=== PATIENT | male | born 1945 | race Caucasian/White ===

== ENCOUNTER 2019-06-25 07:41 | Inpatient (IN) ==
--- NOTE | 2019-05-30 09:30 | PAT Medication Instructions ---
Medication Instructions Date of Service May 30, 2019 Home Medications Levemir FlexTouch U-100 Insuln 24 unit SUBCUT QPM Novolog Flexpen U-100 Insulin 6 - 12 unit SUBCUT TIDM aspirin [Aspir-81] 81 mg PO HS metformin 1,000 mg PO BIDM rosuvastatin 20 mg PO HS lisinopril 20 mg PO QDD ASK your prescriber and surgeon aspirin [Aspir-81] 81 mg PO HS DO NOT take the morning of surgery Novolog Flexpen U-100 Insulin 6 - 12 unit SUBCUT TIDM metformin 1,000 mg PO BIDM Take evening before surgery Levemir FlexTouch U-100 Insuln 24 unit SUBCUT QPM Novolog Flexpen U-100 Insulin 6 - 12 unit SUBCUT TIDM metformin 1,000 mg PO BIDM rosuvastatin 20 mg PO HS lisinopril 20 mg PO QDD Other Notes If you have any questions please call us at [phone] or [phone] or [phone] or [phone]
--- NOTE | 2019-05-30 11:22 | Anesthesiology Consultation ---
Date of Service May 30, 2019 Assessment & Plan (1) Encounter for pre-operative examination: - Abnormal stress test (2017): per patient, subsequent cardiac cath done (most recent he believes was 02/2019 at [facility]) with unremarkable findings. Attemp ting to obtain most recent cardiac testing (including cardiac cath since abnormal stress test) and cardiology office optimization response (Dr. Keith). - Awaiting review preop testing (labs, EKG, CXR). - ASA instructions per surgeon/cardiology. Chart Review Chart Review: Patient seen in Pre Admission Testing Teaching & Discussion Pre-Anesthesia Teaching/Discussion Notes: Instructed NPO after midnight before surgery,except medications with 15 cc of water. Medication instructions provided according to the PAT guidelines. History Surgery Operation Date: 06/25/19 07:30 Proposed Procedures p Right Reversed Total Shoulder Arthroplasty - Abhijit Cabral MD Height/Weight Height: 6 ft Weight: 99.1 kg Allergies Allergy/AdvReac Type Severity Reaction Status Date / Time erythromycin base AdvReac Intermediate N/V, Verified 05/30/19 11:21 hematuria shellfish derived AdvReac severe Verified 05/30/19 11:21 nausea Medications Home Medications Medication Instructions Recorded Confirmed Last Taken Levemir FlexTouch U-100 Insuln 24 unit SUBCUT QPM 06/10/18 05/26/19 06/20/18 22:00 Novolog Flexpen U-100 Insulin 6 - 12 unit SUBCUT TIDM 06/10/18 05/26/19 06/20/18 19:00 aspirin [Aspir-81] 81 mg PO HS 06/10/18 05/26/19 06/20/18 23:30 metformin 1,000 mg PO BIDM 06/10/18 05/26/19 06/18/18 18:00 rosuvastatin 20 mg PO HS 06/10/18 05/26/19 06/20/18 22:00 lisinopril 20 mg PO QDD 05/26/19 05/26/19 Unknown Past Medical History Medical History Degenerative disc disease cervical/lumbar with UE/LE radiculopathy Diabetes mellitus, type 2 IDDM Hiatal hernia Hx of skin cancer, basal cell Hyperlipidemia Hypertension Neuropathy of both feet results in difficulty with ambulation Osteoarthritis Sleep apnea did not tolerate CPAP Exercise / Class Metabolic Activity II 4-5 Yardwork/Stairs/Walk up hill Past Family History Family History Mother Family history of diabetes mellitus Grandfather (Paternal) Family history of diabetes mellitus Grandmother (Maternal) Family history of diabetes mellitus Past Surgical History Surgical History History of bunionectomy WITH SANCHEZ IMPLANTED - RIGHT History of cardiac cath 02/2019 (per patient, attempting to obtain) = NO STENTS History of eye surgery b/l UE eyelid "lift" + eye fat pad excision History of lumbar fusion Hardware removal, L3-L4 decompression/fusion: 06/21/18: Grade 1 view, MAC#3, ETT 8.0 at [facility] History of tonsillectomy and adenoidectomy + UVULA REMOVED Hx of LASIK BILATERAL EYES Hx of bilateral cataract extraction Hx of colonoscopy Hx of nasal septoplasty Hx of rotator cuff surgery 3 L/1 R Hx of thumb surgery X2 - STEEL ASNCHEZ IMPLANTED Hx of total hip arthroplasty RIGHT Past Anesthesia History No Hx of Anesthesia Complications and No Family Hx of Anesthesia Complications History of PONV No Hx of PONV and No Hx of Motion Sickness Social History Smoking Status: Never smoker Do You Dip or Chew Tobacco: No Hx Alcohol Use: Yes Alcohol type: wine alcohol intake frequency: a few times a month Hx Substance Use: No substance use type: does not use Review of Systems Seasonal allergies/congestion. Patient denies chest pain, shortness of breath, dyspnea on exertion, reflux, cough, wheezing, palpitations. Physical Exam Vital Signs VITALS BP 126/70 P 53 TEMP 97.6 SP02 99%RA RESP 16 PHYSICAL Full neck and c-spine range of motion. Full TMJ range of motion. TMD 3 finger breaths Mallampati Score 1 Dentition: several implants, several caps including upper front Lungs: clear throughout to auscultation Cardiac: regular rate and rhythm, no murmurs noted Spine: normal Carotid arteries: negative bruit Extremities: no edema Eyelid tape and lower eyelid bruising s/p recent eyelid "lift" and lower eye "fa t pad" excision Testing Laboratory Results 05/30/19 11:40 05/30/19 11:40 PT 9.8 Seconds (9.0-12.0) 05/30/19 11:40 INR 1.0 (0.9-1.1) 05/30/19 11:40 APTT 25.1 Seconds (21.0-31.0) 05/30/19 11:40 Urine Color Yellow 05/30/19 Unknown Urine Appearance Clear (Clear) 05/30/19 Unknown Urine pH 5.0 (4.5-7.5) 05/30/19 Unknown Ur Specific [place] 1.022 (1.000-1.030) 05/30/19 Unknown Urine Protein Negative (Negative) 05/30/19 Unknown Urine Glucose (UA) 3+ (Negative) H 05/30/19 Unknown Urine Ketones Negative (Negative) 05/30/19 Unknown Urine Nitrite Negative (Negative) 05/30/19 Unknown Ur Leukocyte Esterase Negative (Negative) 05/30/19 Unknown Stress Test Date: 08/15/17 Type: exercise Exercise stress ECHO with basal and mid anterolateral ischemia. Good functional status for age. 10 METS. EF 55%. *Per patient, subsequent cardiac cath done ([facility])*
--- NOTE | 2019-05-30 12:04 | XRay Report ---
TWO VIEW CHEST CLINICAL HISTORY: Preoperative examination. FINDINGS: PA and lateral chest radiographs are compared to study dated 06/13/2018. The heart is mildl y enlarged noting atherosclerotic calcification of the thoracic aorta. Chronic interstitial thickenin g is similar to previous. No airspace consolidation or pleural effusion is identified. There is no pn eumothorax. The skeletal structures are osteopenic. The bony thorax appears intact. IMPRESSION: Mild cardiomegaly with no active disease in the chest. Electronically signed by: Alejandro Mercedes M.D. 05/30/2019 12:03 PM
[2019-05-30 12:39] LABS: Appearance Urine Clear (Clear); Bilirubin Urine Negative (Negative); Blood Urine Negative (Negative); Color Urine Yellow; Glucose Urine UA 3+ (Negative); Ketones Urine Negative (Negative); Leukocyte Esterase Urine Negative (Negative); Nitrite Urine Negative (Negative); Protein Urine Negative (Negative); Specific Gravity Urine 1.022 (1.000-1.030); Urobilinogen Urine Negative (Negative)
[2019-05-30 12:39] LABS: Basophils # (auto) 0.04 K/uL (0-0.2); Basophils % (auto) 0.5 %; Eosinophils % (auto) 1.3 %; Hematocrit (blood only) 42.9 % (42-52); Hemoglobin 14.7 g/dL (14.0-18.0); Immature Granulocytes # (auto) 0.02 K/uL (0.00-0.02); Immature Granulocytes % (auto) 0.3 %; Lymphocytes # (auto) 2.33 K/uL (1.2-3.4); Mean Corpuscular Hemoglobin 30.9 pg (25-34); Mean Corpuscular Hgb Conc 34.3 g/dL (32-36); Mean Corpuscular Volume 90.1 fL (80-100); Mean Platelet Volume 9.6 fL (7.4-10.4); Monocytes # (auto) 0.66 K/uL (0.11-0.59); Monocytes % (auto) 8.8 %; Neutrophils # (auto) 4.37 K/uL (1.4-6.5); Neutrophils % (auto) 58.1 %; Platelet Count 224 K/uL (130-400); RDW Coefficient of Variation 12.7 % (11.5-14.5); Red Blood Count 4.76 M/uL (4.7-6.1); White Blood Count 7.52 K/uL (4.8-10.8)
[2019-05-30 12:53] LABS: Partial Thromboplastin Ratio 0.9; Partial Thromboplastin Time 25.1 Seconds (21.0-31.0); Prothrombin Time 9.8 Seconds (9.0-12.0)
[2019-05-30 12:54] LABS: Albumin Level 3.8 gm/dl (3.4-5.0); Calcium 9.6 mg/dl (8.5-10.1); Creatinine Clr Calc Pharmacy 61.8 ml/min; Est GFR (African American) 64.2; Est GFR (Non-African American) 55.4; Potassium 4.5 mmol/L (3.5-5.1)
[2019-05-30 13:10] LABS: Estimated Average Glucose 171 mg/dl; Hemoglobin A1C 7.6 % (4.5-5.6)
--- NOTE | 2019-06-24 19:02 | History and Physical Report ---
DATE OF ADMISSION: 06/25/2019 CHIEF COMPLAINT: Right shoulder pain and weakness. HISTORY OF PRESENT ILLNESS: This is a 74-year-old male patient of Dr. Wilson, complaining of chronic right shoulder pain and weakness, longstanding, now progressively getting worse. The patient has failed conservative treatment including a rotator cuff repair in the past. MRI has confirmed chronic rotator cuff tear. The patient wished to proceed with a right reverse total shoulder arthroplasty. PAST MEDICAL HISTORY: Hypertension, hypercholesterolemia, sleep apnea with the use of CPAP, peripheral neuropathy, diabetes mellitus with insulin, spine problems, neck problems, upper back problems, sciatica, skin cancer. SOCIAL HISTORY: Nonsmoker, occasional drinker. FAMILY HISTORY: Noncontributory. REVIEW OF SYSTEMS: Chronic right shoulder pain and decreased strength, otherwise denies any shortness of breath, chest pain, nausea, vomiting or any other joint complaints. PAST SURGICAL HISTORY: Tonsillectomy, LASIK, shoulder surgery, bilateral eyes, right total hip, right thumb and lumbar surgery x2. ALLERGIES: ERYTHROMYCIN AND SHELLFISH. PHYSICAL EXAMINATION: GENERAL: Well-developed, well-nourished 74-year-old male in no acute distress. He is alert and oriented x3 and pleasant. HEENT: Normocephalic, atraumatic. Extraocular motions are intact. Pupils are equal and reactive to light. HEART: Regular rate and rhythm. No murmurs appreciated. LUNGS: Clear. ABDOMEN: Soft, nontender, bowel sounds present. EXTREMITIES: Right shoulder full range of motion with pain. He has crepitation with passive range of motion. He has 4/5 strength. Neurologically and neurovascularly, he is intact in his right upper extremity. DIAGNOSES: Right shoulder rotator cuff arthropathy, hypertension, hypercholesterolemia, sleep apnea, peripheral neuropathy, diabetes mellitus with insulin, spine problems, neck problems, upper back problems, sciatica, skin cancer. PLAN: The patient was advised of her diagnosis. Indications, risks, benefits, postop course have all been reviewed. The patient wishes to proceed with a right reversed total shoulder arthroplasty. Necessary consent forms, preoperative testing and clearances will be obtained.
[~2019-06-25 07:41] MED LIST: ACETAMINOPHEN 500 MG TAB PO SCH; CEFAZOLIN 2000MG 2,000 MG/15 ML SYR IV SCH; CeleBREX 200 MG CAP PO SCH; FAMOTIDINE 20 MG TAB PO SCH; GABAPENTIN 300 MG CAP PO SCH; LR 15ML/HR IV SCH; METOCLOPRAMIDE HCL 10 MG TABLET PO SCH; ROPIVACAINE 0.5% 5 MG/ML 30 ML VIAL ONE
[2019-06-25] MEDS ORDERED: LIDOCAINE HCL 2% 2 ML VIAL/AMP(20MG/ML) INFIL ONE (09:26)
[2019-06-25] MEDS ORDERED: PROPOFOL IV EMULSION 10 MG/ML 20 ML VIAL IV ONE (09:26)
[2019-06-25] MEDS ORDERED: DEXAMETHASONE SOD INJ 4 MG/ML VIAL ONE (09:26)
[2019-06-25] MEDS ORDERED: MIDAZOLAM HCL 1 MG/ML 2ML VIAL ONE ×2 (09:26)
[2019-06-25] MEDS ORDERED: GLYCOPYRROLATE 0.2 MG/ML VIAL ONE ×2 (09:26→11:49)
[2019-06-25] MEDS ORDERED: ONDANSETRON INJ 2 MG/ML 2 ML VIAL ONE (09:26)
[2019-06-25] MEDS ORDERED: NEOSTIGMINE METHYLSULFATE 5 MG/5 ML SYR ONE (09:26)
[2019-06-25] MEDS ORDERED: fentaNYL citrate 100 MCG/2 ML VIAL ONE (09:27)
--- NOTE | 2019-06-25 10:25 | History & Physical Bridge Note ---
Date of Service June 25, 2019 History & Physical Bridge Note I have examined the patient, reviewed the History & Physical and in the interval since the performance of the History & Physical I have noted the following changes of clinical significance: no changes noted
[2019-06-25] MEDS ORDERED: BACITRACIN INJ 50,000 UNIT VIAL ONE (10:28)
[2019-06-25] MEDS ORDERED: ONDANSETRON INJ 2 MG/ML 2 ML VIAL IV PRN ×2 (10:44→14:57)
[2019-06-25] MEDS ORDERED: fentaNYL citrate 100 MCG/2 ML VIAL IV PRN (10:44)
[2019-06-25] MEDS ORDERED: ATROPINE SULFATE 0.1 MG/ML 10ML SYR IV PRN (10:44)
[2019-06-25] MEDS ORDERED: ePHEDrine sulfate 50 MG/ML AMP IV PRN (10:44)
[2019-06-25] MEDS ORDERED: PHENYLEPHRINE 100MCG/ML 5ML SYR ONE (11:49)
[2019-06-25] MEDS ORDERED: ePHEDrine sulfate 50 MG/ML SYR ONE (11:49)
[2019-06-25] MEDS ORDERED: ROCURONIUM BROMIDE 10 MG/ML 5 ML VIAL ONE (11:49)
--- NOTE | 2019-06-25 13:22 | Post Operative Brief Note ---
Immediate Post Op Note v1 Date of Surgery June 25, 2019 Pre & Post Diagnosis Operation Date: 06/25/19 10:10 Pre-Op Diagnosis: Right Shoulder Rotator Cuff Arthropathy chronic rotator cuff tear, failed rotator cuff repair, biceps tendon rupture Post-Op Diagnosis: Right Shoulder Rotator Cuff Arthropathy chronic rotator cuff tear, failed rotator cuff repair, biceps tendon rupture I identified the patient and participated in the time-out.: Yes Procedure Operation Date: 06/25/19 10:10 Actual Procedures p Right Reversed Total Shoulder Arthroplasty(Right) - Abhijit Cabral MD Surgeon Abhijit Cabral MD Journeyman Level Acoustic Analyst Malcolm VAUGHAN Estimated Blood Loss 100 Findings Consistent with Post-Op Diagnosis Specimens Humeral head Drains Hemovac Drain (dual 10 georgian) Anesthesia Type General Regional Complications none Disposition Accompanied Patient To Recovery: No Disposition: Recovery Room Overlapping Procedure I was immediately available: during the entire case.
--- NOTE | 2019-06-25 13:43 | Operative Report ---
Post Operative Report Pre & Post Diagnosis Operation Date: 06/25/19 10:10 Pre-Op Diagnosis: Right Shoulder Rotator Cuff Arthropathy, chronic rotator cuff tear, failed rotator cuff repair, chronic biceps rupture Post-Op Diagnosis: Right Shoulder Rotator Cuff Arthropathy, chronic rotator cuff tear, failed rotator cuff repair, chronic biceps rupture I identified the patient and participated in the time-out.: Yes Procedure Operation Date: 06/25/19 10:10 Actual Procedures p Right Reversed Total Shoulder Arthroplasty(Right) - Abhijit Cabral MD Surgeon Abhijit Cabral MD Ship Cleaner Malcolm VAUGHAN Estimated Blood Loss 100 Findings Consistent with Post-Op Diagnosis Specimens Humeral head Drains 2 Hemovac Anesthesia Type General Regional Complications none Disposition Accompanied Patient To Recovery: No Disposition: Recovery Room Indications 74-year-old male with remote history of rotator cuff repair done open. Patient mentioned failure rotator cuff repair chronic progressive pain over time has rotator cuff arthropathy has a chronic biceps rupture with retraction. His left less painful shoulder has similar exam. Patient has progressive pain failed conservative management and wants to proceed with reverse shoulder replacement surgery. Description of Procedure The patient was taken to the operating room and anesthetized under regional block and general anesthetic. The patient was positioned on the operating table in a 30 beachchair position with a towel roll under the medial border of the right scapula. The arm was draped free to be able to manipulate the shoulder as needed. The right upper extremity was prepped and draped in usual sterile fashion. Exam demonstrated subacromial crepitation good passive range of motion with 170 degrees forward elevation external rotation to 80 degrees internal rotation 90 degrees. There was an old saber scar across the shoulder. An anterior deltopectoral approach was performed. A longitudinal incision was made in the deltopectoral interval. The skin was incised sharply. Subcutaneous flaps were elevated off the fascia. The cephalic vein was dissected out and retracted lateral with the deltoid. The clavipectoral fascia was divided at the lateral margin of the conjoined tendon and extended up to the CA ligament. The following findings were noted there was chronic thickened subacromial bursa and the bursa extended over the subscapularis tendon. Subscapularis tendon was intact. Biceps tendon was absent retracted. The supraspinatus tendon was torn. The anterior infraspinatus tendon was torn. The posterior infraspinatus and teres minor were intact. There was chronic thickened subacromial bursa and capsule. The upper centimeter of the pectoralis was released for inferior exposure. The subscapularis tendon was taken down off the lesser tuberosity using a subperiosteal dissection. A #1 Vicryl traction suture was placed into the free end of the subscapularis tendon and capsule. The subscapular muscle fibers were split longitudinally at the level of the circumflex vessels. The circumflex vessels were identified and tied off with silk ties and divided laterally. A Kitner elevator was used to free up the inferior fibers of the subscapularis off of the capsule. The axillary nerve was identified with a tug test and protected with a blunt Jo retractor between the nerve and the capsule. The subscapularis tendon was then taken down off of the lesser tuberosity subperiosteally and subperiosteal dissection was performed along the neck of the humerus as the arm is gradually externally rotated exposing the humeral head. The humeral head findings demonstrated grade III chondromalacia superior head with some fissures in the articular surface and centrally there was a soft spot with fibrocartilage which could have been a small area of avascular necrosis of the humeral head. There were some inferior posterior and anterior osteophytes small to moderate size. retractors were readjusted and the inferior osteophytes were all resected using an artist chisel. A Phillips elevator was used to assist in releasing the capsule of the neck of the humerus. The capsule was divided with Leung scissors down to the glenoid released off the anterior glenoid and the rotator interval was released to meet the capsular release and a 360 release of the subscapularis was accomplished. A Fukuda retractor was placed into the joint retracting the humeral head posterior. Glenoid findings demonstrated 2-3 chondromalacia some degeneration of the labrum and absent biceps tendon. The labrum was resected. an anterior-inferior and posterior inferior capsular release were performed with electrocautery and a Phillips elevator on bone with the axillary nerve protected inferiorly by the retractor. Attention was then taken to the humeral preparation. The cutting guide was placed into the humeral head. It was positioned at 20 of retroversion. Oscillating saw was used to resect the humeral head giving the cut above the level of the posterior rotator cuff insertion site. The humerus was then prepared for the stem. I used the ascend flex stem from [employer]. The sizing broaches were used followed by trial broaches up to a size 5 which had the appropriate fit and fill. The appropriate sized cut protector was placed. The humerus was then retracted posterior to the glenoid. The glenoid was sized for a 29. The guide for the baseplate was positioned in a 10 inferior tilt and the central drill hole was made. The reamer for the 29 baseplate was used. The central drill was widened for the peg. The 29 hydroxyapatite-coated baseplate was impacted into position. The base plate was transfixed with superior and inferior locking screws and anterior and posterior compression screws with stable fixation. The fan reamer was used for the 42 millimeter glenoid sphere. After irrigation the 42 standard aequalis glenoid sphere was impacted onto the baseplate and the screw was tightened. Attention was taken back to the humerus. The cut protector was removed and the plus 0 high offset humeral tray trial was assembled to the trial stem rotated appropriately to get bony coverage and then screwed in position. A trial reduction was performed. A 42+6 trial insert demonstrated good stability and no shuck. The trials were removed. 3 drill holes are made into the harder bone in the bicipital groove area and 3 #5 FiberWire sutures were placed transosseously. The canal was irrigated with antibiotic solution with bacitracin. The final component was assembled. The final component was 5B long stem plus or high offset humeral tray with 42+6 polyethylene insert. This was then impacted into the humerus with a tight press-fit. It was reduced to the glenoid sphere. Stability was verified. Subscapularis was repaired with the #5 FiberWire sutures using Juan-Andres suture technique. Lateral row soft tissue repair was performed with #2 FiberWire [id number] sutures. The pectoralis was repaired with #2 FiberWire [id number] sutures. The arm was taken through a range of motion which demonstrated 150 degrees forward elevation 80 degrees external rotation and 90 degrees abduction without tension on repair. The implant was stable through the range of motion tested. The wound was copiously irrigated. 2 Hemovac drains were placed. The deltopectoral interval was closed with [id number] #1 Vicryl sutures. The subcutaneous tissues were closed with 2-0 Vicryl sutures. The skin was closed with gina. Sterile dressings were applied and a shoulder immobilizer. Malcolm VAUGHAN my physician tv production assistant assisted in the procedure to the entire procedure including patient positioning arm positioning prepping and draping soft tissue retraction instrument management suture management and performed the subcutaneous and skin closure and will participate in the postoperative care of the patient. I attest to the content of the Intraoperative Record and any orders documented therein. Any exceptions are noted below.
--- NOTE | 2019-06-25 14:44 | XRay Report ---
XR shoulder RT min 2V routine CLINICAL HISTORY: Post shoulder surgery COMPARISON: None. DISCUSSION: There are postsurgical changes of a reverse total right shoulder arthroplasty. There are overlying surgical drains. There are overlying skin gina. There is no dislocation. There is soft t issue gas consistent with recent surgery. There are low lung volumes. IMPRESSION: Postsurgical changes of a reverse total right shoulder arthroplasty Electronically signed by: Kaden Lopez M.D. 06/25/2019 2:43 PM
--- NOTE | 2019-06-25 14:48 | Anesthesiology Progress Note ---
Date of Service June 25, 2019 Anesthesia Post Procedure Vital Signs Vital Signs: Temp Pulse Pulse Resp BP BP Pulse Ox 06/25/19 14:40 36.6 C 52 L 14 110/63 97 06/25/19 14:30 50 L 14 113/59 L 97 06/25/19 14:20 53 L 14 114/62 97 06/25/19 14:10 55 L 13 110/59 L 97 06/25/19 14:00 54 L 13 112/62 100 06/25/19 13:50 56 L 13 116/62 100 06/25/19 13:40 36.2 C L 57 L 16 120/61 98 06/25/19 07:59 36.4 C L 55 L 18 153/71 H 99 Transfer of Care Handoff Completed per policy Notes Mental Status: alert / awake / arousable and participated in evaluation Patient Amnestic to Procedure: Yes Nausea / Vomiting: adequately controlled Pain: adequately controlled Airway Patency, RR, SpO2: stable & adequate BP & HR: stable & adequate Hydration State: stable & adequate Anesthetic Complications: no major complications apparent and Pt Satisfied with anesthetic care Notes: Block is functioning well.
[2019-06-25] MEDS ORDERED: SODIUM CHLORIDE 0.9% 1000ML 1,000 ML IV SCH (14:57)
[2019-06-25] MEDS ORDERED: MAGNESIUM HYDROXIDE SUSP 30 ML UDC PO PRN (14:57)
[2019-06-25] MEDS ORDERED: NALOXONE HCL 0.4 MG/1 ML VIAL/CARP IV PRN (14:57)
[2019-06-25] MEDS ORDERED: BISACODYL 10 MG SUPP PR PRN (14:57)
[2019-06-25] MEDS ORDERED: HYDROmorphone INJ 0.5 MG/0.5 ML SYR IV PRN (14:57)
[2019-06-25] MEDS ORDERED: PHARMACY GLYCEMIC MGMT CONSULT PRN (15:16)
[2019-06-25] MEDS ORDERED: GLUCAGON FOR INJ 1 MG VIAL IM PRN (15:30)
[2019-06-25] MEDS ORDERED: INSULIN DETEMIR FLEXPEN/FLEX TOUCH 100 UNITS/ML 3ML SC ONE (15:30)
[2019-06-25] MEDS ORDERED: DEXTROSE 50% 50 ML SYRINGE IV PRN (15:30)
[2019-06-25] MEDS ORDERED: CARBOHYDRATES FOR HYPOGLYCEMIA PO PRN (15:30)
[2019-06-25] MEDS ORDERED: GLUCOSE 40% GEL 15 GM TUBE PO PRN (15:30)
[2019-06-25] MEDS ORDERED: GLUCOSE 10 TABS/TUBE PO PRN (15:30)
--- NOTE | 2019-06-25 15:39 | Pharmacy Report ---
Glycemic Control Consultation - Date of Service June 25, 2019 - Scope Scope: Glycemic Pharmacist consulted for glycemic control and to write orders per [facility] inpatient glycemic control protocol - Objective Weight: 101 kg Accuchecks BSG (last 24hrs): 06/25/19 06/25/19 06/25/19 08:16 13:42 14:37 POC Glucose 113 H 133 H 158 H HbA1c: Hemoglobin A1c 7.6 % (4.5-5.6) H 05/30/19 11:40 - Recent Pertinent Medications Outpatient Anti-diabetic Regimen: * Metformin 1 g po BID * Levemir 24 units SC qPM * Novolog 6-12 units SC TIDM * HbA1c 7.6% on 05/30/19 Risk Factors for Insulin Resistance: * Steroids: dexamethasone 4 mg IV preop (8mg vended and then returned to Omni, but additional 4 mg vended therefore assume was administered) * Infection: cefazolin periop * Recent Surgery: POD 0 s/p R reverse total shoulder arthroplasty * Diet: T2DM - Assessment & Plan Assessment & Plan: ASSESSMENT: * 74 yo M with T2DM with good outpatient control on metformin and basal/bolus insulin admitted * Pt is maintained on oral antidiabetic agent as an outpatient * Oral agents are not recommended for inpatient use d/t drug interactions, changing PO intake, and difficulty titrating for acute hyper/hypoglycemia. ADA recommends re-initiating outpatient oral agents 1-2 days prior to discharge if/when appropriate if they were held on admission. * Will hold oral agent for admission and utilize SQ basal bolus insulin regimen which is the recommended regimen for inpatient glycemic control. * Will utilize more stringent goal of 110-140mg/dL as tighter glycemic control is warranted to facilitate wound/infection healing. * Steroid dose this AM anticipated to increase insulin resistance (in addition to physiologic stress due to surgery) * Patient will likely require temporary increase in Levemir dose 2nd stressors - last received full outpatient dose last night per medication history. Will therefore only give small supplemental dose now but provide additional insulin tonight based on BSG. Total daily dose at a minimum with equal outpatient dose * Will initiate Novolog at slightly tighter than weight-based moderate stress estimate and add an overnight check PLAN FOR INPATIENT GLYCEMIC CONTROL: * Hold outpatient oral diabetes medications. Anticipate ability to resume metformin on POD 2, assuming SCr OK. * Basal insulin: Levemir 10 units SC x1 now. Additional tonight based on BSG. * 15 units for BSG less than 140 mg/dL * 20 units for BSG 140-180 mg/dL * 25 units for BSG 180 mg/dL or greater * Bolus insulin * NovoLog per scale ACHS or Q6hrs while NPO with one overnight check * Goal Range: Low 110 mg/dL - High 140 mg/dL * Correction Factor: 25 mg/dL/unit * Nutritional / Prandial insulin per carb ratio of 1 unit per 7 grams CHO consumed * Please note that the plan above was derived based on current level of insulin resistance and hospital stress. These recommendations are appropriate for inpatient admission only. Plan of care upon discharge will need to be reassessed to avoid potential outpatient hypo/hyperglycemia. Thank you.
[2019-06-25] MEDS: ACETAMINOPHEN 500 MG TAB PO SCH ×2 (16:32→21:39)
[2019-06-25] MEDS: LISINOPRIL 20 MG TAB PO SCH (16:42)
[2019-06-25] MEDS: INSULIN ASPART 100 UNITS/ML 3 ML PEN SC SCH ×2 (17:18→20:44)
--- NOTE | 2019-06-25 17:42 | Hospitalist Consultation ---
Date of Consultation June 25, 2019 Assessment & Plan (1) Status post reverse arthroplasty of right shoulder: Surgery performed earlier today by Dr. Cabral, well-tolerated with no complications identified. Pain is well controlled at present. -Continue pain, nausea and bowel regimens per primary team -Dilaudid, oxycodone, Tylenol as needed -Zofran and Benadryl as needed -Senna, docusate and magnesium hydroxide as needed Present on Admission?: Yes (2) Diabetes mellitus: Blood sugar presently 164. Hemoglobin A1c on 05/30/2019 = 7.6. A glycemic management consult has been put in to pharmacy by the primary team -Patient on Levemir and NovoLog sliding scale with correction factor of 25 and carb ratio of 7 -Goal blood sugar 110-140 while inpatient -Continue per pharmacy -Metformin is being held while inpatient. It can be resumed upon discharge -Continue aspirin 81 mg p.o. daily Present on Admission?: Yes (3) HTN (hypertension): Blood pressure currently well controlled at 124/70. Continue lisinopril 20 mg p.o. daily Present on Admission?: Yes (4) Dyslipidemia: Chronic. Stable. Continue Crestor 20 mg p.o. daily Thank you very much for this consult. Please do not hesitate to contact us with any additional questions or concerns. The Hospitalist service will sign off at this time. Pager: [phone] Present on Admission?: Yes History of Present Illness Reason for Consultation: Postoperative medical management Attending Physician: Abhijit Cabral MD History of Present Illness Mr. Brandt Olivarez is a pleasant 74-year-old male with history of type 2 diabetes on insulin therapy, hypertension, hyperlipidemia status post right reverse total shoulder arthroplasty performed today by Dr. Cabral for chronic rotator cuff tear with failed repair and biceps tendon rupture. Procedu re was well-tolerated, blood loss was minimal. Patient is back in his room sitting upright in bed, no acute complaints, right arm is in sling, Hemovac drain in place. Still with numbness secondary to the nerve block. Denies pain/nausea/vomiting. He ate lunch without difficulty. No additional complaints at this time Allergies Allergy/AdvReac Type Severity Reaction Status Date / Time erythromycin base AdvReac Intermediate N/V, Verified 06/25/19 08:06 hematuria shellfish derived AdvReac severe Verified 06/25/19 08:06 nausea Home Medications Home Medications Medication Instructions Recorded Confirmed Type Levemir FlexTouch U-100 Insuln 24 unit SUBCUT QPM 06/10/18 06/25/19 History Novolog Flexpen U-100 Insulin 6 - 12 unit SUBCUT TIDM 06/10/18 06/25/19 History aspirin [Aspir-81] 81 mg PO HS 06/10/18 06/25/19 History metformin 1,000 mg PO BIDM 06/10/18 06/25/19 History rosuvastatin 20 mg PO HS 06/10/18 06/25/19 History lisinopril 20 mg PO QDD 05/26/19 06/25/19 History Patient History Family History Mother Family history of diabetes mellitus Grandfather (Paternal) Family history of diabetes mellitus Grandmother (Maternal) Family history of diabetes mellitus Social History Preferred Language: Swedish Communication Ability: Effective 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 Beliefs That Will Affect Care: None Current Living Situation: Spouse Feels Safe at Home: Yes Safety Concerns: Feels Safe At This Time Smoking Status: Never smoker Do You Dip or Chew Tobacco: No ; Second Hand Exposure: No ; Hx Alcohol Use: Yes Alcohol type: wine Hx Substance Use: No Review of Systems Review of Systems: All systems reviewed & are unremarkable except as noted in HPI & below Physical Exam Physical Exam: General: Pleasant male patient resting comfortably in bed, appears younger than stated age, NAD, non-toxic in appearance, AA&O x 4 Skin: warm, dry, no rashes or lesions HEENT: NC/AT, PERRL, EOMI, anicteric sclera, conjunctiva without injection, external ear normal to inspection and nontender, nares patent, moist mucus membranes, dentition intact, no oropharyngeal lesions, neck supple, trachea midline, no LAD, no thyromegaly, no JVD Heart: +S1/S2, regular, no m/r/g Lungs: equal air entry bilaterally, no rales/rhonchi/wheezes Abd: +BS, soft, NT/ND, no masses/organomegaly/ascites Ext: warm, 2+ pulses in UE/LE bilaterally, no clubbing/cyanosis or edema, SCDs in place on bilateral lower extremities, right upper extremity immobilized in sling, Hemovac drain in place with bloody output Neuro: nonfocal, patient AA&O x 4, speech intact, no facial droop, moving all extremities on command with equal strength 5/5 Results & Data Vital Signs (Past 12 Hours) Vital Signs Temp Pulse Pulse Resp BP BP Pulse Ox 06/25/19 17:17 36.4 C L 74 17 124/70 96 06/25/19 16:11 36.6 C 62 18 112/69 98 06/25/19 15:30 36.4 C L 60 17 121/68 99 06/25/19 15:02 36.5 C 60 17 119/60 98 06/25/19 14:40 36.6 C 52 L 14 110/63 97 06/25/19 14:30 50 L 14 113/59 L 97 06/25/19 14:20 53 L 14 114/62 97 06/25/19 14:10 55 L 13 110/59 L 97 06/25/19 14:00 54 L 13 112/62 100 06/25/19 13:50 56 L 13 116/62 100 06/25/19 13:40 36.2 C L 57 L 16 120/61 98 06/25/19 07:59 36.4 C L 55 L 18 153/71 H 99 Laboratory Results Lab Results 05/30/19 05/30/19 05/30/19 Range/Units 11:40 11:40 11:40 WBC 7.52 (4.8-10.8) K/uL RBC 4.76 (4.7-6.1) M/uL Hgb 14.7 (14.0-18.0) g/dL Hct 42.9 (42-52) % MCV 90.1 (80-100) fL MCH 30.9 (25-34) pg MCHC 34.3 (32-36) g/dL RDW Std Deviation 42.0 (36.4-46.3) fL RDW Coeff of Nicole 12.7 (11.5-14.5) % Plt Count 224 (130-400) K/uL MPV 9.6 (7.4-10.4) fL Immature Gran % (Auto) 0.3 % Neut % (Auto) 58.1 % Lymph % (Auto) 31.0 % Mckean % (Auto) 8.8 % Eos % (Auto) 1.3 % Baso % (Auto) 0.5 % Immature Gran # (Auto) 0.02 (0.00-0.02) K/uL Neut # (Auto) 4.37 (1.4-6.5) K/uL Lymph # (Auto) 2.33 (1.2-3.4) K/uL Mckean # (Auto) 0.66 H (0.11-0.59) K/uL Eos # (Auto) 0.10 (0-0.5) K/uL Baso # (Auto) 0.04 (0-0.2) K/uL PT 9.8 (9.0-12.0) Seconds INR 1.0 (0.9-1.1) APTT 25.1 (21.0-31.0) Seconds PTT Ratio 0.9 Sodium 138 (136-145) mmol/L Potassium 4.5 (3.5-5.1) mmol/L Chloride 106 (98-107) mmol/L Carbon Dioxide 26 (21-32) mmol/L Anion Gap 7.0 (3-11) BUN 19 H (7-18) mg/dl Creatinine 1.26 (0.6-1.4) mg/dl Est Cr Clr Drug Dosing 61.8 ml/min Est GFR ( Amer) 64.2 Est GFR (Non-Af Amer) 55.4 BUN/Creatinine Ratio 15.0 (10-20) Glucose 164 H (70-99) mg/dl POC Glucose (70-99) Estimat Average Glucose mg/dl Hemoglobin A1c (4.5-5.6) % Calcium 9.6 (8.5-10.1) mg/dl Albumin 3.8 (3.4-5.0) gm/dl Urine Color Urine Appearance (Clear) Urine pH (4.5-7.5) Ur Specific [place] (1.000-1.030) Urine Protein (Negative) Urine Glucose (UA) (Negative) Urine Ketones (Negative) Urine Blood (Negative) Urine Nitrite (Negative) Urine Bilirubin (Negative) Urine Urobilinogen (Negative) Ur Leukocyte Esterase (Negative) Blood Type Antibody Screen 05/30/19 05/30/19 05/30/19 Range/Units 11:40 11:40 Unknown WBC (4.8-10.8) K/uL RBC (4.7-6.1) M/uL Hgb (14.0-18.0) g/dL Hct (42-52) % MCV (80-100) fL MCH (25-34) pg MCHC (32-36) g/dL RDW Std Deviation (36.4-46.3) fL RDW Coeff of Nicole (11.5-14.5) % Plt Count (130-400) K/uL MPV (7.4-10.4) fL Immature Gran % (Auto) % Neut % (Auto) % Lymph % (Auto) % Mckean % (Auto) % Eos % (Auto) % Baso % (Auto) % Immature Gran # (Auto) (0.00-0.02) K/uL Neut # (Auto) (1.4-6.5) K/uL Lymph # (Auto) (1.2-3.4) K/uL Mckean # (Auto) (0.11-0.59) K/uL Eos # (Auto) (0-0.5) K/uL Baso # (Auto) (0-0.2) K/uL PT (9.0-12.0) Seconds INR (0.9-1.1) APTT (21.0-31.0) Seconds PTT Ratio Sodium (136-145) mmol/L Potassium (3.5-5.1) mmol/L Chloride (98-107) mmol/L Carbon Dioxide (21-32) mmol/L Anion Gap (3-11) BUN (7-18) mg/dl Creatinine (0.6-1.4) mg/dl Est Cr Clr Drug Dosing ml/min Est GFR ( Amer) Est GFR (Non-Af Amer) BUN/Creatinine Ratio (10-20) Glucose (70-99) mg/dl POC Glucose (70-99) Estimat Average Glucose 171 mg/dl Hemoglobin A1c 7.6 H (4.5-5.6) % Calcium (8.5-10.1) mg/dl Albumin (3.4-5.0) gm/dl Urine Color Yellow Urine Appearance Clear (Clear) Urine pH 5.0 (4.5-7.5) Ur Specific [place] 1.022 (1.000-1.030) Urine Protein Negative (Negative) Urine Glucose (UA) 3+ H (Negative) Urine Ketones Negative (Negative) Urine Blood Negative (Negative) Urine Nitrite Negative (Negative) Urine Bilirubin Negative (Negative) Urine Urobilinogen Negative (Negative) Ur Leukocyte Esterase Negative (Negative) Blood Type A Positive Antibody Screen NEGATIVE 06/25/19 06/25/19 06/25/19 Range/Units 08:16 13:42 14:37 WBC (4.8-10.8) K/uL RBC (4.7-6.1) M/uL Hgb (14.0-18.0) g/dL Hct (42-52) % MCV (80-100) fL MCH (25-34) pg MCHC (32-36) g/dL RDW Std Deviation (36.4-46.3) fL RDW Coeff of Nicole (11.5-14.5) % Plt Count (130-400) K/uL MPV (7.4-10.4) fL Immature Gran % (Auto) % Neut % (Auto) % Lymph % (Auto) % Mckean % (Auto) % Eos % (Auto) % Baso % (Auto) % Immature Gran # (Auto) (0.00-0.02) K/uL Neut # (Auto) (1.4-6.5) K/uL Lymph # (Auto) (1.2-3.4) K/uL Mckean # (Auto) (0.11-0.59) K/uL Eos # (Auto) (0-0.5) K/uL Baso # (Auto) (0-0.2) K/uL PT (9.0-12.0) Seconds INR (0.9-1.1) APTT (21.0-31.0) Seconds PTT Ratio Sodium (136-145) mmol/L Potassium (3.5-5.1) mmol/L Chloride (98-107) mmol/L Carbon Dioxide (21-32) mmol/L Anion Gap (3-11) BUN (7-18) mg/dl Creatinine (0.6-1.4) mg/dl Est Cr Clr Drug Dosing ml/min Est GFR ( Amer) Est GFR (Non-Af Amer) BUN/Creatinine Ratio (10-20) Glucose (70-99) mg/dl POC Glucose 113 H 133 H 158 H (70-99) Estimat Average Glucose mg/dl Hemoglobin A1c (4.5-5.6) % Calcium (8.5-10.1) mg/dl Albumin (3.4-5.0) gm/dl Urine Color Urine Appearance (Clear) Urine pH (4.5-7.5) Ur Specific [place] (1.000-1.030) Urine Protein (Negative) Urine Glucose (UA) (Negative) Urine Ketones (Negative) Urine Blood (Negative) Urine Nitrite (Negative) Urine Bilirubin (Negative) Urine Urobilinogen (Negative) Ur Leukocyte Esterase (Negative) Blood Type Antibody Screen 06/25/19 Range/Units 16:38 WBC (4.8-10.8) K/uL RBC (4.7-6.1) M/uL Hgb (14.0-18.0) g/dL Hct (42-52) % MCV (80-100) fL MCH (25-34) pg MCHC (32-36) g/dL RDW Std Deviation (36.4-46.3) fL RDW Coeff of Nicole (11.5-14.5) % Plt Count (130-400) K/uL MPV (7.4-10.4) fL Immature Gran % (Auto) % Neut % (Auto) % Lymph % (Auto) % Mckean % (Auto) % Eos % (Auto) % Baso % (Auto) % Immature Gran # (Auto) (0.00-0.02) K/uL Neut # (Auto) (1.4-6.5) K/uL Lymph # (Auto) (1.2-3.4) K/uL Mckean # (Auto) (0.11-0.59) K/uL Eos # (Auto) (0-0.5) K/uL Baso # (Auto) (0-0.2) K/uL PT (9.0-12.0) Seconds INR (0.9-1.1) APTT (21.0-31.0) Seconds PTT Ratio Sodium (136-145) mmol/L Potassium (3.5-5.1) mmol/L Chloride (98-107) mmol/L Carbon Dioxide (21-32) mmol/L Anion Gap (3-11) BUN (7-18) mg/dl Creatinine (0.6-1.4) mg/dl Est Cr Clr Drug Dosing ml/min Est GFR ( Amer) Est GFR (Non-Af Amer) BUN/Creatinine Ratio (10-20) Glucose (70-99) mg/dl POC Glucose 164 H (70-99) Estimat Average Glucose mg/dl Hemoglobin A1c (4.5-5.6) % Calcium (8.5-10.1) mg/dl Albumin (3.4-5.0) gm/dl Urine Color Urine Appearance (Clear) Urine pH (4.5-7.5) Ur Specific [place] (1.000-1.030) Urine Protein (Negative) Urine Glucose (UA) (Negative) Urine Ketones (Negative) Urine Blood (Negative) Urine Nitrite (Negative) Urine Bilirubin (Negative) Urine Urobilinogen (Negative) Ur Leukocyte Esterase (Negative) Blood Type Antibody Screen Diagnostic Findings XR shoulder RT min 2V routine CLINICAL HISTORY: Post shoulder surgery COMPARISON: None. DISCUSSION: There are postsurgical changes of a reverse total right shoulder arthroplasty. There are overlying surgical drains. There are overlying skin gina. There is no dislocation. There is soft tissue gas consistent with recent surgery. There are low lung volumes. IMPRESSION: Postsurgical changes of a reverse total right shoulder arthroplasty Electronically signed by: Kaden Lopez M.D. 06/25/2019 2:43 PM Dictated: [id number] Transcribed: 06/25/19 144 TWO VIEW CHEST CLINICAL HISTORY: Preoperative examination. FINDINGS: PA and lateral chest radiographs are compared to study dated 06/13/2018. The heart is mildly enlarged noting atherosclerotic calcification of the thoracic aorta. Chronic interstitial thickening is similar to previous. No airspace consolidation or pleural effusion is identified. There is no pneumothorax. The skeletal structures are osteopenic. The bony thorax appears intact. IMPRESSION: Mild cardiomegaly with no active disease in the chest. Electronically signed by: Alejandro Mercedes M.D. 05/30/2019 12:03 PM Dictated: 05/30/19 1202 Transcribed: 05/30/19 1202 ECG Additional Comments: 7 shows sinus bradycardia 52 bpm, left axis deviation, [place] = 196, QRS = 144, QTc = 416. No acute ischemic changes PG Care Time/CCT Total # of Minutes Spent Total Time Spent with Patient: Total time spent is greater than 50% in coordination of care (as documented) at patient's floor/unit and/or counseling patient: (1) Diabetes mellitus Diabetes mellitus type: type 2 Diabetes mellitus [facility] insulin use: with [facility] use Diabetes mellitus complication status: without complication Qualified Code(s): E11.9 - Type 2 diabetes mellitus without complications; Z79.4 - USP (current) use of insulin (2) HTN (hypertension) Hypertension type: essential hypertension Qualified Code(s): I10 - Essential (primary) hypertension
[2019-06-25] MEDS ORDERED: COUGH DROP (SUGAR FREE) LOZ 24 LOZ/1 BOX BUCCAL ONE (18:39)
[2019-06-25] MEDS: CEFAZOLIN 2000MG 2,000 MG/15 ML SYR IV SCH (18:43)
[2019-06-25] MEDS: ASPIRIN 81 MG ECTAB PO SCH (20:43)
[2019-06-25] MEDS: DOCUSATE SODIUM 100 MG CAP PO SCH (20:43)
[2019-06-25] MEDS: ROSUVASTATIN CALCIUM 20 MG TAB PO SCH (20:43)
[2019-06-25] MEDS: SENNA 8.6 MG TAB PO SCH (20:43)
[2019-06-25] MEDS: INSULIN DETEMIR FLEXPEN/FLEX TOUCH 100 UNITS/ML 3ML SC SCH (20:43)
[2019-06-26] MEDS ORDERED: INSULIN ASPART 100 UNITS/ML 3 ML PEN SC ONE (02:00)
[2019-06-26] MEDS: CEFAZOLIN 2000MG 2,000 MG/15 ML SYR IV SCH (03:11)
[2019-06-26] MEDS: OXYCODONE HCL IR 5 MG TAB (IMMEDIATE RELEASE) PO PRN ×5 (03:13→21:14)
[2019-06-26 05:07] LABS: Basophils # (auto) 0.02 K/uL (0-0.2); Basophils % (auto) 0.2 %; Eosinophils # (auto) 0.01 K/uL (0-0.5); Eosinophils % (auto) 0.1 %; Hematocrit (blood only) 37.5 % (42-52); Hemoglobin 12.8 g/dL (14.0-18.0); Immature Granulocytes # (auto) 0.02 K/uL (0.00-0.02); Immature Granulocytes % (auto) 0.2 %; Lymphocytes # (auto) 2.24 K/uL (1.2-3.4); Lymphocytes % (auto) 21.9 %; Mean Corpuscular Hemoglobin 31.3 pg (25-34); Mean Corpuscular Hgb Conc 34.1 g/dL (32-36); Mean Corpuscular Volume 91.7 fL (80-100); Mean Platelet Volume 9.3 fL (7.4-10.4); Monocytes # (auto) 1.08 K/uL (0.11-0.59); Monocytes % (auto) 10.6 %; Neutrophils # (auto) 6.84 K/uL (1.4-6.5); Platelet Count 202 K/uL (130-400); RDW Standard Deviation 43.8 fL (36.4-46.3); Red Blood Count 4.09 M/uL (4.7-6.1); White Blood Count 10.21 K/uL (4.8-10.8)
[2019-06-26 05:26] LABS: BUN Creatinine Ratio 12.9 (10-20); Calcium 8.4 mg/dl (8.5-10.1); Creatinine Clr Calc Pharmacy 55.3 ml/min; Est GFR (African American) 55.6
[2019-06-26] MEDS: ACETAMINOPHEN 500 MG TAB PO SCH ×3 (05:29→21:15)
[2019-06-26] MEDS ORDERED: INSULIN DETEMIR FLEXPEN/FLEX TOUCH 100 UNITS/ML 3ML SC ONE (08:30)
[2019-06-26] MEDS: DOCUSATE SODIUM 100 MG CAP PO SCH ×2 (08:39→21:13)
[2019-06-26] MEDS: MULTIVITAMIN TAB PO SCH (08:39)
[2019-06-26] MEDS: INSULIN ASPART 100 UNITS/ML 3 ML PEN SC SCH ×4 (08:43→21:17)
--- NOTE | 2019-06-26 13:08 | Pharmacy Report ---
Pharmacy Glycemic Short Note 2 - Date of Service June 26, 2019 - Glycemic Short BSG Results (Last 24 hours): 06/25/19 06/25/19 06/25/19 13:42 14:37 16:38 Glucose POC Glucose 133 H 158 H 164 H 06/25/19 06/26/19 06/26/19 20:37 02:00 04:30 Glucose 224 H POC Glucose 274 H 215 H 06/26/19 06/26/19 08:27 12:10 Glucose POC Glucose 193 H 269 H OUTPATIENT ANTIDIABETIC REGIMEN: * Metformin 1 g po BID * Levemir 24 units SC qPM * Novolog 6-12 units SC TIDM * HbA1c 7.6% on 05/30/19 ASSESSMENT: 06/26/19 * POD1, blood sugars above goal, gave supplemental dose of Levemir this morning and increased PM dose, so that patient receives home dose for blood sugar at goal. * Tighten CF and CR further. * Will need to loosen parameters back as steroid effects wear off. 06/25/19 * 74 yo M with T2DM with good outpatient control on metformin and basal/bolus insulin admitted * Pt is maintained on oral antidiabetic agent as an outpatient * Oral agents are not recommended for inpatient use d/t drug interactions, changing PO intake, and difficulty titrating for acute hyper/hypoglycemia. ADA recommends re-initiating outpatient oral agents 1-2 days prior to discharge if/when appropriate if they were held on admission. * Will hold oral agent for admission and utilize SQ basal bolus insulin regimen which is the recommended regimen for inpatient glycemic control. * Will utilize more stringent goal of 110-140mg/dL as tighter glycemic control is warranted to facilitate wound/infection healing. * Steroid dose this AM anticipated to increase insulin resistance (in addition to physiologic stress due to surgery) * Patient will likely require temporary increase in Levemir dose 2nd stressors - last received full outpatient dose last night per medication history. Will therefore only give small supplemental dose now but provide additional insulin tonight based on BSG. Total daily dose at a minimum with equal outpatient dose * Will initiate Novolog at slightly tighter than weight-based moderate stress estimate and add an overnight check PLAN FOR INPATIENT GLYCEMIC CONTROL: * Hold outpatient oral diabetes medications. Anticipate ability to resume metformin on POD 2, assuming SCr OK. * Basal insulin: Levemir 10 units SC x1 this AM then increase: * 20 units for BSG less than 110 mg/dL * 25 units for BSG 110-180 mg/dL * 30 units for BSG 180 mg/dL or greater * Bolus insulin * NovoLog per scale ACHS or Q6hrs while NPO * Goal Range: Low 110 mg/dL - High 140 mg/dL * TIGHTEN: Correction Factor: 12 mg/dL/unit * TIGHTEN: Nutritional / Prandial insulin per carb ratio of 1 unit per 4 grams CHO consumed PLAN FOR DISCHARGE: A1c acceptable, continue outpatient regimen.
[2019-06-26] MEDS: LISINOPRIL 20 MG TAB PO SCH (16:21)
--- NOTE | 2019-06-26 17:39 | Orthopedic Progress Note ---
Date of Service June 26, 2019 Assessment & Plan (1) Status post reverse arthroplasty of right shoulder: POD #1, Right reversed TSA Limited PT/ OT DVT proph- ASA D/C plans -Home w HEP As per medicine. Subjective POD #1, doing well. Pain controlled well. Denies SOB, CP, N/V. Wishes home w HEP on discharge. Physical Exam Physical Exam: Right shoulder dressings c/d/i, drain in place. Finger and elbow mobile. Sling in tact. N/V+. A&Ox3. Results & Data Vital Signs (Past 12 Hours) Vital Signs Temp Pulse Resp BP Pulse Ox 06/26/19 15:27 36.6 C 59 L 17 137/71 96 06/26/19 11:10 37.0 C 61 16 116/70 93 06/26/19 07:15 36.7 C 60 16 109/63 97
[2019-06-26] MEDS: ASPIRIN 81 MG ECTAB PO SCH (21:14)
[2019-06-26] MEDS: ROSUVASTATIN CALCIUM 20 MG TAB PO SCH (21:14)
[2019-06-26] MEDS: SENNA 8.6 MG TAB PO SCH (21:14)
[2019-06-26] MEDS: INSULIN DETEMIR FLEXPEN/FLEX TOUCH 100 UNITS/ML 3ML SC SCH (21:17)
[2019-06-27] MEDS: ACETAMINOPHEN 500 MG TAB PO SCH (05:17)
[2019-06-27 05:50] LABS: Basophils # (auto) 0.02 K/uL (0-0.2); Basophils % (auto) 0.2 %; Eosinophils # (auto) 0.08 K/uL (0-0.5); Eosinophils % (auto) 0.8 %; Hematocrit (blood only) 38.4 % (42-52); Hemoglobin 12.7 g/dL (14.0-18.0); Immature Granulocytes # (auto) 0.04 K/uL (0.00-0.02); Immature Granulocytes % (auto) 0.4 %; Lymphocytes # (auto) 1.55 K/uL (1.2-3.4); Mean Corpuscular Hemoglobin 30.7 pg (25-34); Mean Corpuscular Hgb Conc 33.1 g/dL (32-36); Mean Corpuscular Volume 92.8 fL (80-100); Mean Platelet Volume 9.5 fL (7.4-10.4); Monocytes # (auto) 1.48 K/uL (0.11-0.59); Monocytes % (auto) 15.3 %; Neutrophils % (auto) 67.3 %; Platelet Count 181 K/uL (130-400); RDW Coefficient of Variation 13.4 % (11.5-14.5); RDW Standard Deviation 45.4 fL (36.4-46.3); Red Blood Count 4.14 M/uL (4.7-6.1); White Blood Count 9.67 K/uL (4.8-10.8)
[2019-06-27 06:21] LABS: BUN Creatinine Ratio 13.7 (10-20); Calcium 8.2 mg/dl (8.5-10.1); Creatinine Clr Calc Pharmacy 62.3 ml/min; Est GFR (African American) 64.2; Est GFR (Non-African American) 55.4; Potassium 4.2 mmol/L (3.5-5.1)
--- NOTE | 2019-06-27 08:00 | Orthopedic Progress Note ---
Date of Service June 27, 2019 Assessment & Plan (1) Status post reverse arthroplasty of right shoulder: POD #2, Right reversed TSA Limited PT/ OT DVT proph- ASA D/C plans -Home w HEP today. As per medicine. Subjective POD #2, doing well. Pain controlled well. Denies SOB, CP, N/V. Wishes home w HEP on discharge. Physical Exam Physical Exam: Right shoulder dressings c/d/i. No drainage. Fingers mobile. Sling in tact. A&Ox3. Results & Data Vital Signs (Past 12 Hours) Vital Signs Temp Pulse Resp BP Pulse Ox 06/27/19 07:30 36.8 C 76 15 154/72 H 95 06/27/19 00:07 36.9 C 72 16 134/70 91
[2019-06-27] MEDS: MULTIVITAMIN TAB PO SCH (08:42)
[2019-06-27] MEDS: DOCUSATE SODIUM 100 MG CAP PO SCH (08:42)
[2019-06-27] MEDS: INSULIN ASPART 100 UNITS/ML 3 ML PEN SC SCH ×2 (08:43→12:55)
[2019-06-27] MEDS: OXYCODONE HCL IR 5 MG TAB (IMMEDIATE RELEASE) PO PRN (10:14)
== END 2019-06-27 13:32 | disposition home or self-care (01) | DRG 483 ==
LOC: ASU 07:41 → 3E 13:43

== ENCOUNTER 2020-04-28 08:16 | Inpatient (IN) ==
--- NOTE | 2020-04-05 15:36 | PAT Medication Instructions ---
Medication Instructions Date of Service April 05, 2020 Home Medications Levemir FlexTouch U-100 Insuln 18 unit SUBCUT QPM aspirin [Aspir-81] 81 mg PO HS insulin aspart U-100 [Novolog Flexpen U-100 Insulin] 6 - 12 unit SUBCUT TIDM metformin 1,000 mg PO BIDM amlodipine [Norvasc] 5 mg PO QPM atorvastatin [Lipitor] 10 mg PO HS glucosamine-chondroitin [Osteo Bi-Flex] 1 tab PO BID hydrochlorothiazide 12.5 mg PO QPM ibuprofen [Advil] 400 mg PO Q6H PRN ASK your surgeon for instructions ibuprofen [Advil] 400 mg PO Q6H PRN STOP taking 2 weeks before surgery glucosamine-chondroitin [Osteo Bi-Flex] 1 tab PO BID DO NOT take the morning of surgery insulin aspart U-100 [Novolog Flexpen U-100 Insulin] 6 - 12 unit SUBCUT TIDM metformin 1,000 mg PO BIDM Take evening before surgery Levemir FlexTouch U-100 Insuln 18 unit SUBCUT QPM aspirin [Aspir-81] 81 mg PO HS (unless otherwise instructed by surgeon) insulin aspart U-100 [Novolog Flexpen U-100 Insulin] 6 - 12 unit SUBCUT TIDM metformin 1,000 mg PO BIDM amlodipine [Norvasc] 5 mg PO QPM atorvastatin [Lipitor] 10 mg PO HS hydrochlorothiazide 12.5 mg PO QPM NOTHING TO EAT OR DRINK AFTER MIDNIGHT: Other Notes If you have any questions please call us at [phone] or [phone] or [phone] or [phone]
--- NOTE | 2020-04-06 10:45 | Anesthesiology Consultation ---
Date of Service April 06, 2020 Assessment & Plan (1) Encounter for pre-operative examination: COVID Status: As of 04/06 assessment, patient denies travel to endemic area, known exposure/sick contacts, or symptoms of COVID19. Patient instructed that they and their household members must follow strict social distancing guidelines, wear a mask in public and avoid travel for 14 days prior to surgery. Preoperative COVID19 testing to be completed prior to surgery per surgeon's arra ngements. Patient made aware to self-isolate as much as possible between COVID testing and surgery. BSG AM DOS Chart Review Chart Review: Acceptable Risk for Surgery and Patient seen in Pre Admission Testing Teaching & Discussion Instructed NPO after midnight before surgery, except medications with 15 cc of water. Medication instructions provided according to the PAT guidelines. History Surgery Operation Date: 04/28/20 12:50 Proposed Procedures p Left Reverse Total Shoulder Arthroplasty - Abhijit Cabral MD Height/Weight Height: 6 ft Weight: 99.5 kg Allergies Allergy/AdvReac Type Severity Reaction Status Date / Time erythromycin base AdvReac Intermediate N/V, Verified 03/30/20 11:17 hematuria shellfish derived AdvReac Unknown severe Verified 03/30/20 11:17 nausea Medications Home Medications Medication Instructions Recorded Confirmed Last Taken Levemir FlexTouch U-100 Insuln 18 unit SUBCUT QPM 06/10/18 03/30/20 06/24/19 20:00 aspirin [Aspir-81] 81 mg PO HS 06/10/18 03/30/20 06/20/18 23:30 insulin aspart U-100 [Novolog 6 - 12 unit SUBCUT TIDM 06/10/18 03/30/20 06/24/19 18:00 Flexpen U-100 Insulin] metformin 1,000 mg PO BIDM 06/10/18 03/30/20 06/24/19 18:00 amlodipine [Norvasc] 5 mg PO QPM 03/30/20 03/30/20 Unknown atorvastatin [Lipitor] 10 mg PO HS 03/30/20 03/30/20 Unknown glucosamine-chondroitin [Osteo 1 tab PO BID 03/30/20 03/30/20 Unknown Bi-Flex] hydrochlorothiazide 12.5 mg PO QPM 03/30/20 03/30/20 Unknown ibuprofen [Advil] 400 mg PO Q6H PRN 03/30/20 03/30/20 Unknown Past Medical History Medical History Degenerative disc disease cervical/lumbar with UE/LE radiculopathy Diabetes mellitus, type 2 IDDM Hiatal hernia Hx of skin cancer, basal cell Hyperlipidemia Hypertension F/U DR RUEDA Neuropathy of both feet results in difficulty with ambulation Osteoarthritis Sleep apnea did not tolerate CPAP- NO DEVICE Exercise / Class Metabolic Activity II 4-5 Yardwork/Stairs/Walk up hill Past Family History Family History Mother Family history of diabetes mellitus Grandfather (Paternal) Family history of diabetes mellitus Grandmother (Maternal) Family history of diabetes mellitus Past Surgical History Surgical History History of bunionectomy RIGHT History of cardiac cath 02/[address] [facility]-NO STENTS, DONE FOR ABNORMAL ECHO History of eye surgery b/l UE eyelid "lift" + eye fat pad excision History of lumbar fusion Hardware removal, L3-L4 decompression/fusion: 06/21/18: Grade 1 view, MAC#3, ETT 8.0 at [facility] History of tonsillectomy and adenoidectomy + UVULA REMOVED Hx of bilateral cataract extraction Hx of colonoscopy Hx of LASIK BILATERAL EYES Hx of nasal septoplasty Hx of rotator cuff surgery 3 L/1 R Hx of thumb surgery X2 - STEEL SANCHEZ IMPLANTED Hx of total hip arthroplasty RIGHT Past Anesthesia History No Hx of Anesthesia Complications and No Family Hx of Anesthesia Complications History of PONV No Hx of PONV and No Hx of Motion Sickness Social History Smoking Status: Never smoker Do You Dip or Chew Tobacco: No Hx Alcohol Use: Yes Alcohol type: beer and hard liquor alcohol intake frequency: a few times a month Hx Substance Use: No substance use type: does not use Review of Systems Pt denies any recent chest pain, shortness of breath, palpitations, cough, fever, URI, or uncontrolled acid reflux. Physical Exam Vital Signs BP: 133/76 P: 53bpm SPO2: 98% RA T: 98.1 F R: 16 ENMT Mouth: + dental restorations (post for unfinished implant lower L molar); no chipped teeth and no loose teeth Thyromental Distance: > or= 3.5 Finger Breadths Mallampati Class: I Uvula and tonsils surgically absent Neck normal visual inspection; neck extension not limited Respiratory normal respiratory effort Auscultation: lungs clear to auscultation bilaterally Cardiovascular Rate/Rhythm: regular rate and regular rhythm Heart Sounds: no murmur Extremities: no edema Testing Laboratory Results 04/06/20 07:39 04/06/20 10:59 PT 10.0 Seconds (9.0-12.0) 04/06/20 07:39 INR 0.9 (0.9-1.1) 04/06/20 07:39 APTT 26.8 Seconds (21.0-31.0) 04/06/20 07:39 Hemoglobin A1c 7.1 % (4.5-5.6) H 04/06/20 07:39 Urine Color Yellow 04/06/20 10:59 Urine Appearance Clear (Clear) 04/06/20 10:59 Urine pH 5.0 (4.5-7.5) 04/06/20 10:59 Ur Specific [place] >= 1.030 (1.000-1.030) 04/06/20 10:59 Urine Protein Negative (Negative) 04/06/20 10:59 Urine Glucose (UA) Trace (Negative) H 04/06/20 10:59 Urine Ketones Negative (Negative) 04/06/20 10:59 Urine Nitrite Negative (Negative) 04/06/20 10:59 Ur Leukocyte Esterase Negative (Negative) 04/06/20 10:59 Blood Type A Positive 04/06/20 10:59 Antibody Screen NEGATIVE 04/06/20 10:59 Electrocardiogram Date: 05/30/19 Findings: + SB @ (52bpm) Left axis deviation. Nonspecific intraventricular conduction delay. LVH with QRS widening. No significant change from 07/10/2012. Chest X-Ray Date: 05/30/19 FINDINGS: PA and lateral chest radiographs are compared to study dated 06/13/2018. The heart is mildly enlarged noting atherosclerotic calcification of the thoracic aorta. Chronic interstitial thickening is similar to previous. No airspace consolidation or pleural effusion is identified. There is no pneumothorax. The skeletal structures are osteopenic. The bony thorax appears intact. IMPRESSION: Mild cardiomegaly with no active disease in the chest. Stress Test Date: 06/11/18 Type: exercise Resting EF: 55% The rest and stress images are not well matched and the study is technically difficult, despite the use of contrast; there appears to be basal and mid anterolateral hypokinesis with exercise. Exercise stress echocardiogram reveals basal and mid anterolateral ischemia. Patient has good functional status for age and exercise at a maximum workload of 10 METS. Pt had subsequent cath as below. Baseline echo shows normal resting wall motion, normal LV cavity size and wall thickness, preserved LV systolic function. Cardiac Catheterization Date: 02/12/19 Noncritical epicardial coronary artery disease with calcification of the left main/left anterior descending/left circumflex. Plan: Medical management. The patient is already on aspirin and high intensity statins. Outpatient follow-up.
[2020-04-06 12:06] LABS: Basophils # (auto) 0.07 K/uL (0-0.2); Basophils % (auto) 0.9 %; Eosinophils # (auto) 0.32 K/uL (0-0.5); Eosinophils % (auto) 4.2 %; Hemoglobin 14.8 g/dL (14.0-18.0); Immature Granulocytes # (auto) 0.01 K/uL (0.00-0.02); Immature Granulocytes % (auto) 0.1 %; Lymphocytes # (auto) 2.75 K/uL (1.2-3.4); Lymphocytes % (auto) 36.4 %; Mean Corpuscular Hemoglobin 30.6 pg (25-34); Mean Corpuscular Hgb Conc 33.6 g/dL (32-36); Mean Corpuscular Volume 90.9 fL (80-100); Mean Platelet Volume 9.7 fL (7.4-10.4); Monocytes # (auto) 0.54 K/uL (0.11-0.59); Monocytes % (auto) 7.1 %; Neutrophils # (auto) 3.87 K/uL (1.4-6.5); Neutrophils % (auto) 51.3 %; Platelet Count 253 K/uL (130-400); RDW Coefficient of Variation 12.8 % (11.5-14.5); RDW Standard Deviation 42.6 fL (36.4-46.3); Red Blood Count 4.84 M/uL (4.7-6.1); White Blood Count 7.56 K/uL (4.8-10.8)
[2020-04-06 12:33] LABS: Appearance Urine Clear (Clear); Bilirubin Urine Negative (Negative); Blood Urine Negative (Negative); Color Urine Yellow; Glucose Urine UA Trace (Negative); Ketones Urine Negative (Negative); Leukocyte Esterase Urine Negative (Negative); Nitrite Urine Negative (Negative); Protein Urine Negative (Negative); Specific Gravity Urine >= 1.030 (1.000-1.030); Urobilinogen Urine Negative (Negative)
[2020-04-06 12:39] LABS: INR 0.9 (0.9-1.1); Partial Thromboplastin Time 26.8 Seconds (21.0-31.0)
[2020-04-06 13:32] LABS: Estimated Average Glucose 157 mg/dl; Hemoglobin A1C 7.1 % (4.5-5.6)
[2020-04-06 13:54] LABS: Albumin Level 3.5 gm/dl (3.4-5.0); BUN Creatinine Ratio 13.8 (10-20); Calcium 9.5 mg/dl (8.5-10.1); Creatinine Clr Calc Pharmacy 61.4 ml/min; Est GFR (African American) 64.4; Est GFR (Non-African American) 55.6; Potassium 4.4 mmol/L (3.5-5.1)
--- NOTE | 2020-04-27 19:16 | History and Physical Report ---
DATE OF ADMISSION: 04/28/2020 CHIEF COMPLAINT: Chronic left shoulder pain and weakness. HISTORY OF PRESENT ILLNESS: This is a 75-year-old male patient of Dr. Cabral'mulu complaining of chronic left shoulder pain and weakness, longstanding, now progressively getting worse. The patient has failed conservative treatment including 3 rotator cuff repairs in the past, intra-articular injections and physical therapy. The patient has been diagnosed with severe rotator cuff arthropathy in the left shoulder and wished to proceed with a left reverse total shoulder arthroplasty. PAST MEDICAL HISTORY: Hypertension, sleep apnea with the use of CPAP, peripheral neuropathy, diabetes mellitus with insulin, rheumatoid arthritis, spine problems, neck problems, upper back problems, sciatica, hiatal hernia, obesity, skin cancer. SOCIAL HISTORY: Nonsmoker, nondrinker. FAMILY HISTORY: Noncontributory. REVIEW OF SYSTEMS: Chronic left shoulder pain and weakness. Otherwise, denies any shortness of breath, chest pain, nausea, vomiting or any other joint complaints. MEDICATIONS: 1. Glucophage 1000 mg twice daily. 2. Aspirin 81 mg daily. 3. Crestor 20 mg daily. 4. NovoLog 100 units subQ as needed. 5. Levemir as needed per insulin sliding scale. 6. Amlodipine 5 mg daily. 7. Hydrochlorothiazide 25 mg daily. ALLERGIES: ERYTHROMYCIN, ROCEPHIN, SHELLFISH. PHYSICAL EXAMINATION: GENERAL: A well-developed, well-nourished 75-year-old male in no acute distress. He is alert and oriented x3 and pleasant. HEENT: Normocephalic, atraumatic. Extraocular motions are intact. Pupils are equal and reactive to light. HEART: Regular rate and rhythm, no murmurs. LUNGS: Clear. ABDOMEN: Soft, nontender, bowel sounds present. EXTREMITIES: Left upper extremity, he has full range of motion of his shoulder with pain. He has 3+/4 strength globally. Neurologically and neurovascularly, he is intact in his left upper extremity. DIAGNOSES: Left shoulder rotator cuff arthropathy, hypertension, sleep apnea with CPAP, peripheral neuropathy, diabetes with insulin, rheumatoid arthritis, spine problems, neck problems, upper back problems, sciatica, hiatal hernia, obesity, history of skin cancer. PLAN: The patient was advised of his diagnosis. Indications, risks, benefits, postop course have all been reviewed. The patient wishes to proceed with a left reverse total shoulder arthroplasty. Necessary consent forms, preoperative testing and clearances will be obtained.
[~2020-04-28 08:16] MED LIST changes: -CEFAZOLIN 2000MG 2,000 MG/15 ML SYR IV SCH; +DEXAMETHASONE SOD INJ 4 MG/ML VIAL ONE; +ceFAZolin 2000MG 2,000 MG/15 ML SYR IV SCH
[2020-04-28] MEDS ORDERED: fentaNYL citrate 100 MCG/2 ML VIAL ONE (08:57)
[2020-04-28] MEDS ORDERED: MIDAZOLAM HCL 1 MG/ML 2ML VIAL ONE (08:57)
--- NOTE | 2020-04-28 09:06 | History & Physical Bridge Note ---
Date of Service April 28, 2020 History & Physical Bridge Note I have examined the patient, reviewed the History & Physical and in the interval since the performance of the History & Physical I have noted the following changes of clinical significance: no changes noted
[2020-04-28] MEDS ORDERED: LIDOCAINE 2% JELLY 5 ML TUBE ONE (09:27)
[2020-04-28] MEDS ORDERED: BACITRACIN INJ 50,000 UNIT VIAL ONE (09:34)
[2020-04-28] MEDS ORDERED: METOCLOPRAMIDE HCL INJ 5 MG/ML 2 ML VIAL IV PRN (10:08)
[2020-04-28] MEDS ORDERED: fentaNYL citrate 100 MCG/2 ML VIAL IV PRN (10:08)
[2020-04-28] MEDS ORDERED: ePHEDrine sulfate 50 MG/ML AMP IV PRN (10:08)
[2020-04-28] MEDS ORDERED: PROMETHAZINE HCL 12.5 MG in SODIUM CHLORIDE 0.9% 50 ML IV PRN (10:08)
[2020-04-28] MEDS ORDERED: ATROPINE SULFATE 0.1 MG/ML 10ML SYR IV PRN (10:08)
[2020-04-28] MEDS ORDERED: HYDROmorphone INJ 2 MG/ML SYR/VIAL IV PRN (10:08)
[2020-04-28] MEDS ORDERED: ONDANSETRON INJ 2 MG/ML 2 ML VIAL IV PRN ×2 (10:08→14:25)
[2020-04-28] MEDS ORDERED: ePHEDrine sulfate 50 MG/ML SYR ONE (11:20)
[2020-04-28] MEDS ORDERED: ROCURONIUM BROMIDE 10 MG/ML 5 ML VIAL IV ONE ×6 (12:02)
[2020-04-28] MEDS ORDERED: PROPOFOL IV EMULSION 10 MG/ML 20 ML VIAL IV ONE (12:02)
[2020-04-28] MEDS ORDERED: LIDOCAINE 2% 20 MG/ML 5 ML SYR IV ONE (12:02)
[2020-04-28] MEDS ORDERED: GLYCOPYRROLATE 0.2 MG/ML VIAL ONE ×2 (12:03)
[2020-04-28] MEDS ORDERED: NEOSTIGMINE METHYLSULFATE 5 MG/5 ML SYR ONE (12:03)
[2020-04-28] MEDS ORDERED: ONDANSETRON INJ 2 MG/ML 2 ML VIAL ONE (13:18)
--- NOTE | 2020-04-28 13:29 | Operative Report ---
Post Operative Report Pre & Post Diagnosis Operation Date: 04/28/20 10:20 Pre-Op Diagnosis: Rotator cuff arthropathy with end-stage glenohumeral osteoarthritis irreparable rotator cuff tear, old biceps tendon rupture with retraction, failed rotator cuff repair left Shoulder Post-Op Diagnosis: Same I identified the patient and participated in the time-out.: Yes Procedure Operation Date: 04/28/20 10:20 Actual Procedures Left Reverse Total Shoulder Arthroplasty - Abhijit Cabral MD Surgeon Abhijit Cabral MD Wet Machine Tender CLEMENT Gomes Estimated Blood Loss 80 Findings Consistent with Post-Op Diagnosis Specimens Humeral head Drains 2 Hemovac Anesthesia Type General Regional Complications none Disposition Accompanied Patient To Recovery: No Disposition: Recovery Room Indications 75-year-old male with history of shoulder rotator cuff type surgery years ago now with large retracted irreparable rotator cuff tear with rotator cuff arthropathy advanced DJD glenohumeral joint chronic biceps rupture. Description of Procedure The patient was taken to the operating room and anesthetized under regional block and general anesthetic. The patient was positioned on the operating table in a 30 beachchair position with a towel roll under the medial border of the left scapula. The arm was draped free to be able to manipulate the shoulder as needed. The left upper extremity was prepped and draped in usual sterile fashion. Exam demonstrated subacromial crepitation old saber type longitudinal scar anterior lateral. Range of motion 160 degrees flexion 110 degrees abduction 80 degrees external rotation. An anterior deltopectoral approach was performed. A longitudinal incision was made in the deltopectoral interval. The skin was incised sharply. Subcutaneous flaps were elevated off the fascia. The cephalic vein was dissected out and retracted lateral with the deltoid. The clavipectoral fascia was divided at the lateral margin of the conjoined tendon and extended up to the CA ligament. The following findings were noted there was a chronic biceps rupture with intact subscapularis tendon torn supraspinatus with retraction partial retention of some of the infraspinatus and the teres minor was intact. Superior humeral head osteoarthritic changes and osteophytes noted. The upper centimeter of the pectoralis was released for inferior exposure. The proximal biceps was resected. The subscapularis tendon was taken down off the lesser tuberosity using a subperiosteal dissection. A #1 Vicryl traction suture was placed into the free end of the subscapularis tendon and capsule. The subscapular muscle fibers were split longitudinally at the level of the circumflex vessels. The circumflex vessels were identified and tied off with silk ties and divided laterally. A Kitner elevator was used to free up the inferior fibers of the subscapularis off of the capsule. The axillary nerve was identified with a tug test and protected with a blunt Jo retractor between the nerve and the capsule. The subscapularis tendon was then taken down off of the lesser tuberosity subperiosteally and subperiosteal dissection was performed along the neck of the humerus as the arm is gradually externally rotated exposing the humeral head. The humeral head findings demonstrated grade 3 arthr itic wear with superior articular wear with osteophytes posterior inferior lateral and superior. retractors were readjusted and the inferior and posterior osteophytes were all resected using an artist chisel and a rongeur. A Phillips elevator was used to assist in releasing the capsule of the neck of the humerus. The capsule was divided with Leung scissors down to the glenoid released off the anterior glenoid and the rotator interval was released to meet the capsular release and a 360 release of the subscapularis was accomplished. A Fukuda retractor was placed into the joint retracting the humeral head posterior. Glenoid findings demonstrated arthritic wear in the glenoid but maintained articular surface but there is a large osteophyte anterior and extending inferior. The labrum was resected. an anterior-inferior and posterior inferior capsular release were performed with electrocautery and a Phillips elevator on bone with the axillary nerve protected inferiorly by the retractor. The inferior osteophyte was resected with both an artist chisel and a rongeur. Attention was then taken to the humeral preparation. The cutting guide was placed into the humeral head. It was positioned at 20 of retroversion. Oscillating saw was used to resect the humeral head giving the cut above the level of the posterior rotator cuff insertion site. The humerus was then prepared for the stem. I used the ascend flex stem from [employer]. The sizing broaches were used followed by trial broaches up to a size 5B long which had the appropriate fit and fill. The appropriate sized cut protector was placed. The humerus was then retracted posterior to the glenoid. The glenoid was sized for a 29 baseplate. The guide for the baseplate was positioned in a 10 inferior tilt and the central drill hole was made. The reamer for the 29 baseplate was used. The central drill was widened for the peg. The 28 hydroxyapatite-coated 29 aequalis baseplate was impacted into position. The base plate was transfixed with superior and inferior locking screws and anterior and posterior compression screws with stable fixation. The fan reamer was used for the 42 millimeter symmetrical glenoid sphere. After irrigation the 42 mm outer diameter 29 inner diameter standard symmetrical glenoid sphere was impacted onto the baseplate and the screw was tightened. Attention was taken back to the humerus. The cut protector was removed and the plus or high offset humeral tray trial was assembled to the trial stem rotated appropriately to get bony coverage and then screwed in position. A trial reduction was performed. A +6 trial insert demonstrated good stability and no shuck. The trials were removed. 3 drill holes are made into the harder bone in the bicipital groove area and 3 #5 FiberWire sutures were placed transosseously. The canal was irrigated with antibiotic solution with bacitracin. The final component was assembled. The final component was 5B long stem plus or high offset humeral tray with a +6 polyethylene reversed insert for 42 head. This was then impacted into the humerus with a tight press-fit. It was reduced to the glenoid sphere. Stability was verified. Subscapularis was repaired with the #5 FiberWire sutures using Juan-Andres suture technique. Lateral row soft tissue repair was performed with #2 FiberWire [id number] sutures. The pectoralis was repaired with #2 FiberWire [id number] sutures. The arm was taken through a range of motion which demonstrated 150 degrees forward elevation 100 degrees abduction and 70 degrees external rotation without any tension on repair. The implant was stable through the range of motion tested. The wound was copiously irrigated. 2 Hemovac drains were placed. The deltopectoral interval was closed with [id number] #1 Vicryl sutures. The subcutaneous tissues were closed with 2-0 Vicryl sutures. The skin was closed with gina. Sterile dressings were applied and a shoulder immobilizer. CLEMENT Gomes my physician assistant softball coach assisted in the procedure to the entire procedure including patient positioning arm positioning prepping and draping soft tissue retraction instrument management suture management and performed the subcutaneous and skin closure and will participate in the postoperative care of the patient. I attest to the content of the Intraoperative Record and any orders documented therein. Any exceptions are noted below.
--- NOTE | 2020-04-28 13:57 | XRay Report ---
TWO VIEWS LEFT SHOULDER CLINICAL HISTORY: Postoperative examination. FINDINGS: 2 portable views of the left shoulder are obtained. A left shoulder arthroplasty is in near anatomic alignment. Mild productive change is noted at the acromioclavicular joint. No acute fractur e is seen. There are expected postoperative changes around the left shoulder including skin clips, a surgical drain, soft tissue edema, and subcutaneous gas. Atelectasis is noted at the left lung base. IMPRESSION: Expected postoperative changes status post left shoulder arthroplasty. No acute fracture is seen. ACT 112: Negative or not required by law. Electronically signed by: Alejandro Mercedes M.D. 04/28/2020 1:55 PM
--- NOTE | 2020-04-28 14:10 | Anesthesiology Progress Note ---
Date of Service April 28, 2020 Anesthesia Post Procedure Vital Signs Vital Signs: Temp Pulse Pulse Resp BP Pulse Ox 04/28/20 13:59 54 L 16 144/74 H 100 04/28/20 13:50 57 L 16 135/91 100 04/28/20 13:40 55 L 16 131/90 100 04/28/20 13:31 36.3 C L 64 16 158/78 H 100 04/28/20 09:03 36.7 C 49 L 20 142/79 H 98 Transfer of Care Handoff Completed per policy Notes Mental Status: alert / awake / arousable and participated in evaluation Patient Amnestic to Procedure: Yes Nausea / Vomiting: adequately controlled Pain: adequately controlled Airway Patency, RR, SpO2: stable & adequate BP & HR: stable & adequate Hydration State: stable & adequate Anesthetic Complications: no major complications apparent
[2020-04-28] MEDS ORDERED: diphenhydrAMINE Capsule 25 MG CAP PO PRN (14:25)
[2020-04-28] MEDS ORDERED: HYDROmorphone INJ 0.5 MG/0.5 ML SYR IV PRN (14:25)
[2020-04-28] MEDS ORDERED: MAGNESIUM HYDROXIDE SUSP 30 ML UDC PO PRN (14:25)
[2020-04-28] MEDS ORDERED: NALOXONE HCL 0.4 MG/1 ML VIAL/CARP IV PRN (14:25)
[2020-04-28] MEDS ORDERED: bisacodyL 10 MG SUPP PR PRN (14:25)
[2020-04-28] MEDS ORDERED: oxyCODONE HCL IR 5 MG TAB (IMMEDIATE RELEASE) PO PRN (14:25)
[2020-04-28] MEDS ORDERED: PHARMACY GLYCEMIC MGMT CONSULT PRN (14:40)
--- NOTE | 2020-04-28 14:53 | Pharmacy Report ---
Glycemic Control Consultation - Date of Service April 28, 2020 - Scope Scope: Glycemic Pharmacist consulted for glycemic control and to write orders per [facility] inpatient glycemic control protocol. - Objective Weight: 97.931 kg Accuchecks BSG (last 24hrs): 04/28/20 04/28/20 08:49 13:34 POC Glucose 116 H 145 H HbA1c: Hemoglobin A1c 7.1 % (4.5-5.6) H 04/06/20 07:39 - Recent Pertinent Medications Outpatient Anti-diabetic Regimen: * Levemir 18 units SQ PM + Novolog 6-12 units SQ TIDM + Metformin 1000 mg PO BI DM * A1c = 7.1% (04/06/2020) Risk Factors for Insulin Resistance: * Steroids: * Pre-operative Dexamethasone * Recent Surgery: * POD #0 * Diet: * T2DM - Assessment & Plan Assessment & Plan: ASSESSMENT: * 75 yo M admitted s/p left total shoulder arthroplasty. Pharmacy is consulted for inpatient glycemic management. Patient did receive a pre-operative dose of Dexamethasone 8 mg. No further steroids are ordered. Excellent outpatient control on basal-bolus insulin plus metformin at home based on most recent A1c of 7.1%. * Pre-operative BSG was 116 mg/dL. Post-operative BSG was 145 mg/dL. Patient did take 18 units of Levemir last evening prior to surgery. * Given pre-operative steroids, will increase home dose of Levemir by ~10% this evening. Will start patient on Novolog based on weight and stress of 3. * Suspect patient's insulin requirements will decrease over the next 24 hours as steroids wear off. PLAN FOR INPATIENT GLYCEMIC CONTROL: * Holding outpatient oral diabetes medications * Basal insulin * Levemir 20 units SQ HS * Bolus insulin * NovoLog per scale ACHS or Q6hrs while NPO * Goal Range: Low 110 mg/dL - High 140 mg/dL * Correction Factor: 15 mg/dL/unit * Nutritional / Prandial insulin per carb ratio of 1 unit per 5 grams CHO consumed * Please note that the plan above was derived based on current level of insulin resistance and hospital stress. These recommendations are appropriate for inpatient admission only. Plan of care upon discharge will need to be reassessed to avoid potential outpatient hypo/hyperglycemia. Thank you.
[2020-04-28] MEDS ORDERED: GLUCOSE 10 TABS/TUBE PO PRN (15:00)
[2020-04-28] MEDS ORDERED: GLUCAGON FOR INJ 1 MG VIAL IM PRN (15:00)
[2020-04-28] MEDS ORDERED: CARBOHYDRATES FOR HYPOGLYCEMIA PO PRN (15:00)
[2020-04-28] MEDS ORDERED: GLUCOSE 40% GEL 15 GM TUBE PO PRN (15:00)
[2020-04-28] MEDS ORDERED: DEXTROSE 50% 50 ML SYRINGE IV PRN (15:00)
[2020-04-28] MEDS: ACETAMINOPHEN 500 MG TAB PO SCH ×2 (15:40→21:14)
[2020-04-28] MEDS: SODIUM CHLORIDE 0.9% 1000ML 1,000 ML IV SCH (15:42)
[2020-04-28] MEDS: ceFAZolin 2000MG 2,000 MG/15 ML SYR IV SCH (17:25)
[2020-04-28] MEDS: INSULIN ASPART 100 UNITS/ML 3 ML PEN SC SCH ×2 (17:26→20:48)
[2020-04-28] MEDS ORDERED: COUGH DROP (SUGAR FREE) LOZ 24 LOZ/1 BOX BUCCAL ONE (20:27)
[2020-04-28] MEDS: DOCUSATE SODIUM 100 MG CAP PO SCH (20:32)
[2020-04-28] MEDS ORDERED: hydroCHLOROthiazide 25 MG TAB PO SCH (21:00)
[2020-04-28] MEDS ORDERED: SENNA 8.6 MG TAB PO SCH (21:00)
[2020-04-28] MEDS ORDERED: ASPIRIN 81 MG ECTAB PO SCH (21:00)
[2020-04-28] MEDS ORDERED: amLODIPine BESYLATE 5 MG TAB PO SCH (21:00)
[2020-04-28] MEDS ORDERED: INSULIN DETEMIR FLEXPEN/FLEX TOUCH 100 UNITS/ML 3ML SC SCH (21:00)
[2020-04-28] MEDS ORDERED: ATORVASTATIN 10 MG TAB PO SCH (21:00)
--- NOTE | 2020-04-28 21:57 | Hospitalist Consultation ---
Date of Consultation April 28, 2020 Assessment & Plan (1) Dyslipidemia: Status post reverse arthroplasty of left shoulder: Surgery performed earlier today by Dr. Cbaral, well-tolerated with no complications identified. Pain is well controlled at present. -Continue pain, nausea and bowel regimens per primary team -Dilaudid, oxycodone, Tylenol as needed -Zofran and Benadryl as needed -Senna, docusate and magnesium hydroxide as needed Present on Admission?: Yes (2) Diabetes mellitus: Hemoglobin A1c on 04/06/2020 = 7.1. A glycemic management consult has been put in to pharmacy by the primary team -Patient on Levemir and NovoLog sliding scale with correction factor of 25 and carb ratio of 7 -Goal blood sugar 110-140 while inpatient -Continue per pharmacy -Metformin is being held while inpatient. It can be resumed upon discharge -Continue aspirin 81 mg p.o. daily Present on Admission?: Yes (3) HTN (hypertension): Blood pressure currently well controlled Continue home meds Present on Admission?: Yes (4) Dyslipidemia: Chronic. Stable. Continue atorvastatin Thank you very much for this consult. Please do not hesitate to contact us with any additional questions or concerns. The Hospitalist service will sign off at this time. (2) Sleep apnea: (3) HTN (hypertension): (4) Diabetes mellitus: History of Present Illness Reason for Consultation: medical management Attending Physician: Abhijit Cabral MD History of Present Illness Mr. Brandt Olivarez is a pleasant 75-year-old male with history of type 2 diabetes on insulin therapy, hypertension, hyperlipidemia status left shoulder repair, Rotator cuff arthropathy with end-stage glenohumeral osteoarthritis irreparable rotator cuff tear, old biceps tendon rupture with retraction, failed rotator cuff repair left Shoulder. Procedure was well- tolerated, blood loss was minimal. Patient is back in his room sitting upright in bed, no acute complaints, left arm is in sling, Hemovac drain in place. Denies pain/nausea/vomiting. No additional complaints at this time Allergies Allergy/AdvReac Type Severity Reaction Status Date / Time erythromycin base AdvReac Intermediate N/V, Verified 04/28/20 08:58 hematuria shellfish derived AdvReac Unknown severe Verified 04/28/20 08:58 nausea Home Medications Home Medications Medication Instructions Recorded Confirmed Type Levemir FlexTouch U-100 Insuln 18 unit SUBCUT QPM 06/10/18 04/28/20 History aspirin [Aspir-81] 81 mg PO HS 06/10/18 04/28/20 History insulin aspart U-100 [Novolog 6 - 12 unit SUBCUT TIDM 06/10/18 04/28/20 History Flexpen U-100 Insulin] metformin 1,000 mg PO BIDM 06/10/18 04/28/20 History amlodipine [Norvasc] 5 mg PO QPM 03/30/20 04/28/20 History atorvastatin [Lipitor] 10 mg PO HS 03/30/20 04/28/20 History glucosamine-chondroitin [Osteo 1 tab PO BID 03/30/20 04/28/20 History Bi-Flex] hydrochlorothiazide 12.5 mg PO QPM 03/30/20 04/28/20 History ibuprofen [Advil] 400 mg PO Q6H PRN 03/30/20 04/28/20 History Patient History Medical History Degenerative disc disease cervical/lumbar with UE/LE radiculopathy Diabetes mellitus, type 2 IDDM Hiatal hernia Hx of skin cancer, basal cell Hyperlipidemia Hypertension F/U DR RUEDA Neuropathy of both feet results in difficulty with ambulation Osteoarthritis Sleep apnea did not tolerate CPAP- NO DEVICE Surgical History History of bunionectomy RIGHT History of cardiac cath 02/2019 [facility]-NO STENTS, DONE FOR ABNORMAL ECHO History of eye surgery b/l UE eyelid "lift" + eye fat pad excision History of lumbar fusion Hardware removal, L3-L4 decompression/fusion: 06/21/18: Grade 1 view, MAC#3, ETT 8.0 at [facility] History of tonsillectomy and adenoidectomy + UVULA REMOVED Hx of bilateral cataract extraction Hx of colonoscopy Hx of LASIK BILATERAL EYES Hx of nasal septoplasty Hx of rotator cuff surgery 3 L/1 R Hx of thumb surgery X2 - STEEL SANCHEZ IMPLANTED Hx of total hip arthroplasty RIGHT Family History Mother Family history of diabetes mellitus Grandfather (Paternal) Family history of diabetes mellitus Grandmother (Maternal) Family history of diabetes mellitus Social History Smoking Status: Never smoker Second Hand Exposure: Yes (MOTHER SMOKED); Do You Dip or Chew Tobacco: No; Hx Alcohol Use: Yes Alcohol type: beer and hard liquor Hx Substance Use: No Preferred Language: Pakistani Communication Ability: Effective Administrative Project Coordinator Required: No Beliefs That Will Affect Care: None marital status: Current Living Situation: Spouse Other Information That Helps Us Care for You: No Feels Safe at Home: Yes Safety Concerns: Feels Safe At This Time Review of Systems Review of Systems: All systems reviewed & are unremarkable except as noted in HPI & below Physical Exam Physical Exam: General: Pleasant male patient resting comfortably in bed, appears younger than stated age, NAD, non-toxic in appearance, AA&O x 4 Skin: warm, dry, no rashes or lesions HEENT: NC/AT, PERRL, EOMI, anicteric sclera, conjunctiva without injection, external ear normal to inspection and nontender, nares patent, moist mucus membranes, dentition intact, no oropharyngeal lesions, neck supple, trachea midline, no LAD, no thyromegaly, no JVD Heart: +S1/S2, regular, no m/r/g Lungs: equal air entry bilaterally, no rales/rhonchi/wheezes Abd: +BS, soft, NT/ND, no masses/organomegaly/ascites Ext: warm, 2+ pulses in UE/LE bilaterally, no clubbing/cyanosis or edema, SCDs in place on bilateral lower extremities, left upper extremity immobilized in sling, Hemovac drain in place with bloody output Neuro: nonfocal, patient AA&O x 4, speech intact, no facial droop, moving all extremities on command with equal strength 5/5 Results & Data Results & Data ([facility]) Vital Signs (Past 12 Hours) Vital Signs Temp Pulse Pulse Resp BP Pulse Ox 04/28/20 19:11 36.8 C 65 17 147/73 H 95 04/28/20 17:34 36.4 C L 85 18 144/84 H 97 04/28/20 16:24 36.4 C L 75 20 160/82 H 97 04/28/20 15:25 36.4 C L 60 15 151/77 H 100 04/28/20 15:07 51 L 15 162/83 H 100 04/28/20 14:25 36.3 C L 63 16 146/81 H 100 04/28/20 14:10 36.4 C L 54 L 16 138/69 99 04/28/20 14:00 54 L 16 144/74 H 100 04/28/20 13:50 57 L 16 135/91 100 04/28/20 13:40 55 L 16 131/90 100 04/28/20 13:31 36.3 C L 64 16 158/78 H 100 PG Care Time/CCT Total # of Minutes Spent Total Time Spent with Patient: Total time spent is greater than 50% in coordination of care (as documented) at patient's floor/unit and/or counseling patient: Coding Level of Care Code 94833 Inpt Consult Level 4 Diagnoses Dyslipidemia E78.5 Sleep apnea G47.30 HTN (hypertension) I10 Hypertension type: essential hypertension Diabetes mellitus E11.9; Z79.4 Diabetes mellitus type: type 2 Diabetes mellitus group home insulin use: with oil heaterman use Diabetes mellitus complication status: without complication (1) HTN (hypertension) Hypertension type: essential hypertension Qualified Code(s): I10 - Essential (primary) hypertension (2) Diabetes mellitus Diabetes mellitus type: type 2 Diabetes mellitus oil heaterman insulin use: with oil heaterman use Diabetes mellitus complication status: without complication Qualified Code(s): E11.9 - Type 2 diabetes mellitus without complications; Z79.4 - penitentiary (current) use of insulin
[2020-04-29] MEDS: ceFAZolin 2000MG 2,000 MG/15 ML SYR IV SCH (01:26)
[2020-04-29] MEDS: SODIUM CHLORIDE 0.9% 1000ML 1,000 ML IV SCH (01:32)
[2020-04-29] MEDS: ACETAMINOPHEN 500 MG TAB PO SCH ×2 (05:13→13:47)
[2020-04-29 06:20] LABS: Basophils # (auto) 0.02 K/uL (0-0.2); Basophils % (auto) 0.2 %; Eosinophils # (auto) 0.02 K/uL (0-0.5); Eosinophils % (auto) 0.2 %; Hematocrit (blood only) 40.2 % (42-52); Hemoglobin 12.9 g/dL (14.0-18.0); Immature Granulocytes # (auto) 0.02 K/uL (0.00-0.02); Immature Granulocytes % (auto) 0.2 %; Lymphocytes # (auto) 2.51 K/uL (1.2-3.4); Lymphocytes % (auto) 24.3 %; Mean Corpuscular Hemoglobin 29.4 pg (25-34); Mean Corpuscular Hgb Conc 32.1 g/dL (32-36); Mean Corpuscular Volume 91.6 fL (80-100); Mean Platelet Volume 9.6 fL (7.4-10.4); Monocytes # (auto) 1.21 K/uL (0.11-0.59); Monocytes % (auto) 11.7 %; Neutrophils # (auto) 6.57 K/uL (1.4-6.5); Neutrophils % (auto) 63.4 %; Platelet Count 243 K/uL (130-400); RDW Coefficient of Variation 13.2 % (11.5-14.5); Red Blood Count 4.39 M/uL (4.7-6.1); White Blood Count 10.35 K/uL (4.8-10.8)
[2020-04-29 06:57] LABS: BUN Creatinine Ratio 15.9 (10-20); Calcium 8.4 mg/dl (8.5-10.1); Creatinine Clr Calc Pharmacy 64.6 ml/min; Est GFR (African American) 69.1; Est GFR (Non-African American) 59.6; Potassium 3.6 mmol/L (3.5-5.1)
--- NOTE | 2020-04-29 08:20 | Orthopedic Progress Note ---
Date of Service April 29, 2020 Assessment & Plan (1) Osteoarthritis of left shoulder: Postop day 1 status post left reverse total shoulder arthroplasty PT/OT protocols. Nonweightbearing left upper extremity. DVT prophylaxis-aspirin p.o. daily, SCDs Pain management as written. DC planning-planning for discharge to home. No formal PT for approximately 6 weeks. Admission and Anticipated Discharge Date Admission Date: April 28, 2020 Subjective Postop day 1 patient sitting up in bed awake and alert. States that his block is starting to wear off and he is having a little bit of discomfort but is tolerating well. No other complaints at this time. Denies shortness of breath, chest pain, lightheadedness. Physical Exam Physical Exam: Dressings are clean, dry, and intact. Hemovac had a 75 cc out from the previous shift. She has good range of motion of his left wrist and fingers. Mild residual numbness in the thumb and index finger from the nerve block. Capillary refill is less than 2 seconds[address]ling is in place. Results & Data ([facility]) Vital Signs (Past 12 Hours) Vital Signs Temp Pulse Pulse Resp BP Pulse Ox 04/29/20 07:56 36.6 C 52 L 16 138/70 96 04/29/20 03:15 36.4 C L 56 L 18 131/74 98 04/28/20 23:45 36.6 C 61 18 123/68 93 Laboratory Results Laboratory Results WBC 10.35 K/uL (4.8-10.8) 04/29/20 05:41 RBC 4.39 M/uL (4.7-6.1) L 04/29/20 05:41 Hgb 12.9 g/dL (14.0-18.0) L 04/29/20 05:41 Hct 40.2 % (42-52) L 04/29/20 05:41 MCV 91.6 fL (80-100) 04/29/20 05:41 MCH 29.4 pg (25-34) 04/29/20 05:41 MCHC 32.1 g/dL (32-36) 04/29/20 05:41 RDW Std Deviation 44.0 fL (36.4-46.3) 04/29/20 05:41 RDW Coeff of Nicole 13.2 % (11.5-14.5) 04/29/20 05:41 Plt Count 243 K/uL (130-400) 04/29/20 05:41 MPV 9.6 fL (7.4-10.4) 04/29/20 05:41 Immature Gran % (Auto) 0.2 % 04/29/20 05:41 Neut % (Auto) 63.4 % 04/29/20 05:41 Lymph % (Auto) 24.3 % 04/29/20 05:41 Mineral % (Auto) 11.7 % 04/29/20 05:41 Eos % (Auto) 0.2 % 04/29/20 05:41 Baso % (Auto) 0.2 % 04/29/20 05:41 Neut # (Auto) 6.57 K/uL (1.4-6.5) H 04/29/20 05:41 Lymph # (Auto) 2.51 K/uL (1.2-3.4) 04/29/20 05:41 Mineral # (Auto) 1.21 K/uL (0.11-0.59) H 04/29/20 05:41 Eos # (Auto) 0.02 K/uL (0-0.5) 04/29/20 05:41 Baso # (Auto) 0.02 K/uL (0-0.2) 04/29/20 05:41 Immature Gran # (Auto) 0.02 K/uL (0.00-0.02) 04/29/20 05:41 PT 10.0 Seconds (9.0-12.0) 04/06/20 07:39 INR 0.9 (0.9-1.1) 04/06/20 07:39 APTT 26.8 Seconds (21.0-31.0) 04/06/20 07:39 PTT Ratio 1.0 04/06/20 07:39 Sodium 138 mmol/L (136-145) 04/29/20 05:41 Potassium 3.6 mmol/L (3.5-5.1) 04/29/20 05:41 Chloride 105 mmol/L (98-107) 04/29/20 05:41 Carbon Dioxide 24 mmol/L (21-32) 04/29/20 05:41 Anion Gap 9.0 (3-11) 04/29/20 05:41 BUN 19 mg/dl (7-18) H 04/29/20 05:41 Creatinine 1.18 mg/dl (0.6-1.4) 04/29/20 05:41 Est Cr Clr Drug Dosing 64.6 ml/min 04/29/20 05:41 Est GFR ( Amer) 69.1 04/29/20 05:41 Est GFR (Non-Af Amer) 59.6 04/29/20 05:41 BUN/Creatinine Ratio 15.9 (10-20) 04/29/20 05:41 Glucose 179 mg/dl (70-99) H 04/29/20 05:41 POC Glucose 152 mg/dl (70-99) H 04/29/20 08:12 Estimat Average Glucose 157 mg/dl 04/06/20 07:39 Hemoglobin A1c 7.1 % (4.5-5.6) H 04/06/20 07:39 Calcium 8.4 mg/dl (8.5-10.1) L 04/29/20 05:41 Albumin 3.5 gm/dl (3.4-5.0) 04/06/20 10:59 Urine Color Yellow 04/06/20 10:59 Urine Appearance Clear (Clear) 04/06/20 10:59 Urine pH 5.0 (4.5-7.5) 04/06/20 10:59 Ur Specific [place] >= 1.030 (1.000-1.030) 04/06/20 10:59 Urine Protein Negative (Negative) 04/06/20 10:59 Urine Glucose (UA) Trace (Negative) H 04/06/20 10:59 Urine Ketones Negative (Negative) 04/06/20 10:59 Urine Blood Negative (Negative) 04/06/20 10:59 Urine Nitrite Negative (Negative) 04/06/20 10:59 Urine Bilirubin Negative (Negative) 04/06/20 10:59 Urine Urobilinogen Negative (Negative) 04/06/20 10:59 Ur Leukocyte Esterase Negative (Negative) 04/06/20 10:59 Blood Type A Positive 04/06/20 10:59 Antibody Screen NEGATIVE 04/06/20 10:59
[2020-04-29] MEDS ORDERED: MULTIVITAMIN TAB PO SCH (09:00)
[2020-04-29] MEDS: INSULIN ASPART 100 UNITS/ML 3 ML PEN SC SCH ×2 (09:10→12:37)
[2020-04-29] MEDS: DOCUSATE SODIUM 100 MG CAP PO SCH (09:11)
--- NOTE | 2020-05-10 13:49 | Discharge Summary (DS) ---
HISTORY OF PRESENT ILLNESS: This is a 75-year-old male patient of Dr. Cabral'mulu complaining of chronic left shoulder pain and weakness, progressively getting worse. The patient has failed conservative treatment. He was diagnosed with rotator cuff arthropathy and has elected to proceed with a reverse total shoulder arthroplasty on the left. PAST MEDICAL HISTORY: Hypertension, sleep apnea, peripheral neuropathy, diabetes mellitus, rheumatoid arthritis, spine problems, neck problems, upper back problems, sciatica, hiatal hernia, obesity, and history of skin cancer. POSTOPERATIVE COURSE: The patient underwent a left reversed total shoulder arthroplasty on 04/28/2020. He was followed closely with medical consultation, pain control, limited physical therapy and will continue his aspirin for DVT prophylaxis. The patient did very well postoperatively. He had no concerns and was discharged home on postoperative day #1. PHYSICAL EXAMINATION: On discharge left shoulder dressings were clean, dry and intact. Drain was removed prior to discharge. The patient will continue his preadmission medications with the addition of pain medications. The patient will follow up as scheduled as an outpatient.
== END 2020-04-29 14:58 | disposition home or self-care (01) | DRG 483 ==
LOC: ASU 08:16 → OBSVTOIN 13:35 → 3E 13:35 → INTOOBSV 13:35

== ENCOUNTER 2023-03-26 10:20 | Inpatient (IN) ==
--- NOTE | 2023-03-05 12:41 | PAT Medication Instructions ---
Medication Instructions Date of Service March 05, 2023 Home Medications aspirin 81 mg tablet,delayed release (Aspir-) 81 mg PO HS insulin aspart U-100 100 unit/mL (3 mL) subcutaneous pen (Novolog FlexPen U-100 Insulin aspart) 6 - 12 unit subcut TIDM insulin detemir U-100 100 unit/mL (3 mL) subcutaneous pen (Levemir FlexTouch U- 100 Insulin) 14 unit subcut QPM metformin 1,000 mg tablet 1,000 mg PO BIDM atorvastatin 10 mg tablet (Lipitor) 10 mg PO HS hydrochlorothiazide 12.5 mg tablet 12.5 mg PO QAM donepezil 5 mg tablet (Aricept) 5 mg PO HS losartan 25 mg tablet 25 mg PO HS metoprolol succinate 25 mg tablet,extended release 24 hr (Toprol XL) 25 mg PO QAM tamsulosin 0.4 mg capsule (Flomax) 0.4 mg PO HS DO NOT take the morning of surgery insulin aspart U-100 100 unit/mL (3 mL) subcutaneous pen (Novolog FlexPen U-100 Insulin aspart) 6 - 12 unit subcut TIDM metformin 1,000 mg tablet 1,000 mg PO BIDM hydrochlorothiazide 12.5 mg tablet 12.5 mg PO QAM Take morning of surgery With a small sip of water, OTHERWISE NOTHING TO EAT OR DRINK AFTER MIDNIGHT: metoprolol succinate 25 mg tablet,extended release 24 hr (Toprol XL) 25 mg PO Q AM Take evening before surgery aspirin 81 mg tablet,delayed release (Aspir-) 81 mg PO HS (unless surgeon directed otherwise) insulin aspart U-100 100 unit/mL (3 mL) subcutaneous pen (Novolog FlexPen U-100 Insulin aspart) 6 - 12 unit subcut TIDM insulin detemir U-100 100 unit/mL (3 mL) subcutaneous pen (Levemir FlexTouch U- 100 Insulin) 14 unit subcut QPM metformin 1,000 mg tablet 1,000 mg PO BIDM atorvastatin 10 mg tablet (Lipitor) 10 mg PO HS donepezil 5 mg tablet (Aricept) 5 mg PO HS losartan 25 mg tablet 25 mg PO HS tamsulosin 0.4 mg capsule (Flomax) 0.4 mg PO HS Other Notes If you have any questions please call us at [phone] or [phone] or [phone] or [phone]
--- NOTE | 2023-03-12 11:04 | Anesthesiology Consultation ---
Date of Service March 12, 2023 Assessment & Plan (1) Encounter for pre-operative examination: - Check BSG AM DOS - COVID screening: Per assessment on 03/12: No known COVID-19 positive contacts or current COVID-19 related symptoms. Travel screen negative. Patient vaccinated. - S/P Left reverse TSA (04/28/20): Grade view 1, MAC#3, ETT 7.5 + PNB at [facility] - Cardiology visit (03/06/23): "Patient stable from a cardiac standpoint. Echocardiogram reviewed revealing a Preserved ejection fraction.. From a functional capacity standpoint, he is able to perform activities above 4 METS.. Do not recommend further invasive or noninvasive cardiovascular testing or procedures prior to proceeding with planned lumbar surgery. Patient is well optimized from a cardiac standpoint to proceed with his scheduled procedure. Recommend continuing beta-hanna throughout the perioperative phase.. Whether or not to stop ASA prior to surgery will be left to the surgeon's discretion. Would advise initiation as soon as possible postoperatively." Chart Review Chart Review: Acceptable Risk for Surgery and Patient seen in Pre Admission Testing Teaching & Discussion Pre-Anesthesia Teaching/Discussion Notes: Instructed NPO after midnight before surgery,except medications with 15 cc of water. Medication instructions provided according to the PAT guidelines. History Surgery Operation Date: 03/26/23 10:05 Proposed Procedures p L2-L3 Decompression and Fusion, L3-L4 Hardware Removal, Spinal Cord Monitoring - Haroldo Alanis DO Height/Weight Height: 6 ft Weight: 98.5 kg Allergies Allergy/AdvReac Type Severity Reaction Status Date / Time erythromycin base AdvReac Intermediate N/V, Verified 03/01/23 11:38 hematuria shellfish derived AdvReac Unknown severe Verified 03/01/23 11:38 nausea Medications Home Medications Medication Instructions Recorded Confirmed Last Taken aspirin 81 mg tablet,delayed 81 mg PO HS 06/10/18 03/01/23 04/27/20 23:00 release (Aspir-) insulin aspart U-100 100 unit/mL 6 - 12 unit subcut TIDM 06/10/18 03/01/23 04/27/20 19:00 (3 mL) subcutaneous pen (Novolog FlexPen U-100 Insulin aspart) insulin detemir U-100 100 unit/mL 14 unit subcut QPM 06/10/18 03/01/23 04/27/20 23:00 (3 mL) subcutaneous pen (Levemir FlexTouch U-100 Insulin) metformin 1,000 mg tablet 1,000 mg PO BIDM 06/10/18 03/01/23 2 Weeks Ago ~04/14/20 atorvastatin 10 mg tablet (Lipitor) 10 mg PO HS 03/30/20 03/01/23 04/27/20 17:00 hydrochlorothiazide 12.5 mg tablet 12.5 mg PO QAM 03/30/20 03/01/23 04/27/20 19:00 donepezil 5 mg tablet (Aricept) 5 mg PO HS 03/01/23 03/01/23 Unknown losartan 25 mg tablet 25 mg PO HS 03/01/23 03/01/23 Unknown metoprolol succinate 25 mg 25 mg PO QAM 03/01/23 03/01/23 Unknown tablet,extended release 24 hr (Toprol XL) tamsulosin 0.4 mg capsule (Flomax) 0.4 mg PO HS 03/01/23 03/01/23 Unknown Past Medical History Medical History Aortic aneurysm Cardiac MRA 07/2022: Stable borderline aneurysmal dilatation of the ascending aorta, arch, and descending segment with mild ectasia of the aortic root Under surveillance by cardiology Bifascicular block RBBB, 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 EKG which cardiology reviewed and felt was "consistent with previous studies" Degenerative disc disease cervical/lumbar with UE/LE radiculopathy Diabetes mellitus, type 2 IDDM Dyslipidemia Hiatal hernia History of atrial fibrillation Possible 2009 Follows with [facility], taking ASA/beta hanna HTN (hypertension) Hx of skin cancer, basal cell Hyperlipidemia Hypertension Neuropathy of both feet results in difficulty with ambulation Osteoarthritis Sleep apnea No device (did not tolerate CPAP), has had UPPP Spinal stenosis, lumbar region, with neurogenic claudication (05/01/14) Exercise / Class Metabolic Activity III < 4 Walking/Shop/Light housework Past Family History Family History Mother Family history of diabetes mellitus Grandfather (Paternal) Family history of diabetes mellitus Grandmother (Maternal) Family history of diabetes mellitus Other No family history of adverse response to anesthesia Past Surgical History Surgical History H/O left cataract extraction H/O right cataract extraction History of bunionectomy Right History of cardiac cath 2019- no stents History of eye surgery b/l UE eyelid "lift" + eye fat pad excision History of hip surgery to repair Right hip muscle with a tendon transfer (2020) History of hydrocelectomy History of lumbar fusion Hardware removal, L3-L4 decompression/fusion: 06/21/18: Grade 1 view, MAC#3, ETT 8.0 at [facility] History of reverse total replacement of left shoulder joint Left reverse TSA (04/28/20): Grade view 1, MAC#3, ETT 7.5 + PNB at [facility] History of reverse total replacement of right shoulder joint History of tonsillectomy and adenoidectomy + uvula removed (UPPP) Hx of bilateral cataract extraction Hx of colonoscopy Hx of LASIK BILATERAL EYES Hx of nasal septoplasty Hx of rotator cuff surgery x3 left and x1 right Hx of thumb surgery x2 (steel saumya implanted) Hx of total hip arthroplasty RIGHT Hx of vasectomy S/p bilateral blepharoplasty upper and lower lift (2 seperate surgeries) S/P epidural steroid injection S/P revision of total hip x2 (03/2021 & 07/2022) right hip revision S/P tendon repair transposition S/P trigger finger release thumb Status post hammertoe correction Past Anesthesia History No Hx of Anesthesia Complications and No Family Hx of Anesthesia Complications History of PONV No Hx of PONV and No Hx of Motion Sickness Social History Smoking Status: Never smoker Do You Dip or Chew Tobacco: No Hx Alcohol Use: Yes Alcohol type: beer and hard liquor alcohol intake frequency: a few times a month Hx Substance Use: No substance use type: does not use Review of Systems Patient denies chest pain, shortness of breath, fever, chills, cough, wheezing, palpitations. Physical Exam Vital Signs VITALS BP 154/81 P 52 TEMP 98.9 SP02 95%RA RESP 16 PHYSICAL Full cervical extension range of motion. Full TMJ range of motion. TMD 3 finger breaths Mallampati Score 1 Dentition: missing sides/molars, + several implants/crowns Lungs: clear throughout to auscultation Cardiac: regular rate and rhythm, no murmurs noted Spine: normal Carotid arteries: negative bruit Extremities: no LE edema Lab Results Anesthesia Preop Results Results Anesthesia Widget: WBC 7.47 K/ul (4.8-10.8) 03/12/23 Hgb 14.4 g/dl (14.0-18.0) 03/12/23 Hct 42.1 % (42.0-52.0) 03/12/23 Plt 229 K/uL (130-400) 03/12/23 PT 10.8 Seconds (9.0-12.0) 03/12/23 PTT 26.7 Seconds (21.0-31.0) 03/12/23 INR 1.0 (0.9-1.1) 03/12/23 Urine Color Dark Yellow 03/12/23 Urine Appearance Clear (Clear) 03/12/23 Urine pH 5.5 (4.5-7.5) 03/12/23 Urine Specific [place] 1.023 (1.000-1.030) 03/12/23 Urine Protein Negative (Negative) 03/12/23 Urine Glucose (UA) Negative (Negative) 03/12/23 Urine Ketones Negative (Negative) 03/12/23 Urine Blood Negative (Negative) 03/12/23 Urine Nitrite Negative (Negative) 03/12/23 Urine Bilirubin Negative (Negative) 03/12/23 Urine Urobilinogen Negative (Negative) 03/12/23 Urine Leukocyte Esterase Negative (Negative) 03/12/23 Blood Type A Positive 03/12/23 Antibody Screen NEGATIVE 03/12/23 Testing Laboratory Results 02/08/23 SODIUM 138 POTASSIUM 3.8 CHLORIDE 108 CO2 26.1 BUN 18.7 CREATININE 1.14 GLUCOSE 141 HGBA1C 6.8% Electrocardiogram Date: 03/06/23 SB at 53bpm. *RBBB. LAFB* EKG reviewed by cardiology and felt to be "consistent with previous studies" per cardiology preop evaluation visit 03/06/23* Chest X-Ray Date: 03/12/23 FINDINGS: Cardiomediastinal and hilar silhouettes are within normal limits. No pneumothorax, pleural effusion, airspace consolidation or pulmonary edema. Bilateral shoulder arthroplasties. Bones appear grossly intact. IMPRESSION: No acute process. Echocardiogram Date: 06/29/22 EF 55%. No obvious RWMA. Aortic root4.6 cm at the sinuses. RVSP 34 mmHg. Stress Test Date: 06/11/18 Type: exercise Resting EF: 55% The rest and stress images are not well matched and the study is technically difficult, despite the use of contrast; there appears to be basal and mid anterolateral hypokinesis with exercise. Exercise stress echocardiogram reveals basal and mid anterolateral ischemia. Patient has good functional status for age and exercise at a maximum workload of 10 METS. Pt had subsequent cath as below. Baseline echo showed normal resting wall josé antonio on, normal LV cavity size and wall thickness, preserved LV systolic function. Cardiac Catheterization Date: 02/12/19 Noncritical epicardial coronary artery disease with calcification of the left main/left anterior descending/left circumflex. Plan: Medical management. The patient is already on aspirin and high intensity statins. Outpatient follow-up. Other Testing Cardiac MRA Date: 08/02/22 Stable borderline aneurysmal dilatation of the ascending aorta, arch, and descending segment with mild ectasia of the aortic root. Mild 4chamber cardiomyopathy. COVID-19 Risk Screen Screening Information COVID-19 Screen Date: 03/12/23 Exposure 21 Days Family/Household +COVID Last 21 Days: No Exposure 10 Days Any COVID Exposure Last 10 Days: No Symptoms Last 10 Days Experienced COVID Sx Last 10 Days: No + COVID 0-90 Days COVID + in Last 0-90 Days: No
--- NOTE | 2023-03-26 09:50 | History & Physical Bridge Note ---
Date of Service March 26, 2023 History & Physical Bridge Note I have examined the patient, reviewed the History & Physical and in the interval since the performance of the History & Physical I have noted the following changes of clinical significance: no changes noted
--- NOTE | 2023-03-26 09:52 | History & Physical Report ---
Date of Service March 26, 2023 Assessment & Plan (1) Spinal stenosis, lumbar region, with neurogenic claudication: Plan: L2-L3 decompression and fusion, L3-L4 hardware removal History of Present Illness Chief Complaint: Back and bilateral leg pain Primary Care Provider: NO PCP This is a 69-year-old male who presents with chronic persistent back and leg pain after failing course of nonoperative care is here for surgical invention. Allergies Allergy/AdvReac Type Severity Reaction Status Date / Time erythromycin base AdvReac Intermediate N/V, Verified 03/01/23 11:38 hematuria shellfish derived AdvReac Unknown severe Verified 03/01/23 11:38 nausea Home Medications Medication Instructions Recorded Confirmed Type aspirin 81 mg tablet,delayed 81 mg PO HS 06/10/18 03/01/23 History release (Aspir-) insulin aspart U-100 100 unit/mL 6 - 12 unit subcut TIDM 06/10/18 03/01/23 History (3 mL) subcutaneous pen (Novolog FlexPen U-100 Insulin aspart) insulin detemir U-100 100 unit/mL 14 unit subcut QPM 06/10/18 03/01/23 History (3 mL) subcutaneous pen (Levemir FlexTouch U-100 Insulin) metformin 1,000 mg tablet 1,000 mg PO BIDM 06/10/18 03/01/23 History atorvastatin 10 mg tablet (Lipitor) 10 mg PO HS 03/30/20 03/01/23 History hydrochlorothiazide 12.5 mg tablet 12.5 mg PO QAM 03/30/20 03/01/23 History donepezil 5 mg tablet (Aricept) 5 mg PO HS 03/01/23 03/01/23 History losartan 25 mg tablet 25 mg PO HS 03/01/23 03/01/23 History metoprolol succinate 25 mg 25 mg PO QAM 03/01/23 03/01/23 History tablet,extended release 24 hr (Toprol XL) tamsulosin 0.4 mg capsule (Flomax) 0.4 mg PO HS 03/01/23 03/01/23 History Past Med/Surg History Medical History Aortic aneurysm Cardiac MRA 07/2022: Stable borderline aneurysmal dilatation of the ascending aorta, arch, and descending segment with mild ectasia of the aortic root Under surveillance by cardiology Bifascicular block RBBB, 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 EKG which cardiology reviewed and felt was "consistent with previous studies" Degenerative disc disease cervical/lumbar with UE/LE radiculopathy Diabetes mellitus, type 2 IDDM Dyslipidemia Hiatal hernia History of atrial fibrillation Possible 2009 Follows with [facility], taking ASA/beta hanna HTN (hypertension) Hx of skin cancer, basal cell Hyperlipidemia Hypertension Neuropathy of both feet results in difficulty with ambulation Osteoarthritis Sleep apnea No device (did not tolerate CPAP), has had UPPP Spinal stenosis, lumbar region, with neurogenic claudication (05/01/14) Surgical History H/O left cataract extraction H/O right cataract extraction History of bunionectomy Right History of cardiac cath 2018- no stents History of eye surgery b/l UE eyelid "lift" + eye fat pad excision History of hip surgery to repair Right hip muscle with a tendon transfer (2020) History of hydrocelectomy History of lumbar fusion Hardware removal, L3-L4 decompression/fusion: 06/21/18: Grade 1 view, MAC#3, ETT 8.0 at [facility] History of reverse total replacement of left shoulder joint Left reverse TSA (04/28/20): Grade view 1, MAC#3, ETT 7.5 + PNB at [facility] History of reverse total replacement of right shoulder joint History of tonsillectomy and adenoidectomy + uvula removed (UPPP) Hx of bilateral cataract extraction Hx of colonoscopy Hx of LASIK BILATERAL EYES Hx of nasal septoplasty Hx of rotator cuff surgery x3 left and x1 right Hx of thumb surgery x2 (steel saumya implanted) Hx of total hip arthroplasty RIGHT Hx of vasectomy S/p bilateral blepharoplasty upper and lower lift (2 seperate surgeries) S/P epidural steroid injection S/P revision of total hip x2 (03/2021 & 07/2022) right hip revision S/P tendon repair transposition S/P trigger finger release thumb Status post hammertoe correction Family History Mother Family history of diabetes mellitus Grandfather (Paternal) Family history of diabetes mellitus Grandmother (Maternal) Family history of diabetes mellitus Other No family history of adverse response to anesthesia Social History Smoking Status: Never smoker Second Hand Exposure: No; Do You Dip or Chew Tobacco: No; Tobacco Cessation Education Requested by Patient: No Hx Alcohol Use: Yes Alcohol type: beer and hard liquor Hx Substance Use: No Preferred Language: Nepali Communication Ability: Effective Furniture Sprayer Required: No Beliefs That Will Affect Care: None marital status: Current Living Situation: Spouse Other Information That Helps Us Care for You: No Feels Safe at Home: Yes Safety Concerns: Feels Safe At This Time Assistive Devices: Glasses Assistive Devices Comment: front upper teeth implants Physical Exam Physical Exam: Patient is alert and oriented Heart regular rhythm Lungs clear
[~2023-03-26 10:20] MED LIST changes: +BUPIVACAINE/EPINEPHRINE 0.25% 1:200,000 30 ML VIAL ONE; -FAMOTIDINE 20 MG TAB PO SCH; +LIDOCAINE 2% 2 ML VIAL/AMP(20MG/ML) INFIL ONE; +LR 60ML/HR IV SCH; -METOCLOPRAMIDE HCL 10 MG TABLET PO SCH; +MIDAZOLAM HCL 1 MG/ML 2ML VIAL ONE; +ONDANSETRON INJ 2 MG/ML 2 ML VIAL ONE; +PROPOFOL IV EMULSION 10 MG/ML 20 ML VIAL IV ONE; +ROCURONIUM BROMIDE 10 MG/ML 5 ML VIAL IV ONE; -ROPIVACAINE 0.5% 5 MG/ML 30 ML VIAL ONE; +ceFAZolin 330 MG/ML 1 GM VIAL ONE; +fentaNYL citrate PF 100 MCG/2 ML VIAL ONE
[2023-03-26] MEDS ORDERED: ePHEDrine sulfate 50 MG/ML AMP ONE (10:53)
[2023-03-26] MEDS ORDERED: PROMETHAZINE HCL 6.25 MG in SODIUM CHLORIDE 0.9% 50 ML IV PRN (11:03)
[2023-03-26] MEDS ORDERED: ONDANSETRON INJ 2 MG/ML 2 ML VIAL IV PRN ×2 (11:03→14:17)
[2023-03-26] MEDS ORDERED: ATROPINE SULFATE 0.1 MG/ML 10ML SYR IV PRN (11:03)
[2023-03-26] MEDS ORDERED: FLOSEAL HEMOSTATIC MATRIX 10ML TOP ONE ×2 (11:42→11:58)
[2023-03-26] MEDS ORDERED: fentaNYL citrate PF 100 MCG/2 ML VIAL ONE (12:11)
[2023-03-26] MEDS ORDERED: SUGAMMADEX SODIUM 200 MG/2 ML VIAL IV ONE (12:30)
--- NOTE | 2023-03-26 12:47 | Operative Report ---
Post Operative Report Pre & Post Diagnosis Operation Date: 03/26/23 11:25 Pre-Op Diagnosis: Lumbar spinal stenosis with neurogenic claudication Post-Op Diagnosis: Same I identified the patient and participated in the time-out.: Yes Procedure Operation Date: 03/26/23 11:25 Actual Procedures #1 removal of posterior instrumentation L3-L4. #2 exploration of fusion L3-L4. #3 lumbar decompression bilaterally facetectomies and foraminotomies L1-L2, L2- L3. #4 posterior spinal fusion L2-L3. #5 placement posterior instrumentation L2-L4. #6 interbody fusion L2-L3. #7 placement of Spira 13 x 26 mm cage at L2- L3. #8 placement locally harvested morselized autograft in the posterior gutters. #9 placement of I factor in the interbody space and infuse bone sponge, and master graft in the posterior lateral gutters. Surgeon Haroldo Alanis DO Bending Shed Worker Teri Aguilar Estimated Blood Loss 150 Findings Consistent with Post-Op Diagnosis Specimens None Indications This is a 69-year-old male known to me the presents above-mentioned diagnosis and failing since course of nonoperative care is here for surgical invention. Description of Procedure Patient was met with identified informed consent obtained. Patient was then taken to the operative suite underwent a patient placed in a prone position on the Naif table top of the Jeffery frame. All bony promises well-padded eyes inspected to ensure no external pressure placed upon the. This point the thoracolumbar spine was prepped draped normal sterile fashion. Sharp dissection with the assistance of Bovie cautery performed down to and exposing the lamina transverse processes of L2 and instrumentation at L3-L4 bilaterally. Then proceeded move the hardware bilaterally explore the fusion mass noting it to be mature and intact. Then performed a complete laminectomy of L2 partial laminectomy of L1 including bilaterally facetectomies and foraminotomies addressing severe spinal stenosis. Pedicle screws then placed in L2-L3-L4 bilaterally with assistance of fluoroscopy and the properly sized saumya placed. By way of a trans foraminal approach on the right a complete discectomy of L2-L3 was performed endplates corrected to subcortical bleeding bone and a 13 x 26 mm Spira cage filled with I factor tapped in position. The rods were then locked in final position bilaterally. The transverse processes of L to L3 were burred to subcortical bleeding bone. Infuse collagen sponge, master graft local only harvested autograft was placed in the posterior gutters. 15 round CHERRI drain inserted. The incision was then closed with 1 Vicryl the fascia 2-0 Vicryl subcutaneously and 4 Monocryl for final skin closure. Steri-Strips sterile dressing placed. Patient awakened taken to PACU in stable condition. Please note spinal cord monitoring was utilized at the procedure no changes noted. Lastly Teri Aguilar was present at the entire surgery and while the patient positioning complex portion of the surgery and final skin closure. I attest to the content of the Intraoperative Record and any orders documented therein. Any exceptions are noted below.
[2023-03-26] MEDS: HYDROmorphone INJ 1 MG/ML SYRINGE IV PRN ×5 (13:11→19:55)
--- NOTE | 2023-03-26 13:22 | Fluoroscopy Report ---
FL lumbar spine 2-3V CLINICAL HISTORY: L3-L4 HARDWARE REMOVAL, L2-L3 DECOMPRESSION AND FUSION TECHNIQUE: 2 views were obtained with the C-arm in the OR with the above procedure. Total fluoroscopy time was 16.2 seconds. Radiation dose was 11.08 mGy. Comparison: Comparison is made to lumbar spine fluoroscopy 06/21/2018 FINDINGS/IMPRESSION: Intraoperative images were obtained of L2-L4 discectomy and fusion. Hardware rep lacement of L3-L4. Please correlate with intraoperative fluoroscopy and operative report. ACT 112: Negative or not required by law. Electronically signed by: Duane Dobson M.D. 03/26/2023 1:21 PM
--- NOTE | 2023-03-26 14:11 | Anesthesiology Progress Note ---
Date of Service March 26, 2023 Anesthesia Post Procedure Vital Signs Vital Signs: Temp Pulse Resp BP Pulse Ox O2 Del Method O2 Flow Rate 03/26/23 13:40 36.3 C L 45 L 14 144/70 H 96 Room Air 03/26/23 13:30 44 L 12 146/66 H 95 Room Air 03/26/23 13:20 46 L 12 128/67 98 Nasal Cannula 2 03/26/23 13:00 43 L 12 128/62 99 Oxymask 10 03/26/23 13:10 44 L 12 133/70 100 Oxymask 10 03/26/23 12:54 36.3 C L 49 L 12 127/63 98 Oxymask 10 03/26/23 10:49 36.4 C L 45 L 18 167/78 H 98 Room Air Pain Intensity Back: Pain Intensity: 4 Transfer of Care Handoff Completed per policy Notes Mental Status: alert / awake / arousable Patient Amnestic to Procedure: Yes Nausea / Vomiting: adequately controlled Pain: adequately controlled Airway Patency, RR, SpO2: stable & adequate BP & HR: stable & adequate Hydration State: stable & adequate Anesthetic Complications: no major complications apparent
[2023-03-26] MEDS ORDERED: DO NOT ADMINISTER FLU VACCINE PRN (14:17)
[2023-03-26] MEDS ORDERED: FAMOTIDINE 20 MG TAB PO PRN (14:17)
[2023-03-26] MEDS ORDERED: bisacodyL 10 MG SUPP PR PRN (14:17)
[2023-03-26] MEDS ORDERED: PROMETHAZINE HCL 12.5 MG in SODIUM CHLORIDE 0.9% 50 ML IV PRN (14:17)
[2023-03-26] MEDS ORDERED: SOD PHOSPHATE/SOD BIPHOSPHATE ENEMA 132 ML BTL PR PRN (14:17)
[2023-03-26] MEDS ORDERED: traMADol HCL 50 MG TABLET PO PRN (14:17)
[2023-03-26] MEDS ORDERED: hydrOXYzine HCl 25 MG TAB PO PRN (14:17)
[2023-03-26] MEDS ORDERED: METOCLOPRAMIDE HCL INJ 5 MG/ML 2 ML VIAL IV PRN (14:17)
[2023-03-26] MEDS ORDERED: NALOXONE HCL 0.4 MG/1 ML VIAL/CARP IV PRN (14:17)
[2023-03-26] MEDS ORDERED: LORazepam 0.5 MG TAB PO PRN (14:17)
[2023-03-26] MEDS ORDERED: ALUMINUM/MAGNESIUM SUSP 30 ML UDC PO PRN (14:17)
[2023-03-26] MEDS ORDERED: MAGNESIUM HYDROXIDE SUSP 30 ML UDC PO PRN (14:17)
[2023-03-26] MEDS ORDERED: DO NOT ADMINISTER PNEUMOCOCCAL VACCINE PRN (14:17)
[2023-03-26] MEDS ORDERED: ACETAMINOPHEN 1,000 MG/100 ML VIAL IV PRN (14:17)
[2023-03-26] MEDS ORDERED: LORazepam 2 MG/1 ML VIAL IV PRN (14:17)
[2023-03-26] MEDS ORDERED: ONDANSETRON 4 MG OD TAB PO PRN (14:17)
[2023-03-26] MEDS ORDERED: ACETAMINOPHEN 500 MG TAB PO PRN (14:17)
[2023-03-26] MEDS ORDERED: diphenhydrAMINE Capsule 25 MG CAP PO PRN (14:17)
[2023-03-26] MEDS ORDERED: PHARMACY GLYCEMIC MGMT CONSULT PRN (14:17)
--- NOTE | 2023-03-26 14:44 | Pharmacy Report ---
Pharmacy Glycemic Short Note 2 - Date of Service March 26, 2023 - Glycemic Short BSG Results (Last 24 hours): 03/26/23 03/26/23 10:38 12:55 POC Glucose 148 H 164 H OUTPATIENT ANTIDIABETIC REGIMEN: * Levemir 14 units SC PM * Novolog 6-12 units SC AC * Metformin 1000 mg PO BIDM * HbA1c: 6.8% (02/08/23) ASSESSMENT: * 77 yo M admitted on 03/26/23 post-operatively following a L2-L3 decompression and fusion with Dr Alanis. Pharmacy has been consulted to assist with inpatient glycemic management. Patient is a controlled Type 2 diabetic as an outpatient. Please refer to outpatient regimen and most recent HbA1c above. * Did receive 4 mg of IV dexamethasone sheng-operatively. No ongoing steroid orders. Ordered a type 2 diet, unsure if tolerating at this time. Will check with RN. * Pre-op BSG was 148 mg/dL. Post-op BSG was 164 mg/dL. * Will give a one time dose of Lantus at 30% of an increase from home dose given steroids. Will administer at dinner rather than bedtime to account for steroids. * Normal target range. Novolog will be started based on weight/stress of 3. Will add a single overnight check for the first post-op night only. PLAN FOR INPATIENT GLYCEMIC CONTROL: * Hold outpatient oral diabetes medications * Basal insulin * Lantus 18 units SC x 1 with dinner * Bolus insulin * NovoLog per scale ACHS or Q6hrs while NPO * Goal Range: Low 110 mg/dL - High 140 mg/dL * Correction Factor: 15 mg/dL/unit * Nutritional / Prandial insulin per carb ratio of 1 unit per 6 grams CHO consumed
[2023-03-26] MEDS ORDERED: GLUCOSE 40% GEL 15 GM TUBE PO PRN (15:00)
[2023-03-26] MEDS ORDERED: GLUCOSE 10 TAB/TUBE PO PRN (15:00)
[2023-03-26] MEDS ORDERED: CARBOHYDRATES FOR HYPOGLYCEMIA PO PRN (15:00)
[2023-03-26] MEDS ORDERED: DEXTROSE 50% 50 ML SYRINGE IV PRN (15:00)
[2023-03-26] MEDS ORDERED: GLUCAGON FOR INJ 1 MG VIAL IM PRN (15:00)
[2023-03-26] MEDS: SODIUM CHLORIDE 0.9% 1000ML 1,000 ML IV SCH ×2 (15:13→23:01)
--- NOTE | 2023-03-26 15:21 | Consultation ---
Date of Consultation March 26, 2023 Assessment & Plan (1) Spinal stenosis, lumbar region, with neurogenic claudication: (2) Diabetes mellitus: (3) HTN (hypertension): (4) Dyslipidemia: Plan This is a 77-year-old male with significant past medical history of HTN, HLD, insulin-dependent T2DM, cognitive impairment and BPH presents for elective lumbar procedure by Dr. Alanis. S/P L3-L4 hardware removal, L2-L3 lumbar decompression fusion POD #0 EBL 150ml pain/wound management per ortho activity and therapy as prescribed by ortho encourage incentive spirometry monitor hgb, pre op 14.4 Insulin dependent type 2 diabetes mellitus a1c 02/08/23 6.8 chronic, stable continue insulin regimen per glycemic pharmacist, appreciate their assistance HTN chronic, elevated, likely in setting of pain continue losartan, metoprolol (with parameters in setting of bradycardia), hctz will give 10mg IV hydralazine x 1 due to still > 180 systolic HLD Continue statin chronic, stable Sinus bradycardia chronic, HR in 40s ecg obtained and reviewed, HR 40, no signs of AV block, compared to ecg from February w/o significant change Made aware by nurse patient's heart rate now in the 30s, will repeat EKG repeat EKG reveals marked SB, new RBBB and worsened T wave inversions He is asymptomatic at this time Given significant bradycardia will transfer down to telemetry for further monitoring Hold metoprolol succinate 25 mg daily for now, and this likely may need to be discontinued as patient states heart rate typically is in 40s will cycle troponin x 3, obtain echocardiogram and consult cardiology Pt follows [facility] cardiology and pre op note was reviewed Last echo 06/2022 EF 55% normal RV size and systolic function, aortic root 4.6cm - followed with serial MRAs, last done 07/2022 repeat ecg in am. and follow pt denies cp,sob, lightheaded, dizziness BPH continue flomax chronic stable DVT ppx: SCDS FULL CODE PCP: Silvestre Swann PA Dispo: per primary Pt was seen and examined in collaboration with Dr. Mcleod, please see addendum Thank you for this consultation. We will follow the patient with you during their hospital stay. You can reach a member of the [facility] Hospitalist Team 12/03 via hospitalist role on tiger text. Supervising Physician Co-Signing Physician Notes I have seen and examined the patient and have discussed the case with the provider above. I agree with the assessment and plan as stated with the foll owing exceptions. 77 yo M underwent lumbar surgery today by Dr. Alanis. He is reporting significant post-operative pain which is likely contributing to his elevated blood pressure. He has been dosed with 1mg Diladid, oxy 10mg and Tylenol 1000mg IV and his pain is down from 8/10 to 5/10. Although he appears more comfortable at this time, he is still very hypertensive. Agree with hydralazine 10mg IV now and moving him to telemetry. EKG does not reflect any significant heart block, and he has a known h/o asymptomatic bradycardia on metoprolol as outpatient. He is following with [facility] and was last seen by then 02/07/23. Preoperatively he was felt to be stable from a cardiac perspective. He has a h/o PAF and is currently in sinus bradycardia. He did take his metoprolol today and reports taking it at home even if heart rate is low. Repeat EKG reveals more pronounced TWI in inferior II, III, AVF and lateral leads (II, AVL). HS troponin was checked and negative, echo and cardiology consultation. Will move to telemetry floor and repeat EKG in am. Cont to monitor BP closely. Hold BB is HR<60. DO Harsha History of Present Illness Requesting Physician: Dr. Alanis Reason for Consultation: Postop medical management Attending Physician: Haroldo Alanis DO History of Present Illness This is a 77-year-old male with significant past medical history of HTN, HLD, insulin-dependent T2DM, cognitive impairment and BPH presents for elective lumbar procedure by Dr. Alanis. Patient underwent L3-L4 hardware removal with L2-3 decomp fusion. Postoperatively he is complaining of incisional pain but no radicular symptoms. Currently pain is an 8 out of 10 and he just received analgesia. He has not yet taken anything p.o. since procedure. He denies any fever, chills, sweats, lightheadedness, dizziness, chest pain, shortness of breath, nausea, vomiting, abdominal pain. He denies any difficulty with bowel or urinary function prior to procedure. Of significance patient does have history of T2DM. He is controlled on insulin regimen. Last documented A1c in medical records is 7.0 back in 2019. He also has history of hypertension controlled on hydrochlorothiazide, losartan and metoprolol. Patient does have known history of sinus bradycardia and states that his heart rate is typically 50 or below. He denies any dizziness or lightheadedness from this. Allergies Allergy/AdvReac Type Severity Reaction Status Date / Time erythromycin base AdvReac Intermediate N/V, Verified 03/26/23 10:51 hematuria shellfish derived AdvReac Unknown severe Verified 03/26/23 10:51 nausea Home Medications Medication Instructions Recorded Confirmed Type aspirin 81 mg tablet,delayed 81 mg PO HS 06/10/18 03/26/23 History release (Aspir-) insulin aspart U-100 100 unit/mL 6 - 12 unit subcut TIDM 06/10/18 03/26/23 History (3 mL) subcutaneous pen (Novolog FlexPen U-100 Insulin aspart) insulin detemir U-100 100 unit/mL 14 unit subcut QPM 06/10/18 03/26/23 History (3 mL) subcutaneous pen (Levemir FlexTouch U-100 Insulin) metformin 1,000 mg tablet 1,000 mg PO BIDM 06/10/18 03/26/23 History atorvastatin 10 mg tablet (Lipitor) 10 mg PO HS 03/30/20 03/26/23 History hydrochlorothiazide 12.5 mg tablet 12.5 mg PO QAM 03/30/20 03/26/23 History donepezil 5 mg tablet (Aricept) 5 mg PO HS 03/01/23 03/26/23 History losartan 25 mg tablet 25 mg PO HS 03/01/23 03/26/23 History metoprolol succinate 25 mg 25 mg PO QAM 03/01/23 03/26/23 History tablet,extended release 24 hr (Toprol XL) tamsulosin 0.4 mg capsule (Flomax) 0.4 mg PO HS 03/01/23 03/26/23 History Patient History Medical History Aortic aneurysm Cardiac MRA 07/2022: Stable borderline aneurysmal dilatation of the ascending aorta, arch, and descending segment with mild ectasia of the aortic root Under surveillance by cardiology Bifascicular block RBBB, 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 EKG which cardiology reviewed and felt was "consistent with previous studies" Degenerative disc disease cervical/lumbar with UE/LE radiculopathy Diabetes mellitus, type 2 IDDM Dyslipidemia Hiatal hernia History of atrial fibrillation Possible 2009 Follows with [facility], taking ASA/beta hanna HTN (hypertension) Hx of skin cancer, basal cell Hyperlipidemia Hypertension Neuropathy of both feet results in difficulty with ambulation Osteoarthritis Sleep apnea No device (did not tolerate CPAP), has had UPPP Spinal stenosis, lumbar region, with neurogenic claudication (05/01/14) Surgical History H/O left cataract extraction H/O right cataract extraction History of bunionectomy Right History of cardiac cath 2019- no stents History of eye surgery b/l UE eyelid "lift" + eye fat pad excision History of hip surgery to repair Right hip muscle with a tendon transfer (2020) History of hydrocelectomy History of lumbar fusion Hardware removal, L3-L4 decompression/fusion: 06/21/18: Grade 1 view, MAC#3, ETT 8.0 at [facility] History of reverse total replacement of left shoulder joint Left reverse TSA (04/28/20): Grade view 1, MAC#3, ETT 7.5 + PNB at [facility] History of reverse total replacement of right shoulder joint History of tonsillectomy and adenoidectomy + uvula removed (UPPP) Hx of bilateral cataract extraction Hx of colonoscopy Hx of LASIK BILATERAL EYES Hx of nasal septoplasty Hx of rotator cuff surgery x3 left and x1 right Hx of thumb surgery x2 (steel saumya implanted) Hx of total hip arthroplasty RIGHT Hx of vasectomy S/p bilateral blepharoplasty upper and lower lift (2 seperate surgeries) S/P epidural steroid injection S/P revision of total hip x2 (03/2021 & 07/2022) right hip revision S/P tendon repair transposition S/P trigger finger release thumb Status post hammertoe correction Family History Mother Family history of diabetes mellitus Grandfather (Paternal) Family history of diabetes mellitus Grandmother (Maternal) Family history of diabetes mellitus Other No family history of adverse response to anesthesia Social History Smoking Status: Never smoker Second Hand Exposure: No; Do You Dip or Chew Tobacco: No; Tobacco Cessation Education Requested by Patient: No Hx Alcohol Use: Yes Alcohol type: beer and hard liquor Hx Substance Use: No Preferred Language: Israeli Communication Ability: Effective Perfume Compounder Required: No Beliefs That Will Affect Care: None marital status: Current Living Situation: Spouse Other Information That Helps Us Care for You: No Feels Safe at Home: Yes Safety Concerns: Feels Safe At This Time Assistive Devices: Glasses Assistive Devices Comment: front upper teeth implants Review of Systems Review of Systems: All systems reviewed & are unremarkable except as noted in HPI & below Physical Exam Physical Exam: Constitutional: WD/WN, elderly, M, vitals as above, NAD, lying in bed, drowsy, pleasant, conversing easily Head: Normocephalic, Atraumatic Eyes: PERRL, conjunctivae normal, anicteric sclerae ENMT: external ear and nose normal, oropharynx normal dry membranes Neck: trachea midline, no thyromegaly normal visual inspection Respiratory: normal respiratory effort, lungs clear to auscultation, no wheeze, rales, rhonchi. Normal insp/exp effort, no accessory muscle use Cardiovascular: sinus bradycardia, reg rhythm, no murmur, no edema Vessels: no JVD or carotid bruit Chest: normal inspection of chest Abdomen: normal bowel sounds, soft, nontender, no hepatosplenomegaly Musculoskeletal: no cyanosis or clubbing, AROM x 4 Skin: no rashes, warm and dry normal turgor Neurologic: PERRL, EOMI, accommodation nl, no face palsy, no dysarthria CN's II-XI intact bilaterally and moves all extremities Psychiatric: A+Ox3, euthymic affect Lymphatic: no cervical or axillary lymphadenopathy : deferred Results & Data Vital Signs (Past 12 Hours) Vital Signs Temp Pulse Pulse Resp BP Pulse Ox O2 Del Method 03/26/23 15:06 36.3 C L 42 L 16 168/75 H 93 Room Air 03/26/23 14:30 36.7 C 41 L 16 181/79 H 94 Room Air 03/26/23 14:00 36.2 C L 43 L 16 166/81 H 96 Room Air 03/26/23 13:40 36.3 C L 45 L 14 144/70 H 96 Room Air 03/26/23 13:30 44 L 12 146/66 H 95 Room Air 03/26/23 13:20 46 L 12 128/67 98 Nasal Cannula 03/26/23 13:00 43 L 12 128/62 99 Oxymask 03/26/23 13:10 44 L 12 133/70 100 Oxymask 03/26/23 12:54 36.3 C L 49 L 12 127/63 98 Oxymask 03/26/23 10:49 36.4 C L 45 L 18 167/78 H 98 Room Air O2 Flow Rate 03/26/23 15:06 03/26/23 14:30 03/26/23 14:00 03/26/23 13:40 03/26/23 13:30 03/26/23 13:20 2 03/26/23 13:00 10 03/26/23 13:10 10 03/26/23 12:54 10 03/26/23 10:49 Laboratory Results Lab work 03/12/23 wbc 7.4, h/h 14.4 and 42.1, plt 229 Urinalysis negative Diagnostic Findings Lumbar Spine X-Ray 03/26/23 11:25 FL lumbar spine 2-3V CLINICAL HISTORY: L3-L4 HARDWARE REMOVAL, L2-L3 DECOMPRESSION AND FUSION TECHNIQUE: 2 views were obtained with the C-arm in the OR with the above procedure. Total fluoroscopy time was 16.2 seconds. Radiation dose was 11.08 mGy. Comparison: Comparison is made to lumbar spine fluoroscopy 06/21/2018 FINDINGS/IMPRESSION: Intraoperative images were obtained of L2-L4 discectomy and fusion. Hardware replacement of L3-L4. Please correlate with intraoperative fluoroscopy and operative report. ACT 112: Negative or not required by law. Electronically signed by: Duane Dobson M.D. 03/26/2023 1:21 PM PRE OP CXR 03/11 no acute process Medications Administered Current Inpatient Medications Acetaminophen (Acetaminophen 500 Mg Tab) 1,000 mg PO PREOP KATE Stop: 03/26/23 18:00 Last Admin: 03/26/23 10:54 Dose: 1,000 mg Acetaminophen (Acetaminophen 500 Mg Tab) 1,000 mg PO Q8H PRN PRN Reason: MILD Pain Scale 1,2,3 & Pre PT Stop: 04/25/23 14:16 Al Hydrox/Mg Hydrox/Simethicone (Aluminum/Magnesium Susp 30 Ml Udc) 30 ml PO Q6H PRN PRN Reason: Dyspepsia Stop: 04/25/23 14:16 Aspirin (Aspirin 81 Mg Ectab) 81 mg PO HS KATE Stop: 04/25/23 20:59 Atorvastatin Calcium (Atorvastatin 10 Mg Tab) 10 mg PO HS KATE Stop: 04/25/23 20:59 Atropine Sulfate (Atropine Sulfate 0.1 Mg/Ml 10ml Syr) 0.5 mg IV Q1M PRN PRN Reason: PACU Use-HR<40 &/or Bradycardi Stop: 03/26/23 19:03 Bisacodyl (Bisacodyl 10 Mg Supp) 10 mg OR DAILY PRN PRN Reason: Constipation Stop: 04/25/23 14:16 Celecoxib (Celebrex 200 Mg Cap) 200 mg PO PREOP KATE Stop: 03/26/23 18:00 Last Admin: 03/26/23 10:54 Dose: 200 mg Dextrose (Dextrose 50% 50 Ml Syringe) 25 - 50 ml IV UD PRN; Protocol PRN Reason: Hypoglycemia Protocol Stop: 04/25/23 14:59 Diphenhydramine HCl (Diphenhydramine Capsule 25 Mg Cap) 25 mg PO Q6H PRN PRN Reason: Allergic Rhinitis/Insomnia Stop: 04/25/23 14:16 Donepezil HCl (Donepezil Hcl 5 Mg Tab) 5 mg PO HS KATE Stop: 04/25/23 20:59 Famotidine (Famotidine 20 Mg Tab) 20 mg PO Q12H PRN PRN Reason: Dyspepsia Stop: 04/25/23 14:16 Gabapentin (Gabapentin 300 Mg Cap) 300 mg PO PREOP KATE Stop: 03/26/23 18:00 Last Admin: 03/26/23 10:54 Dose: 300 mg Glucagon (Glucagon For Inj 1 Mg Vial) 1 mg IM UD PRN; Protocol PRN Reason: Hypoglycemia Protocol Stop: 04/25/23 14:59 Glucose (Glucose 40% Gel 15 Gm Tube) 15 - 30 gm PO UD PRN; Protocol PRN Reason: Hypoglycemia Protocol Stop: 04/25/23 14:59 Glucose (Glucose 10 Tab/Tube) 4 - 8 tab PO UD PRN; Protocol PRN Reason: Hypoglycemia Protocol Stop: 04/25/23 14:59 Hydrochlorothiazide (Hydrochlorothiazide 25 Mg Tab) 12.5 mg PO QAM KATE Stop: 04/26/23 08:59 Hydromorphone HCl (Hydromorphone Inj 1 Mg/Ml Syringe) 0.25 mg IV Q5M PRN PRN Reason: PACU Use Only-Pain Stop: 03/26/23 19:03 Last Admin: 03/26/23 13:21 Dose: 0.25 mg Hydromorphone HCl (Hydromorphone Inj 0.5 Mg/0.5 Ml Syr) 0.5 mg IV Q3H PRN PRN Reason: MODERATE Pain (Scale 4,5,6) & Pre PT Stop: 04/09/23 14:16 Hydromorphone HCl (Hydromorphone Inj 1 Mg/Ml Syringe) 1 mg IV Q3H PRN PRN Reason: SEVERE Pain (Scale 7,8,9,10) Stop: 04/09/23 14:16 Last Admin: 03/26/23 14:37 Dose: 1 mg Hydroxyzine HCl (Hydroxyzine Hcl 25 Mg Tab) 25 mg PO Q8H PRN PRN Reason: Anxiety Stop: 04/25/23 14:16 Lactated Ringer's (Lr) 1,000 mls @ 15 mls/hr IV .Q24H KATE Stop: 03/27/23 05:59 Last Infusion: 03/26/23 11:51 Dose: Infused Lactated Ringer's (Lr) 1,000 mls @ 60 mls/hr IV .[id number] KATE Stop: 03/26/23 22:39 Last Admin: 03/26/23 10:55 Dose: Not Given Cefazolin Sodium (Ancef 2000mg) 2,000 mg in 15 mls @ 3.75 mls/min IV PREOP KATE; Protocol Stop: 03/26/23 18:00 Last Admin: 03/26/23 11:03 Dose: 3.75 mls/min Promethazine HCl 6.25 mg/ (Sodium Chloride) 50.25 mls @ 204 mls/hr IV ONCE PRN PRN Reason: PACU Use Only-Nausea/Vomiting Stop: 03/26/23 19:03 Acetaminophen (Ofirmev) 1,000 mg in 100 mls @ 400 mls/hr IV Q8H PRN PRN Reason: Pain Rating 1-3 & Pre PT Stop: 03/27/23 14:17 Sodium Chloride (Nss 1000ml) 1,000 mls @ 150 mls/hr IV .Q6H40M [facility] Stop: 04/25/23 14:16 Last Admin: 03/26/23 15:13 Dose: 150 mls/hr Promethazine HCl 12.5 mg/ (Sodium Chloride) 50.5 mls @ 202 mls/hr IV Q6H PRN PRN Reason: Nausea &/or Vomiting Stop: 04/25/23 14:16 Cefazolin Sodium (Ancef 2000mg) 2,000 mg in 15 mls @ 3.75 mls/min IV Q8H [facility]; Protocol Stop: 03/27/23 03:03 Influenza Virus Vaccine Quadrival (Do Not Administer Flu Vaccine) 1 each N/A PRN PRN PRN Reason: Notification Stop: 04/25/23 14:16 Insulin Aspart (Insulin Aspart Per Unit Charge) 0 units SC ACHS [facility]; Protocol Stop: 04/25/23 16:29 Insulin Aspart (Insulin Aspart Per Unit Charge) 0 units SC ONE ONE; Protocol Stop: 03/27/23 02:01 Insulin Glargine (Lantus Per Unit Charge) 18 units SC ONE ONE; Protocol Stop: 03/26/23 16:31 Lorazepam (Lorazepam 0.5 Mg Tab) 0.5 mg PO Q8H PRN PRN Reason: Sedation/Anxiety Stop: 04/25/23 14:16 Lorazepam (Lorazepam 2 Mg/1 Ml Vial) 0.5 mg IV Q8H PRN PRN Reason: Sedation/Anxiety Stop: 04/25/23 14:16 Losartan Potassium (Losartan Potassium 25 Mg Tab) 25 mg PO HS [facility] Stop: 04/25/23 20:59 Magnesium Hydroxide (Magnesium Hydroxide Susp 30 Ml Udc) 30 ml PO Q24H PRN PRN Reason: Constipation Stop: 04/25/23 14:16 Metoclopramide HCl (Metoclopramide Hcl Inj 5 Mg/Ml 2 Ml Vial) 10 mg IV Q6H PRN PRN Reason: Nausea &/or Vomiting Stop: 04/25/23 14:16 Metoprolol Succinate (Metoprolol Succ 25mg Ext Rel Tab) 25 mg PO QAM [facility] Stop: 04/26/23 08:59 Miscellaneous (Carbohydrates For Hypoglycemia ) 15 - 30 gm PO UD PRN PRN Reason: Hypoglycemia Treatment Stop: 04/25/23 14:59 Miscellaneous Information (Pharmacy Glycemic Mgmt Consult) 1 each N/A UD PRN PRN Reason: Consult Stop: 04/25/23 14:16 Naloxone HCl (Naloxone Hcl 0.4 Mg/1 Ml Vial/Carp) 0.1 mg IV Q5M PRN PRN Reason: Oversedation/Resp depression Stop: 04/25/23 14:16 Ondansetron HCl (Ondansetron Inj 2 Mg/Ml 2 Ml Vial) 4 mg IV ONCE PRN PRN Reason: PACU Use Only-Nausea/Vomiting Stop: 03/26/23 19:03 Ondansetron HCl (Ondansetron Inj 2 Mg/Ml 2 Ml Vial) 4 mg IV Q6H PRN PRN Reason: Nausea &/or Vomiting Stop: 04/25/23 14:16 Ondansetron HCl (Ondansetron 4 Mg Od Tab) 4 mg PO Q6H PRN PRN Reason: Nausea Stop: 04/25/23 14:16 Oxycodone HCl (Oxycodone Hcl Ir 5 Mg Tab (Immediate Release)) 5 - 10 mg PO Q4H PRN PRN Reason: Pain & Pre PT Stop: 04/09/23 14:16 Pneumococcal Polyvalent Vaccine (Do Not Administer Pneumococcal Vaccine) 1 each N/A PRN PRN PRN Reason: Notification Stop: 04/25/23 14:16 Polyethylene Glycol (Polyethylene (Miralax) 17 Gm Pack) 17 gm PO Q6 KATE Stop: 04/26/23 05:59 Senna/Docusate Sodium (Docusate Sodium/Senna 50/8.6mg Tab) 2 tab PO HS KATE Stop: 04/25/23 20:59 Sodium Biphosphate/Sodium Phosphate (Sod Phosphate/Sod Biphosphate Enema 132 Ml Btl) 132 ml OR ONE PRN PRN Reason: Constipation Stop: 04/25/23 14:16 Tamsulosin HCl (Tamsulosin Hcl 0.4 Mg Cap) 0.4 mg PO HS KATE Stop: 04/25/23 20:59 Tramadol HCl (Tramadol Hcl 50 Mg Tablet) 50 - 100 mg PO Q4H PRN PRN Reason: Moderate-Severe pain & Pre PT Stop: 04/25/23 14:16 ECG Rate (beats per minute): 53 Additional Comments: SB, RBBB, LAFB (2) Diabetes mellitus Diabetes mellitus complication status: without complication Diabetes mellitus senior care insulin use: with middle or intermediate school principal use Diabetes mellitus type: type 2 Qualified Code(s): E11.9 - Type 2 diabetes mellitus without complications; Z79.4 - [facility] (current) use of insulin (3) HTN (hypertension) Hypertension type: essential hypertension Qualified Code(s): I10 - Essential (primary) hypertension
[2023-03-26] MEDS: oxyCODONE HCL IR 5 MG TAB (IMMEDIATE RELEASE) PO PRN ×2 (15:45→20:36)
[2023-03-26] MEDS ORDERED: LANTUS PER UNIT CHARGE SC ONE (16:30)
[2023-03-26] MEDS: INSULIN ASPART PER UNIT CHARGE SC SCH ×2 (17:24→20:28)
[2023-03-26] MEDS ORDERED: hydrALAZINE HCL 20 MG/ML VIAL IV STA (17:36)
--- NOTE | 2023-03-26 19:41 | Electrocardiogram Report ---
Test Reason : Blood Pressure : / mmHG Vent. Rate : 040 BPM Atrial Rate : 040 BPM P-R Int : 206 ms QRS Dur : 164 ms QT Int : 512 ms P-R-T Axes : 047 -60 -33 degrees QTc Int : 417 ms Marked sinus bradycardia with 1st degree AV block Left anterior fascicular block Right bundle branch block Abnormal ECG When compared with ECG of 30-MAY-2019 11:36, T wave inversion more evident in Inferior leads T wave inversion now evident in Anterior leads Confirmed by Winston Lewis ([id number]) on 03/26/2023 7:41:06 PM Referred By: Haroldo Alanis Confirmed By:Hank Lewis
[2023-03-26] MEDS: ceFAZolin 2000MG 2,000 MG/15 ML SYR IV SCH (19:55)
[2023-03-26] MEDS: ATORVASTATIN 10 MG TAB PO SCH (20:32)
[2023-03-26] MEDS: DONEPEZIL HCL 5 MG TAB PO SCH (20:32)
[2023-03-26] MEDS: ASPIRIN 81 MG ECTAB PO SCH (20:32)
[2023-03-26] MEDS: LOSARTAN POTASSIUM 25 MG TAB PO SCH (20:33)
[2023-03-26] MEDS: DOCUSATE SODIUM/SENNA 50/8.6MG TAB PO SCH (20:33)
[2023-03-26] MEDS: TAMSULOSIN HCL 0.4 MG CAP PO SCH (20:33)
[2023-03-26] MEDS ORDERED: COUGH DROP (SUGAR FREE) LOZ 24 LOZ/1 BOX BUCCAL PRN (22:05)
[2023-03-27] MEDS ORDERED: INSULIN ASPART PER UNIT CHARGE SC ONE (02:00)
[2023-03-27] MEDS: ceFAZolin 2000MG 2,000 MG/15 ML SYR IV SCH (03:38)
[2023-03-27] MEDS: SODIUM CHLORIDE 0.9% 1000ML 1,000 ML IV SCH (05:12)
[2023-03-27] MEDS: POLYETHYLENE (MIRALAX) 17 GM PACK PO SCH ×4 (05:57→23:22)
[2023-03-27 06:34] LABS: Basophils # (auto) 0.02 K/uL (0-0.2); Basophils % (auto) 0.2 %; Hemoglobin 11.2 g/dl (14.0-18.0); Immature Granulocytes # (auto) 0.04 K/uL (0.01-0.20); Immature Granulocytes % (auto) 0.4 %; Lymphocytes # (auto) 1.66 K/uL (1.2-3.4); Lymphocytes % (auto) 16.6 %; Mean Corpuscular Hemoglobin 30.6 pg (25.0-34.0); Mean Corpuscular Hgb Conc 32.9 g/dL (32.0-36.0); Mean Corpuscular Volume 92.9 fL (80.0-100.0); Mean Platelet Volume 9.8 fL (9.4-12.4); Monocytes # (auto) 1.16 K/uL (0.11-0.59); Monocytes % (auto) 11.6 %; Neutrophils # (auto) 7.14 K/uL (1.40-6.50); Neutrophils % (auto) 71.2 %; Platelet Count 206 K/uL (130-400); RDW Standard Deviation 43.8 fL (36.4-46.3); Red Blood Count 3.66 M/uL (4.70-6.10); White Blood Count 10.02 K/ul (4.8-10.8)
[2023-03-27 06:56] LABS: Calcium 8.3 mg/dl (8.6-10.3); Creatinine Clr Calc Pharmacy 70.8 ml/min; Est GFR (African American) 78.4 ml/min; Est GFR (Non-African American) 67.7 ml/min; Potassium 4.3 mmol/L (3.5-5.1)
--- NOTE | 2023-03-27 07:20 | Cardiology Consultation ---
Date of Consultation March 27, 2023 Assessment & Plan (1) Bradycardia: (2) HTN (hypertension): Plan IMPRESSION: 75-year-old male admitted for elective lumbar surgery. Patient with known history of chronic sinus bradycardia. Experienced hypertension and worsening bradycardia postop. Normally maintained on low-dose beta-hanna therapy with metoprolol succinate 25 mg daily-medication has since been held. Blood pressure is elevated postop but have improved likely with medication administration and pain control. EKG this morning showing sinus bradycardia (HR 50) with a first-degree AV block and right bundle branch block. Telemetry revealing sinus bradycardia 40s to 50s without pauses or significant heart block Echocardiogram pending. PLAN: Please refer to physician addendum for further information and for plan of care. Supervising Physician Co-Signing Physician Notes Attending Staff: Pt seen and evaluated with [facility] staff. Concur with observations and plans. 55 Minutes spent addressing challenge, educating and advancing daily plan of care. 77 yo man presenting for an elective spinal surgical intervention - post procedure - bradycardia - HR 30-40's. 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 Nonobstructive CAD (Cath 01/2019) DMII RYLAN not on CPAP Plans: * Reviewed telemetry - HR's 40-50 BPM = No pauses * ECHOcardiogram - Pending * Check TSH * No Lyme exposure known * Hold Beta Blockers * SBP @ goal * Continue Losartan 25 mg po per day * Continue HCTZ 12.5 mg po per day * Continue ASA 81 mg po per day Shlomo Ramos History of Present Illness Reason for Consultation: Bradycardia [facility]ing Physician[facility] Attending Physician: Haroldo Alanis DO History of Present Illness 77-year-old male initially admitted to [facility] for an elective lumbar procedure with Dr. Alanis. He underwent L3-L4 hardware removal and L2-L3 lumbar decompression and fusion. Following the procedure patient was bradycardic with sinus rates in the 30s to 40s. Blood pressure is elevated. Metoprolol was held. Echocardiogram pending. Patient is new to the [facility] cardiology practice and normally follows with [facility]. Last evaluation 01/2023. Per the patient he has a chronically low heart rate averaging in the 50s at home-asymptomatic. States that there has been other times he has been admitted to the hospital for various noncardiac reasons and had recurrences of bradycardia in the 30s to 40s. Last echo dated 06/2022 showed a normal LVEF of 55%, no wall motion abnormalities or significant valvular disease. Aortic root measuring at 4.6 cm at the sinuses. Outpatient records suggest that cardiac medications include: metoprolol s uccinate 25 mg daily, hydrochlorothiazide 12.5 mg daily, losartan 25 mg daily, aspirin 81 mg daily Upon entrance to the room patient was resting comfortably in bed. States that his postop pain is now well controlled. He has no concerns regarding chest pain, shortness of breath, palpitations, lightheadedness/dizziness. He lives independently at home in a split-level house. He is able to go up and down stairs without any difficulty. Denies any functional decline recently. Denies any episodes of syncope. No known recent tick exposures. Telemetry: Sinus bradycardia with an IVCD, 50 bpm. No pauses or blocks. Past medical history: * Hypertension * Hyperlipidemia * Questionable episode of paroxysmal atrial fibrillation on EKG 07/2010-thought to be sinus with frequent PACs. No recurrence of A-fib per Holter 07/22/2010 * Nonobstructive CAD per cardiac cath 01/2019, noncritical epicardial coronary artery disease with calcification of the left main/LAD/left circumflex, LAD/mid 40 to 50%, RCA/distal 20% * Enlarged aortic root, 4.6 cm, ascending aorta 4.2 cm * Type 2 diabetes, insulin-dependent * Cognitive impairment * BPH * RYLAN * History of pancreatitis Allergies Allergy/AdvReac Type Severity Reaction Status Date / Time erythromycin base AdvReac Intermediate N/V, Verified 03/26/23 10:51 hematuria shellfish derived AdvReac Unknown severe Verified 03/26/23 10:51 nausea Home Medications Medication Instructions Recorded Confirmed Type aspirin 81 mg tablet,delayed 81 mg PO HS 06/10/18 03/26/23 History release (Aspir-) insulin aspart U-100 100 unit/mL 6 - 12 unit subcut TIDM 06/10/18 03/26/23 History (3 mL) subcutaneous pen (Novolog FlexPen U-100 Insulin aspart) insulin detemir U-100 100 unit/mL 14 unit subcut QPM 06/10/18 03/26/23 History (3 mL) subcutaneous pen (Levemir FlexTouch U-100 Insulin) metformin 1,000 mg tablet 1,000 mg PO BIDM 06/10/18 03/26/23 History atorvastatin 10 mg tablet (Lipitor) 10 mg PO HS 03/30/20 03/26/23 History hydrochlorothiazide 12.5 mg tablet 12.5 mg PO QAM 03/30/20 03/26/23 History donepezil 5 mg tablet (Aricept) 5 mg PO HS 03/01/23 03/26/23 History losartan 25 mg tablet 25 mg PO HS 03/01/23 03/26/23 History metoprolol succinate 25 mg 25 mg PO QAM 03/01/23 03/26/23 History tablet,extended release 24 hr (Toprol XL) tamsulosin 0.4 mg capsule (Flomax) 0.4 mg PO HS 03/01/23 03/26/23 History oxycodone 5 mg tablet 5 mg PO Q6H PRN pain #30 tabs 03/27/23 Rx tramadol 50 mg tablet 50 mg PO Q6H PRN pain, moderate 03/27/23 Rx #30 tabs Patient History Medical History Aortic aneurysm Cardiac MRA 07/2022: Stable borderline aneurysmal dilatation of the ascending aorta, arch, and descending segment with mild ectasia of the aortic root Under surveillance by cardiology Bifascicular block RBBB, 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 EKG which cardiology reviewed and felt was "consistent with previous studies" Degenerative disc disease cervical/lumbar with UE/LE radiculopathy Diabetes mellitus, type 2 IDDM Dyslipidemia Hiatal hernia History of atrial fibrillation Possible 2009 Follows with [facility], taking ASA/beta hanna HTN (hypertension) Hx of skin cancer, basal cell Hyperlipidemia Hypertension Neuropathy of both feet results in difficulty with ambulation Osteoarthritis Sleep apnea No device (did not tolerate CPAP), has had UPPP Spinal stenosis, lumbar region, with neurogenic claudication (05/01/14) Surgical History H/O left cataract extraction H/O right cataract extraction History of bunionectomy Right History of cardiac cath 2019- no stents History of eye surgery b/l UE eyelid "lift" + eye fat pad excision History of hip surgery to repair Right hip muscle with a tendon transfer (2020) History of hydrocelectomy History of lumbar fusion Hardware removal, L3-L4 decompression/fusion: 06/21/18: Grade 1 view, MAC#3, ETT 8.0 at [facility] History of reverse total replacement of left shoulder joint Left reverse TSA (04/28/20): Grade view 1, MAC#3, ETT 7.5 + PNB at [facility] History of reverse total replacement of right shoulder joint History of tonsillectomy and adenoidectomy + uvula removed (UPPP) Hx of bilateral cataract extraction Hx of colonoscopy Hx of LASIK BILATERAL EYES Hx of nasal septoplasty Hx of rotator cuff surgery x3 left and x1 right Hx of thumb surgery x2 (steel saumya implanted) Hx of total hip arthroplasty RIGHT Hx of vasectomy S/p bilateral blepharoplasty upper and lower lift (2 seperate surgeries) S/P epidural steroid injection S/P revision of total hip x2 (03/2021 & 07/2022) right hip revision S/P tendon repair transposition S/P trigger finger release thumb Status post hammertoe correction Family History Mother Family history of diabetes mellitus Grandfather (Paternal) Family history of diabetes mellitus Grandmother (Maternal) Family history of diabetes mellitus Other No family history of adverse response to anesthesia Social History Smoking Status: Never smoker Second Hand Exposure: No; Do You Dip or Chew Tobacco: No; Tobacco Cessation Education Requested by Patient: No Hx Alcohol Use: Yes Alcohol type: beer and hard liquor Hx Substance Use: No Preferred Language: Tristanian Communication Ability: Effective Registered Radiation Therapist Required: No Beliefs That Will Affect Care: None marital status: Current Living Situation: Spouse Other Information That Helps Us Care for You: No Feels Safe at Home: Yes Safety Concerns: Feels Safe At This Time Assistive Devices: Glasses Assistive Devices Comment: front upper teeth implants Review of Systems Review of Systems: All systems reviewed & are unremarkable except as noted in HPI & below Physical Exam Physical Exam: Overweight No elevation in JVP S1S2 Soft 2/6 systolic murmur NO AI, NO MR CTA B on anterior exam + BS Ext warm - well perfused Results & Data Vital Signs (Past 12 Hours) Vital Signs Temp Pulse Pulse Resp BP BP Pulse Ox 03/27/23 03:12 36.6 C 60 18 126/56 L 94 03/26/23 22:00 49 L 03/26/23 23:03 35.6 C L 69 18 148/60 H 93 03/26/23 19:43 52 L 03/26/23 20:05 36.4 C L 50 L 18 174/77 H 96 03/26/23 20:27 149/73 H O2 Del Method 03/27/23 03:12 Room Air 03/26/23 22:00 03/26/23 23:03 Room Air 03/26/23 19:43 03/26/23 20:05 Room Air 03/26/23 20:27 Laboratory Results Cardiac Enzymes 03/26/23 03/26/23 03/27/23 Range/Units 18:33 23:48 05:51 Troponin I High Sens 7.9 7.4 6.8 (0-20) pg/ml CBC 03/27/23 Range/Units 05:51 WBC 10.02 (4.8-10.8) K/ul RBC 3.66 L (4.70-6.10) M/uL Hgb 11.2 L (14.0-18.0) g/dl Hct 34.0 L (42.0-52.0) % Plt Count 206 (130-400) K/uL Neut # (Auto) 7.14 H (1.40-6.50) K/uL Lymph # (Auto) 1.66 (1.2-3.4) K/uL [place] # (Auto) 1.16 H (0.11-0.59) K/uL Eos # (Auto) 0.00 (0-0.50) K/uL Baso # (Auto) 0.02 (0-0.2) K/uL Comprehensive Metabolic Panel 03/27/23 Range/Units 05:51 Sodium 137 (136-145) mmol/L Potassium 4.3 (3.5-5.1) mmol/L Chloride 106 (98-107) mmol/L Carbon Dioxide 25 (21-32) mmol/L BUN 22 (6-23) mg/dl Creatinine 1.05 (0.6-1.4) mg/dl Glucose 192 H (70-99(Fasting)) mg/dl Calcium 8.3 L (8.6-10.3) mg/dl Intake and Output 03/26/23 03/27/23 03/27/23 22:59 06:59 14:59 Intake Total 1100 / 4677.5 1777.5 / 4677.5 Output Total 50 / 350 30 / 350 Balance 1050 / 4327.5 1747.5 / 4327.5 Intake: IV 1100 / 3027.5 927.5 / 3027.5 Acetaminophen 1,000 mg In 100 100 / 100 ml @ 400 mls/hr IV Q8H PRN Rx#: [id number] Sodium Chloride 0.9% 1000ML 1, 1000 / 1927.5 927.5 / 1927.5 000 ml @ 150 mls/hr IV .Q6H40M KATE Rx#:[id number] Oral 850 / 850 Output: Drain Output 50 / 200 30 / 200 Back CHERRI 50 / 200 30 / 200 Medications Administered Current Inpatient Medications Acetaminophen (Acetaminophen 500 Mg Tab) 1,000 mg PO Q8H PRN PRN Reason: MILD Pain Scale 1,2,3 & Pre PT Stop: 04/25/23 14:16 Al Hydrox/Mg Hydrox/Simethicone (Aluminum/Magnesium Susp 30 Ml Udc) 30 ml PO Q6H PRN PRN Reason: Dyspepsia Stop: 04/25/23 14:16 Aspirin (Aspirin 81 Mg Ectab) 81 mg PO HS KATE Stop: 04/25/23 20:59 Last Admin: 03/26/23 20:32 Dose: 81 mg Atorvastatin Calcium (Atorvastatin 10 Mg Tab) 10 mg PO HS KATE Stop: 04/25/23 20:59 Last Admin: 03/26/23 20:32 Dose: 10 mg Bisacodyl (Bisacodyl 10 Mg Supp) 10 mg UT DAILY PRN PRN Reason: Constipation Stop: 04/25/23 14:16 Dextrose (Dextrose 50% 50 Ml Syringe) 25 - 50 ml IV UD PRN; Protocol PRN Reason: Hypoglycemia Protocol Stop: 04/25/23 14:59 Diphenhydramine HCl (Diphenhydramine Capsule 25 Mg Cap) 25 mg PO Q6H PRN PRN Reason: Allergic Rhinitis/Insomnia Stop: 04/25/23 14:16 Donepezil HCl (Donepezil Hcl 5 Mg Tab) 5 mg PO HS [facility] Stop: 04/25/23 20:59 Last Admin: 03/26/23 20:32 Dose: 5 mg Famotidine (Famotidine 20 Mg Tab) 20 mg PO Q12H PRN PRN Reason: Dyspepsia Stop: 04/25/23 14:16 Glucagon (Glucagon For Inj 1 Mg Vial) 1 mg IM UD PRN; Protocol PRN Reason: Hypoglycemia Protocol Stop: 04/25/23 14:59 Glucose (Glucose 40% Gel 15 Gm Tube) 15 - 30 gm PO UD PRN; Protocol PRN Reason: Hypoglycemia Protocol Stop: 04/25/23 14:59 Glucose (Glucose 10 Tab/Tube) 4 - 8 tab PO UD PRN; Protocol PRN Reason: Hypoglycemia Protocol Stop: 04/25/23 14:59 Hydrochlorothiazide (Hydrochlorothiazide 25 Mg Tab) 12.5 mg PO QAM [facility] Stop: 04/26/23 08:59 Hydromorphone HCl (Hydromorphone Inj 0.5 Mg/0.5 Ml Syr) 0.5 mg IV Q3H PRN PRN Reason: MODERATE Pain (Scale 4,5,6) & Pre PT Stop: 04/09/23 14:16 Hydromorphone HCl (Hydromorphone Inj 1 Mg/Ml Syringe) 1 mg IV Q3H PRN PRN Reason: SEVERE Pain (Scale 7,8,9,10) Stop: 04/09/23 14:16 Last Admin: 03/26/23 19:55 Dose: 1 mg Hydroxyzine HCl (Hydroxyzine Hcl 25 Mg Tab) 25 mg PO Q8H PRN PRN Reason: Anxiety Stop: 04/25/23 14:16 Acetaminophen (Ofirmev) 1,000 mg in 100 mls @ 400 mls/hr IV Q8H PRN PRN Reason: Pain Rating 1-3 & Pre PT Stop: 03/27/23 14:17 Last Infusion: 03/26/23 16:26 Dose: Infused Sodium Chloride (Nss 1000ml) 1,000 mls @ 150 mls/hr IV .Q6H40M [facility] Stop: 04/25/23 14:16 Last Infusion: 03/27/23 05:12 Dose: Infused Promethazine HCl 12.5 mg/ (Sodium Chloride) 50.5 mls @ 202 mls/hr IV Q6H PRN PRN Reason: Nausea &/or Vomiting Stop: 04/25/23 14:16 Influenza Virus Vaccine Quadrival (Do Not Administer Flu Vaccine) 1 each N/A PRN PRN PRN Reason: Notification Stop: 04/25/23 14:16 Insulin Aspart (Insulin Aspart Per Unit Charge) 0 units SC [facility]; Protocol Stop: 04/25/23 16:29 Last Admin: 03/26/23 20:28 Dose: 3 units Insulin Glargine (Lantus Per Unit Charge) 15 units SC DAILY@1700 [facility] Stop: 04/26/23 16:59 Lorazepam (Lorazepam 0.5 Mg Tab) 0.5 mg PO Q8H PRN PRN Reason: Sedation/Anxiety Stop: 04/25/23 14:16 Lorazepam (Lorazepam 2 Mg/1 Ml Vial) 0.5 mg IV Q8H PRN PRN Reason: Sedation/Anxiety Stop: 04/25/23 14:16 Losartan Potassium (Losartan Potassium 25 Mg Tab) 25 mg PO [facility] Stop: 04/25/23 20:59 Last Admin: 03/26/23 20:33 Dose: 25 mg Magnesium Hydroxide (Magnesium Hydroxide Susp 30 Ml Udc) 30 ml PO Q24H PRN PRN Reason: Constipation Stop: 04/25/23 14:16 Menthol (Cough Drop (Sugar Free) Rosaura 24 Rosaura/1 Box) 1 rosaura BUCCAL NOW PRN PRN Reason: Sore Throat Stop: 04/25/23 22:04 Metoclopramide HCl (Metoclopramide Hcl Inj 5 Mg/Ml 2 Ml Vial) 10 mg IV Q6H PRN PRN Reason: Nausea &/or Vomiting Stop: 04/25/23 14:16 Miscellaneous (Carbohydrates For Hypoglycemia ) 15 - 30 gm PO UD PRN PRN Reason: Hypoglycemia Treatment Stop: 04/25/23 14:59 Miscellaneous Information (Pharmacy Glycemic Mgmt Consult) 1 each N/A UD PRN PRN Reason: Consult Stop: 04/25/23 14:16 Naloxone HCl (Naloxone Hcl 0.4 Mg/1 Ml Vial/Carp) 0.1 mg IV Q5M PRN PRN Reason: Oversedation/Resp depression Stop: 04/25/23 14:16 Ondansetron HCl (Ondansetron Inj 2 Mg/Ml 2 Ml Vial) 4 mg IV Q6H PRN PRN Reason: Nausea &/or Vomiting Stop: 04/25/23 14:16 Ondansetron HCl (Ondansetron 4 Mg Od Tab) 4 mg PO Q6H PRN PRN Reason: Nausea Stop: 04/25/23 14:16 Oxycodone HCl (Oxycodone Hcl Ir 5 Mg Tab (Immediate Release)) 5 - 10 mg PO Q4H PRN PRN Reason: Pain & Pre PT Stop: 04/09/23 14:16 Last Admin: 03/26/23 20:36 Dose: 10 mg Pneumococcal Polyvalent Vaccine (Do Not Administer Pneumococcal Vaccine) 1 each N/A PRN PRN PRN Reason: Notification Stop: 04/25/23 14:16 Polyethylene Glycol (Polyethylene (Miralax) 17 Gm Pack) 17 gm PO Q6 KATE Stop: 04/26/23 05:59 Last Admin: 03/27/23 05:57 Dose: 17 gm Senna/Docusate Sodium (Docusate Sodium/Senna 50/8.6mg Tab) 2 tab PO HS KATE Stop: 04/25/23 20:59 Last Admin: 03/26/23 20:33 Dose: 2 tab Sodium Biphosphate/Sodium Phosphate (Sod Phosphate/Sod Biphosphate Enema 132 Ml Btl) 132 ml UT ONE PRN PRN Reason: Constipation Stop: 04/25/23 14:16 Tamsulosin HCl (Tamsulosin Hcl 0.4 Mg Cap) 0.4 mg PO HS KATE Stop: 04/25/23 20:59 Last Admin: 03/26/23 20:33 Dose: 0.4 mg Tramadol HCl (Tramadol Hcl 50 Mg Tablet) 50 - 100 mg PO Q4H PRN PRN Reason: Moderate-Severe pain & Pre PT Stop: 04/25/23 14:16 Last Admin: 03/26/23 22:58 Dose: 100 mg (2) HTN (hypertension) Hypertension type: essential hypertension Qualified Code(s): I10 - Essential (primary) hypertension
[2023-03-27 08:51] LABS: Magnesium 1.8 mg/dl (1.7-2.4)
[2023-03-27] MEDS: hydroCHLOROthiazide 25 MG TAB PO SCH (08:54)
[2023-03-27] MEDS: INSULIN ASPART PER UNIT CHARGE SC SCH ×4 (08:56→21:13)
[2023-03-27] MEDS ORDERED: METOPROLOL SUCC 25MG EXT REL TAB PO SCH (09:00)
--- NOTE | 2023-03-27 09:39 | Hospitalist Progress Note ---
Date of Service March 27, 2023 Assessment & Plan (1) Spinal stenosis, lumbar region, with neurogenic claudication: (2) Diabetes mellitus: (3) HTN (hypertension): (4) Dyslipidemia: Plan 77-year-old male with significant past medical history of HTN, HLD, insulin- dependent T2DM, cognitive impairment and BPH presents for elective lumbar procedure by Dr. Alanis. S/P L3-L4 hardware removal, L2-L3 lumbar decompression fusion POD #1 EBL 150ml Pain is well controlled Activity per ortho Pre op 14.4. Hb is 11.2 today. Possible acute blood loss anemia + dilutional. Monitor Insulin dependent type 2 diabetes mellitus Hba1c 02/08/23 6.8 Continue insulin regimen per glycemic pharmacis Hypertension Better controlled today Continue losartan, hctz Sinus bradycardia HR was down to 30s yesterday post op. HR normally in 50s EKG noted sinus bradycardia, RBBB and T wave inversions in inferior leads He was asymptomatic at the time Troponin trend negative Continue to hold metoprolol succinate 25 mg daily for now Follow up Cardiology eval Pt follows [facility] cardiology and pre op note was reviewed Last echo 06/2022 EF 55% normal RV size and systolic function, aortic root 4.6cm - followed with serial MRAs, last done 07/2022 TTE today noted mild conc LVH, EF 60-65%, mild AV sclerosis without significant stenosis, mild pulm HTN with PASP of 41mmHg, aortic root mildly dil at 4.2cm, prox asc aorta mod dilated at 4.6cm HLD Continue statin BPH Continue flomax DVT ppx: SCDS FULL CODE PCP: Silvestre Swann PA I spent a total of 50 minutes coordinating, documenting and providing care for this patient excluding time spent in performance of separately billed services Admission and Anticipated Discharge Date Admission Date: March 26, 2023 Subjective Patient seen and examined Reports only soreness at surgical site Reports radiculopathic low back pain radiating to RLE prior to surgery is resolved Denied any headache, dizziness, palpitation, chest pain, cough, SOB Reports some sorethroat which is improveing Denied nausea, vomiting, abd pain, dysuria, freq Physical Exam Constitutional: + well hydrated; no acute distress Eyes: PERRL, conjunctivae normal, anicteric sclerae ENMT: external ear and nose normal, oropharynx normal Respiratory: normal respiratory effort, lungs clear to auscultation Cardiovascular: Rate/Rhythm: regular rhythm and + bradycardic S1 S2 Gastrointestinal (Abdomen): normal bowel sounds, soft, nontender, no hepatosplenomegaly Musculoskeletal: Clean dressing over surgical site with drain in situ No pedal edema Neurologic: PERRL, EOMI, accommodation nl, no face palsy, no dysarthria Psychiatric: A+Ox3, euthymic affect Results & Data Results & Data Vital Signs (Past 12 Hours) Vital Signs Temp Pulse Pulse Resp BP BP Pulse Ox 03/27/23 07:57 36.5 C 49 L 16 126/56 L 96 03/27/23 07:14 54 L 03/27/23 03:12 36.6 C 60 18 126/56 L 94 03/26/23 22:00 49 L 03/26/23 23:03 35.6 C L 69 18 148/60 H 93 O2 Del Method 03/27/23 07:57 Room Air 03/27/23 07:14 03/27/23 03:12 Room Air 03/26/23 22:00 03/26/23 23:03 Room Air Laboratory Results Abnormal lab results 03/26/23 03/26/23 03/26/23 Range/Units 12:55 17:06 20:18 RBC (4.70-6.10) M/uL Hgb (14.0-18.0) g/dl Hct (42.0-52.0) % Neut # (Auto) (1.40-6.50) K/uL Cross # (Auto) (0.11-0.59) K/uL BUN/Creatinine Ratio (10-20) Glucose (70-99(Fasting)) mg/dl POC Glucose 164 H 200 H 183 H (70-99) mg/dl Calcium (8.6-10.3) mg/dl 03/27/23 03/27/23 03/27/23 Range/Units 02:32 05:51 05:51 RBC 3.66 L (4.70-6.10) M/uL Hgb 11.2 L (14.0-18.0) g/dl Hct 34.0 L (42.0-52.0) % Neut # (Auto) 7.14 H (1.40-6.50) K/uL Cross # (Auto) 1.16 H (0.11-0.59) K/uL BUN/Creatinine Ratio 21.0 H (10-20) Glucose 192 H (70-99(Fasting)) mg/dl POC Glucose 212 H (70-99) mg/dl Calcium 8.3 L (8.6-10.3) mg/dl 03/27/23 03/27/23 Range/Units 07:55 11:24 RBC (4.70-6.10) M/uL Hgb (14.0-18.0) g/dl Hct (42.0-52.0) % Neut # (Auto) (1.40-6.50) K/uL Cross # (Auto) (0.11-0.59) K/uL BUN/Creatinine Ratio (10-20) Glucose (70-99(Fasting)) mg/dl POC Glucose 189 H 243 H (70-99) mg/dl Calcium (8.6-10.3) mg/dl (2) Diabetes mellitus Diabetes mellitus type: type 2 Diabetes mellitus long-term insulin use: with long-term use Diabetes mellitus complication status: without complication Qualified Code(s): E11.9 - Type 2 diabetes mellitus without complications; Z79.4 - long-term (current) use of insulin (3) HTN (hypertension) Hypertension type: essential hypertension Qualified Code(s): I10 - Essential (primary) hypertension
--- NOTE | 2023-03-27 10:10 | Orthopedic Progress Note ---
Date of Service March 27, 2023 Assessment & Plan (1) Spinal stenosis, lumbar region, with neurogenic claudication: Plan: This time initiate physical therapy monitor his CHERRI output hopefully discharge home in next few days. Admission and Anticipated Discharge Date Admission Date: March 26, 2023 Subjective Back pain controlled leg pain markedly improved Physical Exam Physical Exam: Patient is in the chair at the bedside. Is comfortable. Resection strength testing. Results & Data Vital Signs (Past 12 Hours) Vital Signs Temp Pulse Pulse Resp BP BP Pulse Ox 03/27/23 07:57 36.5 C 49 L 16 126/56 L 96 03/27/23 07:14 54 L 03/27/23 03:12 36.6 C 60 18 126/56 L 94 03/26/23 23:03 35.6 C L 69 18 148/60 H 93 O2 Del Method 03/27/23 07:57 Room Air 03/27/23 07:14 03/27/23 03:12 Room Air 03/26/23 23:03 Room Air
--- NOTE | 2023-03-27 11:55 | Pharmacy Report ---
Pharmacy Glycemic Short Note 2 - Date of Service March 27, 2023 - Glycemic Short BSG Results (Last 24 hours): 03/26/23 03/26/23 03/26/23 12:55 17:06 20:18 Glucose POC Glucose 164 H 200 H 183 H 03/27/23 03/27/23 03/27/23 02:32 05:51 07:55 Glucose 192 H POC Glucose 212 H 189 H 03/27/23 11:24 Glucose POC Glucose 243 H OUTPATIENT ANTIDIABETIC REGIMEN: * Levemir 14 units SC PM * Novolog 6-12 units SC AC * Metformin 1000 mg PO BIDM * HbA1c: 6.8% (02/08/23) ASSESSMENT: 03/27: * BSGs [phone]/dL the last 24h. Received 18 units of basal and 11 units of bolus insulin yesterday. * Tolerating diet, POD #1. * Continue Lantus 18 units for today. Fasting BSG was slightly elevated this AM, however steroids not continued. Re-evaluate basal in AM. Novolog tightened for elevated prandial BSGs. 03/26: * 77 yo M admitted on 03/26/23 post-operatively following a L2-L3 decompression and fusion with Dr Alanis. Pharmacy has been consulted to assist with inpatient glycemic management. Patient is a controlled Type 2 diabetic as an outpatient. Please refer to outpatient regimen and most recent HbA1c above. * Did receive 4 mg of IV dexamethasone sheng-operatively. No ongoing steroid orders. Ordered a type 2 diet, unsure if tolerating at this time. Will check with RN. * Pre-op BSG was 148 mg/dL. Post-op BSG was 164 mg/dL. * Will give a one time dose of Lantus at 30% of an increase from home dose given steroids. Will administer at dinner rather than bedtime to account for steroids. * Normal target range. Novolog will be started based on weight/stress of 3. Will add a single overnight check for the first post-op night only. PLAN FOR INPATIENT GLYCEMIC CONTROL: * Hold outpatient oral diabetes medications * Basal insulin * Lantus 18 units SC with dinner * Bolus insulin * NovoLog per scale ACHS or Q6hrs while NPO * Goal Range: Low 110 mg/dL - High 140 mg/dL * Correction Factor: 15 mg/dL/unit * Nutritional / Prandial insulin per carb ratio of 1 unit per 5 grams CHO consumed
--- NOTE | 2023-03-27 11:56 | Electrocardiogram Report ---
Test Reason : Blood Pressure : / mmHG Vent. Rate : 037 BPM Atrial Rate : 037 BPM P-R Int : 204 ms QRS Dur : 168 ms QT Int : 542 ms P-R-T Axes : 000 246 216 degrees QTc Int : 425 ms Marked sinus bradycardia Right bundle branch block Possible Anterolateral infarct , age undetermined Marked T wave abnormality, consider inferior ischemia Left anterior fascicular block Abnormal ECG Confirmed by Winston Lewis ([id number] on 03/27/2023 11:56:15 AM Referred By: Haroldo Alanis Confirmed By:Hank Lewis
--- NOTE | 2023-03-27 12:05 | Electrocardiogram Report ---
Test Reason : Blood Pressure : / mmHG Vent. Rate : 050 BPM Atrial Rate : 050 BPM P-R Int : 212 ms QRS Dur : 166 ms QT Int : 472 ms P-R-T Axes : 021 -74 -17 degrees QTc Int : 430 ms Sinus bradycardia with 1st degree A-V block Left anterior fascicular block Right bundle branch block Poor R wave progression, consider anterior [place] vs. lead placement vs. LVH Abnormal ECG Confirmed by Winston Lewis ([id number]) on 03/27/2023 12:04:53 PM Referred By: Haroldo Alanis Confirmed By:Hank Lewis
[2023-03-27] MEDS ORDERED: LANTUS PER UNIT CHARGE SC SCH ×2 (17:00)
[2023-03-27] MEDS: oxyCODONE HCL IR 5 MG TAB (IMMEDIATE RELEASE) PO PRN (18:33)
[2023-03-27] MEDS: ASPIRIN 81 MG ECTAB PO SCH (21:12)
[2023-03-27] MEDS: TAMSULOSIN HCL 0.4 MG CAP PO SCH (21:12)
[2023-03-27] MEDS: DONEPEZIL HCL 5 MG TAB PO SCH (21:12)
[2023-03-27] MEDS: LOSARTAN POTASSIUM 25 MG TAB PO SCH (21:12)
[2023-03-27] MEDS: ATORVASTATIN 10 MG TAB PO SCH (21:12)
[2023-03-27] MEDS: DOCUSATE SODIUM/SENNA 50/8.6MG TAB PO SCH (21:13)
[2023-03-27] MEDS: HYDROmorphone INJ 1 MG/ML SYRINGE IV PRN (23:14)
[2023-03-28] MEDS: HYDROmorphone INJ 1 MG/ML SYRINGE IV PRN (05:05)
[2023-03-28] MEDS: POLYETHYLENE (MIRALAX) 17 GM PACK PO SCH ×4 (05:14→23:03)
[2023-03-28 06:55] LABS: Hematocrit (blood only) 33.9 % (42.0-52.0); Hemoglobin 11.5 g/dl (14.0-18.0); Mean Corpuscular Hemoglobin 31.3 pg (25.0-34.0); Mean Corpuscular Hgb Conc 33.9 g/dL (32.0-36.0); Mean Corpuscular Volume 92.4 fL (80.0-100.0); Mean Platelet Volume 9.6 fL (9.4-12.4); Platelet Count 188 K/uL (130-400); Red Blood Count 3.67 M/uL (4.70-6.10); White Blood Count 8.88 K/ul (4.8-10.8)
[2023-03-28 07:19] LABS: Calcium 8.6 mg/dl (8.6-10.3); Creatinine Clr Calc Pharmacy 69.2 ml/min; Est GFR (African American) 77.5 ml/min; Est GFR (Non-African American) 66.9 ml/min; Magnesium 1.9 mg/dl (1.7-2.4); Phosphorus 2.3 mg/dl (2.5-4.9); Potassium 3.9 mmol/L (3.5-5.1)
--- NOTE | 2023-03-28 07:56 | Cardiology Progress Note ---
Date of Service March 28, 2023 Assessment & Plan (1) Bradycardia: (2) HTN (hypertension): Plan Attending Staff: Pt seen and examined with [facility] staff. Concur with observations and plans. %1 min spent addressing challenges, educating and advancing daily plan of care 77 yo man presenting for an elective spinal surgical intervention - post procedure - bradycardia - HR 30-40's. 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 Nonobstructive CAD (Cath 01/2019) DMII RYLAN not on CPAP Plans: * Reviewed telemetry - HR's 40-50 BPM initially; No pauses * ECHOcardiogram - LVEF 60-65%, No WMA, Mild Aortic Sclerosis sans stenosis; Mild PH. Aortic Root 4.2 cm, Ascending Aorta 4.6 (followed by primary cardiology) * No major change in comparing ECHO results re: Aortic diameter * TSH - 1.2 * No Lyme exposure known * Beta Blockers - HELD * HR noted to increase over the past 24 hrs - on telemetry HR 60-70's * May reconsider Beta Maeve restart as an oupt - indication appears to be for aortic dilation * SBP @ goal * Continue Losartan 25 mg po per day * Continue HCTZ 12.5 mg po per day * Continue ASA 81 mg po per day * Replete K+ (DONE) * Replete Mag (DONE) * Please arrange for f/u with [facility] - [place] [facility] * Please call with any additional questions or concerns Shlomo Ramos Admission and Anticipated Discharge Date Admission Date: March 26, 2023 Subjective 03/28/2023: Upon entrance into the room patient resting in the chair. at bedside. Main concern regarding postop back discomfort. No cardiac concerns, denies chest pain shortness of breath palpitations lightheadedness or dizziness. Telemetry overnight revealed sinus rhythm with heart rates ranging in the 50s to 70s. No concerning pauses or dysrhythmias. Events Overnight: * HR 50-70's * No pauses Review of Systems Review of Systems: All systems reviewed & are unremarkable except as noted in HPI & below Physical Exam Physical Exam: Overweight man - NAD No elevation in JVP S1S2 Soft 2/6 systolic murmur CTA B + BS No C/C/E Warm and well perfused Results & Data Vital Signs (Past 12 Hours) Vital Signs Temp Pulse Pulse Resp BP BP Pulse Ox 03/28/23 07:27 37.0 C 73 18 133/75 94 03/28/23 03:02 36.4 C L 60 18 139/70 90 03/27/23 22:00 55 L 03/27/23 23:43 37.1 C 54 L 18 156/71 H 99 03/27/23 19:56 36.7 C 62 18 156/66 H 97 O2 Del Method 03/28/23 07:27 Room Air 03/28/23 03:02 Room Air 03/27/23 22:00 03/27/23 23:43 Room Air 03/27/23 19:56 Room Air Laboratory Results CBC 03/28/23 Range/Units 06:29 WBC 8.88 (4.8-10.8) K/ul RBC 3.67 L (4.70-6.10) M/uL Hgb 11.5 L (14.0-18.0) g/dl Hct 33.9 L (42.0-52.0) % Plt Count 188 (130-400) K/uL Comprehensive Metabolic Panel 03/28/23 Range/Units 06:29 Sodium 135 L (136-145) mmol/L Potassium 3.9 (3.5-5.1) mmol/L Chloride 103 (98-107) mmol/L Carbon Dioxide 26 (21-32) mmol/L BUN 17 (6-23) mg/dl Creatinine 1.06 (0.6-1.4) mg/dl Glucose 170 H (70-99(Fasting)) mg/dl Calcium 8.6 (8.6-10.3) mg/dl Intake and Output 03/27/23 03/28/23 03/28/23 22:59 06:59 14:59 Intake Total 120 / 1220 100 / 1220 Output Total 30 / 50 20 / 50 Balance 90 / 1170 80 / 1170 Intake: Oral 120 / 1220 100 / 1220 Output: Drain Output 30 / 50 20 / 50 Back CHERRI 30 50 20 / 50 Other: # Unmeasured Voids 1 Weight 96.7 kg Weight Measurement [facility]ations Administered Current Inpatient Medications Acetaminophen (Acetaminophen 500 Mg Tab) 1,000 mg PO Q8H PRN PRN Reason: MILD Pain Scale 1,2,3 & Pre PT Stop: 04/25/23 14:16 Al Hydrox/Mg Hydrox/Simethicone (Aluminum/Magnesium Susp 30 Ml Udc) 30 ml PO Q6H PRN PRN Reason: Dyspepsia Stop: 04/25/23 14:16 Aspirin (Aspirin 81 Mg Ectab) 81 mg PO [facility] Stop: 04/25/23 20:59 Last Admin: 03/27/23 21:12 Dose: 81 mg Atorvastatin Calcium (Atorvastatin 10 Mg Tab) 10 mg PO HS [facility] Stop: 04/25/23 20:59 Last Admin: 03/27/23 21:12 Dose: 10 mg Bisacodyl (Bisacodyl 10 Mg Supp) 10 mg MI DAILY PRN PRN Reason: Constipation Stop: 04/25/23 14:16 Dextrose (Dextrose 50% 50 Ml Syringe) 25 - 50 ml IV UD PRN; Protocol PRN Reason: Hypoglycemia Protocol Stop: 04/25/23 14:59 Diphenhydramine HCl (Diphenhydramine Capsule 25 Mg Cap) 25 mg PO Q6H PRN PRN Reason: Allergic Rhinitis/Insomnia Stop: 04/25/23 14:16 Donepezil HCl (Donepezil Hcl 5 Mg Tab) 5 mg PO [facility] Stop: 04/25/23 20:59 Last Admin: 03/27/23 21:12 Dose: 5 mg Famotidine (Famotidine 20 Mg Tab) 20 mg PO Q12H PRN PRN Reason: Dyspepsia Stop: 04/25/23 14:16 Glucagon (Glucagon For Inj 1 Mg Vial) 1 mg IM UD PRN; Protocol PRN Reason: Hypoglycemia Protocol Stop: 04/25/23 14:59 Glucose (Glucose 40% Gel 15 Gm Tube) 15 - 30 gm PO UD PRN; Protocol PRN Reason: Hypoglycemia Protocol Stop: 04/25/23 14:59 Glucose (Glucose 10 Tab/Tube) 4 - 8 tab PO UD PRN; Protocol PRN Reason: Hypoglycemia Protocol Stop: 04/25/23 14:59 Hydrochlorothiazide (Hydrochlorothiazide 25 Mg Tab) [facility] [place]: 04/26/23 08:59 Last Admin: 03/27/23 08:54 Dose: 12.5 mg Hydromorphone HCl (Hydromorphone Inj 0.5 Mg/0.5 Ml Syr) 0.5 mg IV Q3H PRN PRN Reason: MODERATE Pain (Scale 4,5,6) & Pre PT Stop: 04/09/23 14:16 Hydromorphone HCl (Hydromorphone Inj 1 Mg/Ml Syringe) 1 mg IV Q3H PRN PRN Reason: SEVERE Pain (Scale 7,8,9,10) Stop: 04/09/23 14:16 Last Admin: 03/28/23 05:05 Dose: 1 mg Hydroxyzine HCl (Hydroxyzine Hcl 25 Mg Tab) 25 mg PO Q8H PRN PRN Reason: Anxiety Stop: 04/25/23 14:16 Promethazine HCl 12.5 mg/ (Sodium Chloride) 50.5 mls @ 202 mls/hr IV Q6H PRN PRN Reason: Nausea &/or Vomiting Stop: 04/25/23 14:16 Influenza Virus Vaccine Quadrival (Do Not Administer Flu Vaccine) 1 each N/A PRN PRN PRN Reason: Notification Stop: 04/25/23 14:16 Insulin Aspart (Insulin Aspart Per Unit Charge) 0 units SC [facility]; Protocol Stop: 04/25/23 16:29 Last Admin: 03/27/23 21:13 Dose: 6 units Insulin Glargine (Lantus Per Unit Charge) 18 units SC DAILY@1700 KATE Stop: 04/26/23 16:59 Last Admin: 03/27/23 17:51 Dose: 18 units Lorazepam (Lorazepam 0.5 Mg Tab) 0.5 mg PO Q8H PRN PRN Reason: Sedation/Anxiety Stop: 04/25/23 14:16 Lorazepam (Lorazepam 2 Mg/1 Ml Vial) 0.5 mg IV Q8H PRN PRN Reason: Sedation/Anxiety Stop: 04/25/23 14:16 Losartan Potassium (Losartan Potassium 25 Mg Tab) 25 mg PO [facility] Stop: 04/25/23 20:59 Last Admin: 03/27/23 21:12 Dose: 25 mg Magnesium Hydroxide (Magnesium Hydroxide Susp 30 Ml Udc) 30 ml PO Q24H PRN PRN Reason: Constipation Stop: 04/25/23 14:16 Menthol (Cough Drop (Sugar Free) Rosaura 24 Rosaura/1 Box) 1 rosaura BUCCAL NOW PRN PRN Reason: Sore Throat Stop: 04/25/23 22:04 Metoclopramide HCl (Metoclopramide Hcl Inj 5 Mg/Ml 2 Ml Vial) 10 mg IV Q6H PRN PRN Reason: Nausea &/or Vomiting Stop: 04/25/23 14:16 Miscellaneous (Carbohydrates For Hypoglycemia ) 15 - 30 gm PO UD PRN PRN Reason: Hypoglycemia Treatment Stop: 04/25/23 14:59 Miscellaneous Information (Pharmacy Glycemic Mgmt Consult) 1 each N/A UD PRN PRN Reason: Consult Stop: 04/25/23 14:16 Naloxone HCl (Naloxone Hcl 0.4 Mg/1 Ml Vial/Carp) 0.1 mg IV Q5M PRN PRN Reason: Oversedation/Resp depression Stop: 04/25/23 14:16 Ondansetron HCl (Ondansetron Inj 2 Mg/Ml 2 Ml Vial) 4 mg IV Q6H PRN PRN Reason: Nausea &/or Vomiting Stop: 04/25/23 14:16 Ondansetron HCl (Ondansetron 4 Mg Od Tab) 4 mg PO Q6H PRN PRN Reason: Nausea Stop: 04/25/23 14:16 Oxycodone HCl (Oxycodone Hcl Ir 5 Mg Tab (Immediate Release)) 5 - 10 mg PO Q4H PRN PRN Reason: Pain & Pre PT Stop: 04/09/23 14:16 Last Admin: 03/27/23 18:33 Dose: 5 mg Pneumococcal Polyvalent Vaccine (Do Not Administer Pneumococcal Vaccine) 1 each N/A PRN PRN PRN Reason: Notification Stop: 04/25/23 14:16 Polyethylene Glycol (Polyethylene (Miralax) 17 Gm Pack) 17 gm PO Q6 KATE Stop: 04/26/23 05:59 Last Admin: 03/28/23 05:14 Dose: 17 gm Senna/Docusate Sodium (Docusate Sodium/Senna 50/8.6mg Tab) 2 tab PO HS KATE Stop: 04/25/23 20:59 Last Admin: 03/27/23 21:13 Dose: 2 tab Sodium Biphosphate/Sodium Phosphate (Sod Phosphate/Sod Biphosphate Enema 132 Ml Btl) 132 ml MI ONE PRN PRN Reason: Constipation Stop: 04/25/23 14:16 Tamsulosin HCl (Tamsulosin Hcl 0.4 Mg Cap) 0.4 mg PO HS KATE Stop: 04/25/23 20:59 Last Admin: 03/27/23 21:12 Dose: 0.4 mg Tramadol HCl (Tramadol Hcl 50 Mg Tablet) 50 - 100 mg PO Q4H PRN PRN Reason: Moderate-Severe pain & Pre PT Stop: 04/25/23 14:16 Last Admin: 03/26/23 22:58 Dose: 100 mg (2) HTN (hypertension) Hypertension type: essential hypertension Qualified Code(s): I10 - Essential (primary) hypertension
[2023-03-28] MEDS: INSULIN ASPART PER UNIT CHARGE SC SCH ×4 (08:39→20:23)
[2023-03-28] MEDS: hydroCHLOROthiazide 25 MG TAB PO SCH (08:39)
[2023-03-28] MEDS: POT PHOSPHATE MONOBASIC W/ SOD TAB PO SCH ×4 (09:40→20:25)
[2023-03-28] MEDS ORDERED: MAGNESIUM OXIDE 400 MG TAB PO ONE (09:42)
[2023-03-28] MEDS ORDERED: POTASSIUM CHLORIDE CRTAB 20 MEQ TABCR PO STA (09:42)
[2023-03-28] MEDS: HYDROmorphone INJ 0.5 MG/0.5 ML SYR IV PRN ×2 (10:03→14:48)
--- NOTE | 2023-03-28 12:15 | Orthopedic Progress Note ---
Date of Service March 28, 2023 Assessment & Plan (1) Spinal stenosis, lumbar region, with neurogenic claudication: Plan: This time continue physical therapy monitor CHERRI output anticipate discharge home tomorrow. Admission and Anticipated Discharge Date Admission Date: March 26, 2023 Subjective Back pain controlled leg pain markedly improved Physical Exam Physical Exam: Patient is comfortable. Is constricted testing. Results & Data Vital Signs (Past 12 Hours) Vital Signs Temp Pulse Resp BP BP Pulse Ox O2 Del Method 03/28/23 11:24 36.7 C 58 L 18 138/73 96 Room Air 03/28/23 07:27 37.0 C 73 18 133/75 94 Room Air 03/28/23 03:02 36.4 C L 60 18 139/70 90 Room Air
--- NOTE | 2023-03-28 13:03 | Pharmacy Report ---
Pharmacy Glycemic Short Note 2 - Date of Service March 28, 2023 - Glycemic Short BSG Results (Last 24 hours): 03/27/23 03/27/23 03/28/23 17:08 20:10 06:29 Glucose 170 H POC Glucose 151 H 149 H 03/28/23 03/28/23 08:07 11:54 Glucose POC Glucose 178 H 181 H OUTPATIENT ANTIDIABETIC REGIMEN: * Levemir 14 units SC PM * Novolog 6-12 units SC AC * Metformin 1000 mg PO BIDM * HbA1c: 6.8% (02/08/23) ASSESSMENT: 03/28: * Patient received total of 65 units of insulin yesterday, of which 18 units were basal * Fasting BSG improving ~170 mg/dL - possibly still seeing effects of steroids. Would anticipate BSGs to continue to improve as steroids wear off. Plan to scale back slightly on basal insulin to 15 units daily, which is closer to dose he takes at home * Planning for possible discharge tomorrow 03/27: * BSGs [phone]/dL the last 24h. Received 18 units of basal and 11 units of bolus insulin yesterday. * Tolerating diet, POD #1. * Continue Lantus 18 units for today. Fasting BSG was slightly elevated this AM, however steroids not continued. Re-evaluate basal in AM. Novolog tightened for elevated prandial BSGs. 03/26: * 77 yo M admitted on 03/26/23 post-operatively following a L2-L3 decompression and fusion with Dr Alanis. Pharmacy has been consulted to assist with inpatient glycemic management. Patient is a controlled Type 2 diabetic as an outpatient. Please refer to outpatient regimen and most recent HbA1c above. * Did receive 4 mg of IV dexamethasone sheng-operatively. No ongoing steroid orders. Ordered a type 2 diet, unsure if tolerating at this time. Will check with RN. * Pre-op BSG was 148 mg/dL. Post-op BSG was 164 mg/dL. * Will give a one time dose of Lantus at 30% of an increase from home dose given steroids. Will administer at dinner rather than bedtime to account fo r steroids. * Normal target range. Novolog will be started based on weight/stress of 3. Will add a single overnight check for the first post-op night only. PLAN FOR INPATIENT GLYCEMIC CONTROL: * Hold outpatient oral diabetes medications * Basal insulin * Lantus 15 units SC with dinner * Bolus insulin * NovoLog per scale ACHS or Q6hrs while NPO * Goal Range: Low 110 mg/dL - High 140 mg/dL * Correction Factor: 15 mg/dL/unit * Nutritional / Prandial insulin per carb ratio of 1 unit per 5 grams CHO consumed
--- NOTE | 2023-03-28 16:10 | Hospitalist Progress Note ---
Date of Service March 28, 2023 Assessment & Plan (1) Spinal stenosis, lumbar region, with neurogenic claudication: (2) Diabetes mellitus: (3) HTN (hypertension): (4) Dyslipidemia: Plan This is a 77-year-old male with significant past medical history of HTN, HLD, insulin-dependent T2DM, cognitive impairment and BPH presents for elective lumbar procedure by Dr. Alanis. S/P L3-L4 hardware removal, L2-L3 lumbar decompression fusion: on 03/26 EBL 150ml pain/wound management per ortho. activity and therapy as prescribed by ortho encourage incentive spirometry Pre op 14.4. Post Op Hb is 11.2. Possible acute blood loss anemia + dilutional. Monitor Insulin dependent type 2 diabetes mellitus a1c 02/08/23 6.8 chronic, stable continue insulin regimen per glycemic pharmacist, appreciate their assistance HTN chronic, elevated, likely in setting of pain, currently better. continue losartan,hctz HLD Continue statin chronic, stable Sinus bradycardia HR was down to 30s postoperatively. HR normally in 50s EKG noted sinus bradycardia, RBBB and T wave inversions in inferior leads He was asymptomatic at the time Troponin trend negative Home beta-hanna on hold. Cardiology evaluated, appreciate recommendation. May reconsider beta-hanna restart as an outpatient, follow-up with cardiology. BPH continue flomax chronic stable DVT ppx: SCDS FULL CODE PCP: Silvestre Swann PA Dispo: per primary Admission and Anticipated Discharge Date Admission Date: March 26, 2023 Subjective Patient seen and examined at bedside as a follow-up of medical management for status post lumbar decompression and fusion. Patient was lying in bed, on room air, NAD, reports some pain after physical therapy in the morning, fairly under control with pain medication, denies any new acute event overnight. Reports eating okay, has not moved bowel but is moving gas and denies any abdominal pain. Physical Exam Physical Exam: Constitutional:I + well hydrated; n o acute distress Eyes: PERRL, conjunctiva e normal, anicteri c sclerae ENMT: external ear and n ose normal, oropha rynx normal Respiratory: normal respiratory effort, lungs rylan ar to auscultation Cardiovascular:I Rate/Rhythm: regul ar rhythm and + br adycardic S1 S2 Gastrointestinal ( Abdomen): normal bowel sound s, soft, nontender , no hepatosplenom egaly Musculoskeletal: Clean dressing ov er surgical site w ith drain in situ. Minimal serosang uineous collection in the CHERRI drain. No pedal edema Neurologic: PERRL, EOMI, accom modation nl, no fa ce palsy, no dysar thria Psychiatric: A+Ox3, euthymic af fect Results & Data Results & Data Vital Signs (Past 12 Hours) Vital Signs Temp Pulse Resp BP Pulse Ox O2 Del Method 03/28/23 15:27 37.1 C 86 18 112/71 93 Room Air 03/28/23 11:24 36.7 C 58 L 18 138/73 96 Room Air 03/28/23 07:27 37.0 C 73 18 133/75 94 Room Air (2) Diabetes mellitus Diabetes mellitus type: type 2 Diabetes mellitus senior living insulin use: with senior living use Diabetes mellitus complication status: without complication Qualified Code(s): E11.9 - Type 2 diabetes mellitus without complications; 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
[2023-03-28] MEDS ORDERED: LANTUS PER UNIT CHARGE SC SCH (17:00)
[2023-03-28] MEDS: DONEPEZIL HCL 5 MG TAB PO SCH (20:25)
[2023-03-28] MEDS: ASPIRIN 81 MG ECTAB PO SCH (20:26)
[2023-03-28] MEDS: TAMSULOSIN HCL 0.4 MG CAP PO SCH (20:26)
[2023-03-28] MEDS: DOCUSATE SODIUM/SENNA 50/8.6MG TAB PO SCH (20:27)
[2023-03-28] MEDS: ATORVASTATIN 10 MG TAB PO SCH (20:27)
[2023-03-28] MEDS: LOSARTAN POTASSIUM 25 MG TAB PO SCH (20:27)
[2023-03-28] MEDS: oxyCODONE HCL IR 5 MG TAB (IMMEDIATE RELEASE) PO PRN (21:42)
[2023-03-29] MEDS: oxyCODONE HCL IR 5 MG TAB (IMMEDIATE RELEASE) PO PRN ×2 (02:57→08:37)
[2023-03-29] MEDS: HYDROmorphone INJ 1 MG/ML SYRINGE IV PRN (06:32)
[2023-03-29 07:08] LABS: Calcium 8.6 mg/dl (8.6-10.3); Creatinine Clr Calc Pharmacy 79.8 ml/min; Est GFR (African American) 89.6 ml/min; Est GFR (Non-African American) 77.3 ml/min; Phosphorus 3.1 mg/dl (2.5-4.9)
[2023-03-29] MEDS: POT PHOSPHATE MONOBASIC W/ SOD TAB PO SCH (08:16)
[2023-03-29] MEDS: hydroCHLOROthiazide 25 MG TAB PO SCH (08:16)
--- NOTE | 2023-03-29 08:29 | Discharge Summary ---
Date of Service March 29, 2023 Admission HPI Per Admitting Provider This is a 69-year-old male who presents with chronic persistent back and leg pain after failing course of nonoperative care is here for surgical invention. Principal Diagnosis Lumbar spinal stenosis with neurogenic claudication Discharge Data Allergies Allergy/AdvReac Type Severity Reaction Status Date / Time erythromycin base AdvReac Intermediate N/V, Verified 03/26/23 10:51 hematuria shellfish derived AdvReac Unknown severe Verified 03/26/23 10:51 nausea Consultations 03/26/23 14:17 Consult Hospitalist Routine 03/26/23 17:52 Consult Cardiology Routine Procedures Performed Operation Date: 03/26/23 11:25 Actual Procedures p L2-L3 Decompression and Fusion, Spinal Cord Monitoring(Not Applicable) - Haroldo Alanis DO s L3-L4 Hardware Removal,(Not Applicable) - Haroldo Alanis DO Ordered Studies 03/26/23 11:25 FL lumbar spine 2-3V Routine Hospital Course (1) Spinal stenosis, lumbar region, with neurogenic claudication: Patient underwent lumbar decompression fusion Valdez Saroj taken to the floor postoperatively. Postop day 1 is up and ambulating progress postop day #2 on postop day 3 pain was controlled CHERRI drain decreased appropriate. Excellent strength testing. Simply discharged home. Discharge orders instructions found in chart for further review. Total Time Total Time Spent Total Time Spent (In Minutes): 20 minutes Discharge Plan Discharge Items Patient Disposition: Home - Self-Care Reason For Visit: Unspecified Thoracic, Thoracolumbar & Lumbosacral Discharge Diagnosis: Lumbar spinal stenosis with neurogenic claudication Activity: As commented below Non-emergency contact: Primary Care Provider Call non-emergency contact if: you have any medication questions Follow-up/Referrals: Elijah Mcdaniel MD [Primary Care Provider] - Diet: Regular Addtl Attending Provider Instructions: ACTIVITY RECOMMENDATIONS: SELF CARE INSTRUCTIONS AFTER THORACIC/LUMBAR FUSIONS 1. You may walk to your tolerance. It is good exercise for your legs and back. Expect some back and intermittent leg aches and pains. 2. You may perform "counter-top" level activities (make a sandwich, philly with a project, etc.). 3. No bending or lifting of more than 10 pounds or back twisting of any nature (roll like a log when turning in bed). 4. You may ride in a car for 20-30 minutes at a time. No driving until after your first visit with your doctor. 5. Frequent changes of position and restricting sitting to 30 minutes at a time will help limit the amount of back spasms and stiffness you may experience. 6. You may discontinue the use of ambulatory aids (cane, crutches, etc.) once your strength and confidence allow. 7. You may planning intern the shower and let water strike your incision when you arrive home at least once daily. Do not take a tub bath, sit in a hot tub or go into a swimming pool until after your first recheck in the office. SPECIAL CARE INSTRUCTIONS: VERY IMPORTANT TO READ AND REVIEW A. Your surgical incision has been closed with a cosmetic suture under the skin that will dissolve in about 6 weeks. In 14 days, you can use a pair of clean scissors and cut the suture that is left outside of the skin at the ends of your incision. 1. The small skin tapes can be removed 7 days after surgery if they have not fallen off by that point. 2. You may keep the wound open to air as much as possible to promote healing after post-op day number 5 unless told otherwise by your doctor. 3. If you think the wound looks like it is becoming infected (redness or worsening drainage) and/or you are experiencing fever, chill or worsening back pain and muscle spasms, contact the office so that we may evaluate you as soon as possible. B. Complications are uncommon, but please contact us if you have any signs or symptoms of: 1. wound infection (fever higher than 102.5 degrees F, redness, separation of wound, drainage, or increasing pain from the incision) 2. blood clots in legs (pain, swelling, redness and warmth in legs) 3. urinary tract infection (fever higher than 102.5 degrees F, burning upon urination or increased frequency of urination) 4. nerve problems (inability to walk on your toes or heels, numbness, loss of bowel or bladder control) 5. any other symptoms that concern you C. Please call the office at if you have any concerns or questions about your operation or recovery. D. No smoking! Smoking drastically decreases the chance of a solid fusion. E. Do not take any anti-inflammatory medications (Indocin, Advil, Motrin, Aspirin, Naprosyn, etc.) as these may inhibit the chance of a solid fusion. Tylenol is okay to take for pain. MANAGING PAIN AFTER SPINAL SURGERY 1. Narcotic medication is intended for short-term use and will be provided for surgical pain. Surgical pain usually lasts for a period of 4-6 weeks. Narcotic medication includes Percocet, Vicodin, Darvocet, Tylenol #3 or Lortab. 2. Longer-term pain is more appropriately treated with non-narcotic medication such as Tylenol ES. 3. Muscle spasm is not appropriately treated with narcotics. Muscle relaxers such as Soma, Flexeril or Skelaxin can be used along with Tylenol ES. 4. Remember that we all live with some "aches and pains". This is not unusual or uncommon after an injury or as we get older. a. Back pain is expected and may include muscle spasms for 4 to 6 weeks after surgery. The pain should gradually improve. If the pain worsens for no apparent reason, please contact the office. b. Intermittent leg pain may also be experienced and should not be concerned about unless it worsens for no apparent reason. If so, please contact the office. 5. We will provide appropriate medication within the normal guidelines of their prescribed use. We will also be very cautious and aware of potential abuse and extended duration of patients' medication needs. a. Pain medications are for your comfort and to assist with sleep and rest so that the tissue can heal. They are not provided in order to return to normal activity and should not be used through the day. To do so or worsening pain at night can result from ongoing tissue damage and development of tolerance to the prescribed medicine. 6. Please allow 2-3 days to process refills. Prescriptions will not be mailed but must be picked up at the office. FOLLOW UP VISIT: Keep your scheduled follow-up appointment. Any questions, please call the office at . Pending Studies at Discharge: No Stand-Alone Forms: My [employer], Smoking Cessation Medications and DC Order Prescriptions: New tramadol 50 mg tablet 50 mg PO Q6H PRN (Reason: pain, moderate) Qty: 30 0RF oxycodone 5 mg tablet 5 mg PO Q6H PRN (Reason: pain) Qty: 30 0RF Continued aspirin [Aspir-81] 81 mg Tablet,Delayed Release (Dr/Ec) 81 mg PO HS insulin aspart U-100 [Novolog FlexPen U-100 Insulin] 100 unit/mL Insulin Pen 6 - 12 unit SUBCUT TIDM Levemir FlexTouch U100 Insulin 100 unit/mL (3 mL) Insulin Pen 14 unit SUBCUT QPM metformin 1,000 mg Tablet 1,000 mg PO BIDM atorvastatin [Lipitor] 10 mg Tablet 10 mg PO HS hydrochlorothiazide 12.5 mg Tablet 12.5 mg PO QAM donepezil [Aricept] 5 mg Tablet 5 mg PO HS tamsulosin [Flomax] 0.4 mg Capsule 0.4 mg PO HS losartan 25 mg Tablet 25 mg PO HS metoprolol succinate [Toprol XL] 25 mg Tablet Extended Release 24 Hr 25 mg PO QAM Discharge Orders: Discharge Order (Routine); Ordered 03/29/23 Ordered By: Haroldo Alanis Admission Data Admit Date/Time: 03/26/23 12:52 Attending Provider: Haroldo Alanis Admit Provider: Haroldo Alanis Primary Care Provider: Elijah Mcdaniel Other Providers: Lory Mcleod ; Francis Castellanos
[2023-03-29] MEDS: INSULIN ASPART PER UNIT CHARGE SC SCH (08:34)
--- NOTE | 2023-03-29 13:58 | Hospitalist Progress Note ---
Date of Service March 29, 2023 Assessment & Plan (1) Spinal stenosis, lumbar region, with neurogenic claudication: (2) Diabetes mellitus: (3) HTN (hypertension): (4) Dyslipidemia: Plan This is a 77-year-old male with significant past medical history of HTN, HLD, insulin-dependent T2DM, cognitive impairment and BPH presents for elective lumbar procedure by Dr. Alanis. S/P L3-L4 hardware removal, L2-L3 lumbar decompression fusion: on 03/26 EBL 150ml pain/wound management per ortho. activity and therapy as prescribed by ortho encourage incentive spirometry Pre op 14.4. Post Op Hb is 11.2. Possible acute blood loss anemia + dilutional. Monitor Insulin dependent type 2 diabetes mellitus a1c 02/08/23 6.8 chronic, stable continue insulin regimen per glycemic pharmacist, appreciate their assistance HTN chronic, elevated, likely in setting of pain, currently better. continue losartan,hctz HLD Continue statin chronic, stable Sinus bradycardia HR was down to 30s postoperatively. HR normally in 50s EKG noted sinus bradycardia, RBBB and T wave inversions in inferior leads He was asymptomatic at the time Troponin trend negative Home beta-hanna on hold -->>heart rate started to climb up, in 80s to 100s. Discussed with cardiology, metoprolol will be restarted at 12.5 mg daily. Patient has been made aware. Patient has been made aware to follow-up with cardiology upon discharge. Cardiology evaluated, appreciate recommendation. BPH continue flomax chronic stable DVT ppx: SCDS FULL CODE PCP: Silvestre Swann PA Dispo: per primary Admission and Anticipated Discharge Date Admission Date: March 26, 2023 Subjective Patient seen and examined at bedside as a follow-up of medical management for status post lumbar decompression and fusion. Patient was lying in bed, on room air, NAD, reports slowly getting better/reasonably controlled with pain meds. denies any new acute event overnight. Patient reports moving bowels okay, patient is eating okay Physical Exam Physical Exam: Constitutional:I + well hydrated; n o acute distress Eyes: PERRL, conjunctiva e normal, anicteri c sclerae ENMT: external ear and n ose normal, oropha rynx normal Respiratory: normal respiratory effort, lungs rylan ar to auscultation Cardiovascular:I Rate/Rhythm: regul ar rhythm and + br adycardic S1 S2 Gastrointestinal ( Abdomen): normal bowel sound s, soft, nontender , no hepatosplenom egaly Musculoskeletal: Clean dressing ov er surgical site w ith drain in situ. Minimal serosang uineous collection in the CHERRI drain. 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
== END 2023-03-29 11:32 | disposition home or self-care (01) | DRG 454 ==
LOC: ASU 10:20 → 3N 12:52 → 2N 19:16